=== PATIENT | male | born 1975 | race Caucasian/White ===

== ENCOUNTER 2018-03-22 12:50 | Outpatient (REF) | payer MEDICAID, SELFPAY ==
[2018-03-22 18:25] LABS: Anion Gap 10.5 mmol/L (3-11); BUN 16 mg/dL (7-18); CO2 24.5 mmol/L (21.0-32.0); CREATININE 1.43 mg/dL (0.70-1.30); Calcium 8.5 mg/dL (8.5-10.1); Chloride 104 mmol/L (98-107); Estimated GFR 54.23 (mL/min/1.73m2); Glucose 75 mg/dL (70-100); Potassium 4.2 mmol/L (3.5-5.1); Sodium 139 mmol/L (136-145)
== END 2018-03-22 12:51 ==
LOC: NCHCN 12:50
PROVIDERS: PCP Family Medicine; Visit Provider Nurse Practitioner Family
DX: I10 Essential (primary) hypertension (principal)
CPT/HCPCS: 80048

== ENCOUNTER 2018-05-11 19:18 | Outpatient (REF) | payer MEDICAID, SELFPAY ==
[2018-05-11 20:04] LABS: Cholesterol 235 mg/dL (50-200); HDL Cholesterol 60 mg/dL (40-60); LDL CHOLESTEROL 157 mg/dL (<100); Triglyceride 106 mg/dL (30-150)
== END 2018-05-11 19:38 ==
LOC: NCHCN 19:18
PROVIDERS: PCP Family Medicine; Referring Provider Nurse Practitioner Family; Visit Provider Nurse Practitioner Family
DX: E78.5 Hyperlipidemia, unspecified (principal)
CPT/HCPCS: 80061; 83721

== ENCOUNTER 2018-05-12 15:08 | Outpatient (CLI) | payer MEDICAID, SELFPAY ==
--- NOTE | 2018-05-12 12:00 | SATEXT_ITS ---
Assessment: Trevor presents for nutritional counseling for weight management. He reports that he is on Risperidone which increases his appetite and he eats throughout the night. He states that he is working to decrease his dose of Risperidone. His dietary recall shows that he does not eat breakfast because he has been snacking through the night on whatever is available. He has coffee. He has a large sandwich and a soda or [employer] for lunch. For dinner he has large portions of starch, meat, and vegetable. He states that he drinks water but not enough. We did not discuss his physical activity at this visit. He also reports that he would like to quit smoking concurrent with losing weight. He is 71.5 [address] Nutritional Diagnosis: Class 3 obesity related to excess energy intake and physical inactivity as evidenced by BMI of 49 kg/m2 Intervention: Acknowledged that losing weight and quitting smoking at the same time is a lot to take on however we can certainly develop some action plans for the weight loss. We did not make an action plan for increasing physical activity at this session. We discussed the usefulness of action planning in meeting goals. Trevor plans to increase his water intake and eliminate sugar sweetened beverages over the next few weeks. He is also going to focus on eating protein and vegetables at meal times. Monitoring and Evaluation: 1. Trevor will follow up with me in one month. Will monitor his weight and PO intake. 2. Will evaluate his progress on his action plans and adjust his nutrition care plan accordingly. Thank you for the referral.
== END 2018-05-12 15:28 ==
PROVIDERS: PCP Family Medicine; Visit Provider Dietitian, Registered
DX: E66.8 Other obesity (principal); Z68.42 Body mass index [BMI] 45.0-49.9, adult; Z71.3 Dietary counseling and surveillance
CPT/HCPCS: 97802

== ENCOUNTER 2018-07-18 16:07 | Outpatient (REF) | payer MEDICAID, SELFPAY ==
[2018-07-19 14:16] LABS: ALT 24 U/L (12-78); AST 22 U/L (15-37); Albumin 3.2 g/dL (3.4-5.0); Alkaline Phosphatase 107 U/L (46-116); Anion Gap 12.3 mmol/L (3-11); BUN 35 mg/dL (7-18); Bilirubin, Total 0.2 mg/dL (0.2-1.0); CO2 23.7 mmol/L (21.0-32.0); CREATININE 1.99 mg/dL (0.70-1.30); Calcium 8.6 mg/dL (8.5-10.1); Chloride 102 mmol/L (98-107); Estimated GFR 37.04 (mL/min/1.73m2); Glucose 113 mg/dL (70-100); Potassium 3.3 mmol/L (3.5-5.1); Sodium 138 mmol/L (136-145); Total Protein 7.2 g/dL (6.4-8.2)
== END 2018-07-18 16:27 ==
LOC: NCHCN 16:07
PROVIDERS: PCP Nurse Practitioner Family; Visit Provider Nurse Practitioner Family
DX: E03.9 Hypothyroidism, unspecified (principal)
CPT/HCPCS: 80053; 84443

== ENCOUNTER 2018-10-17 15:53 | Outpatient (REF) | payer MEDICAID, SELFPAY ==
[2018-10-17 18:58] LABS: Anion Gap 12.8 mmol/L (3-11); BUN 22 mg/dL (7-18); CO2 24.2 mmol/L (21.0-32.0); Calcium 8.9 mg/dL (8.5-10.1); Chloride 104 mmol/L (98-107); Estimated GFR 38.88 (mL/min/1.73m2); Glucose 97 mg/dL (70-100); Potassium 3.3 mmol/L (3.5-5.1); Sodium 141 mmol/L (136-145)
== END 2018-10-17 16:13 ==
LOC: NCHCN 15:53
PROVIDERS: PCP Nurse Practitioner Family; Visit Provider Nurse Practitioner Family
DX: E87.6 Hypokalemia (principal)
CPT/HCPCS: 80048

== ENCOUNTER 2019-01-04 17:44 | Outpatient (REF) | payer MEDICAID, SELFPAY ==
[2019-01-04 21:32] LABS: Anion Gap 11.7 mmol/L (3-11); BUN 31 mg/dL (7-18); CO2 25.3 mmol/L (21.0-32.0); CREATININE 1.88 mg/dL (0.70-1.30); Calcium 8.4 mg/dL (8.5-10.1); Chloride 103 mmol/L (98-107); Estimated GFR 39.36 (mL/min/1.73m2); Glucose 96 mg/dL (70-100); NT-proBNP 123 pg/mL; Potassium 3.1 mmol/L (3.5-5.1); Sodium 140 mmol/L (136-145)
[2019-01-04 22:10] LABS: COMMENT (LAB VIEW ONLY) 46.87 mg/dL; PROTEIN 265.9 mg/dL; Prot/Crea Ur Ratio 5.67
== END 2019-01-04 18:04 ==
LOC: NCHCN 17:44
PROVIDERS: PCP Nurse Practitioner Family; Visit Provider Family Medicine
DX: N18.3 Chronic kidney disease, stage 3 (moderate) (principal); L03.90 Cellulitis, unspecified; R06.02 Shortness of breath; I10 Essential (primary) hypertension
CPT/HCPCS: 80048; 82565; 83880; 84156

== ENCOUNTER 2019-01-10 16:31 | Outpatient (REF) | payer MEDICAID, SELFPAY ==
[2019-01-10 19:34] LABS: Anion Gap 10.9 mmol/L (3-11); BUN 27 mg/dL (7-18); CO2 26.1 mmol/L (21.0-32.0); CREATININE 1.66 mg/dL (0.70-1.30); Calcium 8.6 mg/dL (8.5-10.1); Chloride 103 mmol/L (98-107); Estimated GFR 45.44 (mL/min/1.73m2); Glucose 85 mg/dL (70-100); Potassium 3.5 mmol/L (3.5-5.1); Sodium 140 mmol/L (136-145)
== END 2019-01-10 16:51 ==
LOC: NCHCN 16:31
PROVIDERS: PCP Nurse Practitioner Family; Visit Provider Nurse Practitioner Family
DX: N18.3 Chronic kidney disease, stage 3 (moderate) (principal); E87.6 Hypokalemia
CPT/HCPCS: 80048

== ENCOUNTER 2019-01-11 09:15 | Emergency (ER) | payer MEDICAID, SELFPAY ==
[2019-01-11] VITALS (7 sets, daily range): BP systolic 149; BP diastolic 85; PULSE 78–81; RESP 13–20; TEMP 36.4; O2SAT 97–99
--- NOTE | 2019-01-11 09:31 | ED.GENADUL_ITS ---
Discharge Plan Disposition Patient Disposition: HOME Condition: Stable Discharge Details Chief Complaint: SOB Clinical Impression: Shortness of breath, Diuretic-induced hypokalemia Primary Care Provider: Michelle Park ED Provider: Scooby Azul Home Meds and New Rx's Prescriptions: Continued losartan 50 mg Tablet 50 mg PO DAILY RF: 0 furosemide 40 mg Tablet 40 mg PO BID RF: 0 atorvastatin 20 mg Tablet 20 mg PO QHS RF: 0 levothyroxine 50 mcg Tablet 50 mcg PO DAILY RF: 0 quetiapine [Seroquel] 400 mg Tablet 400 mg PO HS RF: 0 Discharge Instructions Instructions: Hypokalemia (ED), Dyspnea (ED) Additional Instructions: Ensure that you eat potassium rich foods while on your water pill. Return to the emergency department for any new or significant worsening of symptoms otherwise keep your appointment as previously scheduled to see her primary care provider next week. Referrals: Michelle Park [Primary Care Provider] - 01/17/19 Discharge Data Discharge Date/Time-TO BE ENTERED AT DEPARTURE: 01/11/19 14:34 Medical Decision Making Patient presenting the emergency department for chief complaint of shortness of breath. Patient states over the last 3 to 4 weeks he has noticed more shortness of breath and typically when he lays flat. Patient was seen by his primary care and concern for CHF and labs were drawn yesterday. Patient states this morning he noted worsening shortness of breath and so came to the emergency department. Patient does state bilateral leg swelling but has noted more swelling on the left leg for the past couple weeks. Patient denies any significant immobility but is significantly overweight/obese and states his activity level is low. Patient denies any family history of blood clots. Patient does state that he smokes and due to this ongoing shortness of breath stopped smoking approximately 1 week ago. He also does state that he wakes up in the middle the night having some difficulty breathing and concern for possible sleep apnea. Physical exam shows clear lung sounds, stable vital signs without hypoxia or tachycardia, normal cardiac exam, patient does have swelling to bilateral lower extremities with some noted increased swelling of the left lower leg but given by patient's body habitus it is difficult to fully distinguish, pulses are palpable bilateral lower extreme is. Concern for DVT/PE, possible COPD, sleep apnea. Patient denies any pain or discomfort. Plan to do labs, EKG, chest x-ray, and ultrasound. Of notation is patient does have history of decreased renal function so plan to do d-dimer. EKG reviewed with Dr. Clark and shows sinus rhythm with rate of 81, no acute ST abnormalities are noted to suggest ischemia. Labs are reviewed and show GFR of 49 which is slightly improved from other labs but ongoing decreased renal function, slightly decreased potassium with plan to orally replete, negative troponin, nondiagnostic CBC, elevated d-dimer 580. Chest x-ray shows Normal chest. No evidence of acute cardiopulmonary disease. And radiologist notes normal heart size. Patient still pending DVT study. DVT study was interpreted as negative for any thrombus. Given patient's complaint of shortness of breath and elevated d-dimer I did discuss with patient CTA. We discussed diet burden on his decreased renal function which today his GFR is 49 and creatinine of 1.54. After discussion of risk versus benefit patient agreed with performing study. I did speak with radiologist performing the scan with patient's ongoing renal issues but given possible emergency of PE plan to do study. Patient given 500 NS bolus to help renal function. Also given the patient has been here greater than 3 hours plan to do repeat troponin for full rule out of ACS which I feel is unlikely given denies of chest pain. The study is negative and shows some slight atelectasis otherwise no acute findings noted. Reassessed patient patient continues to do well. Spoke with patient about ensuring intake of potassium rich foods while on the diuretic, following up with primary care. Given some concern for sleep apnea did discuss with respiratory therapist about sleep study or additional testing. Plan on doing nightly oximetry and follow-up with respiratory therapy as directed. Return precautions discussed. After discussion of diagnosis and plan of care patient is no further needs, questions, or concerns and states clear understanding to return to the emergency department for any worsening symptoms. HPI General Mode of arrival: ambulatory . Date/Time Provider Initiated Documentation: 01/11/19 09:18 . Limitations to Documentation: no limitations . Information obtained by: patient and RN notes reviewed . History of Present Illness 43 year old M presents to the emergency department with the chief complaint of shortness of breath, Quality is described as other (denies), Patient started experiencing this week(s) (3) and it has been constant. No relieving factors improve symptom(s), Patient did receive the following treatments prior to arrival, none Related Data Home Medications Medication Instructions Recorded Confirmed atorvastatin 20 mg PO QHS 01/11/19 01/11/19 furosemide 40 mg PO BID 01/11/19 01/11/19 levothyroxine 50 mcg PO DAILY 01/11/19 01/11/19 losartan 50 mg PO DAILY 01/11/19 01/11/19 quetiapine [Seroquel] 400 mg PO HS 01/11/19 01/11/19 Allergies Allergy/AdvReac Type Severity Reaction Status Date / Time yellowjackets Allergy Uncoded 01/11/19 09:27 General Stated Complaint: SOB YASMINE: 2 Review of Systems Constitutional Denies chills, Denies fever(s) and Denies malaise Cardiovascular Reports as per HPI, Reports chest pain, Denies chest pain with activity, Denies syncope, Denies irregular heart rhythm, Denies palpitations and Denies dyspnea Respiratory Denies cough, Denies hemoptysis and Denies dyspnea Gastrointestinal Denies abdominal pain, Denies nausea and Denies vomiting Neurologic Denies syncope Psychiatric Denies anxiety Endocrine Denies cold intolerance, Denies heat intolerance and Denies palpitations PFSH Social History Smoking/Tobacco Use Status: Former Tobacco Use Quit Date: 01/04/19 Alcohol Intake: former Drug use: Never Substance use type: does not use Do you feel safe at home: Yes Do you feel safe in your relationship?: Yes Exam Const General: cooperative, healthy appearing, comfortable, no acute distress, not diaphoretic and not ill appearing Nutritional Appearance: average body habitus Orientation: alert, awake and oriented x3 Limitations: mental status not altered Neck Neck: normal visual inspection, full ROM, trachea midline, supple and no anterior neck swelling Thyroid: thyroid normal Carotids: normal carotid upstroke and no bruits Chest Chest: normal inspection of the chest Resp Effort & Inspection: normal respiratory effort and able to speak in complete sentences Auscultation: clear to auscultation bilaterally Cardio Jugular venous pressure: no JVD Palpation: normal PMI Rate: regular rate Rhythm: regular rhythm Heart Sounds: S1 normal, S2 normal, no click, no gallops, no murmurs and no rubs Bruits: no abdominal aortic bruits and no carotid bruits Pulses: radial pulses present bilaterally 2+ GI Inspection: normal to inspection Palpation: soft, no aortic enlargement, no pulsatile masses and nontender Auscultation: normal bowel sounds Skin General skin exam: no rashes or lesions noted Neuro General: alert, awake, oriented x3, tone normal and moves all extremities Extrem Right lower extremity: edema Details: non-pitting Left lower extremity: edema Details: non-pitting Course Vital Signs Temperature 36.4 C L 01/11/19 09:22 Pulse 81 01/11/19 09:22 Respiratory Rate 16 01/11/19 09:22 Blood Pressure 149/85 H 01/11/19 09:22 Pulse Oximetry 98 01/11/19 09:22 Temperature 36.4 C L 01/11/19 09:22 Temperature Source Temporal Artery Scan 01/11/19 09:22 Pulse 81 01/11/19 09:22 Respiratory Rate 16 01/11/19 09:22 Blood Pressure 149/85 H 01/11/19 09:22 Blood Pressure Position Sitting 01/11/19 09:22 Pulse Oximetry 98 01/11/19 09:22 Oxygen Delivery Method Room Air 01/11/19 09:22 Oxygen Flow Rate 0 01/11/19 09:22 Pain Level 0 01/11/19 09:22
--- NOTE | 2019-01-11 09:42 | DI.US_ITS ---
SYMPTOMS/DIAGNOSIS: LEG SWELLING RIGHT LEG ULTRASOUND: There is no evidence of DVT. There is no evidence of romeo's cyst or clot in the superficial venous system. LEFT LEG ULTRASOUND: There is no evidence of DVT. There is no evidence of a romeo's cyst or thrombus in the superficial venous system.
[2019-01-11 09:54] LABS: Abs Immature Grans 0.16 k/cumm (0.0-0.09); Absolute Basophil Count 0.07 k/cumm (0.0-0.2); Absolute Eosinophil Count 0.41 k/cumm (0.0-0.7); Absolute Lymphocyte Count 1.48 k/cumm (1.2-3.4); Absolute Monocyte Count 0.86 k/cumm (0.11-0.7); Absolute Neutrophil Count 6.75 k/cumm (1.2-6.7); Basophils % 0.7; Eosinophils % 4.2; HCT 41.6 % (40.0-50.0); HGB 13.6 g/dL (13.5-17.5); Immature Grans % 1.6; Lymphocytes % 15.2; Mean Corp. HGB Concentration 32.7 g/dL (32.0-36.0); Mean Corpuscular Hemoglobin 26.8 pg (27.0-33.0); Mean Corpuscular Volume 82.1 fL (80-95); Mean Platelet Volume 9.7 fL (8.0-11.0); Monocytes % 8.8; Neutrophils % 69.5; Platelet Count 259 x1000/uL (130-400); RBC 5.07 m/cumm (4.50-6.00); RBC Distribution Width 14.9 % (11.8-14.1); White Blood Cell Count 9.73 k/cumm (4.4-10.8)
[2019-01-11 10:08] LABS: INR 0.9 (0.9-1.1); PTT Activated 25.9 sec (21.0-31.4)
[2019-01-11 10:10] LABS: ALT 25 U/L (12-78); AST 19 U/L (15-37); Albumin 2.6 g/dL (3.4-5.0); Alkaline Phosphatase 102 U/L (46-116); Anion Gap 9.4 mmol/L (3-11); BUN 27 mg/dL (7-18); Bilirubin, Total 0.2 mg/dL (0.2-1.0); CO2 26.6 mmol/L (21.0-32.0); CREATININE 1.54 mg/dL (0.70-1.30); Calcium 8.7 mg/dL (8.5-10.1); Chloride 104 mmol/L (98-107); Estimated GFR 49.55 (mL/min/1.73m2); Glucose 90 mg/dL (70-100); Magnesium 2.2 mg/dL (1.8-2.4); Potassium 3.3 mmol/L (3.5-5.1); Sodium 140 mmol/L (136-145)
--- NOTE | 2019-01-11 10:13 | DI.RAD_ITS ---
SYMPTOM/DIAGNOSIS: SOB PA AND LATERAL CHEST: The heart is normal in size. The lungs are clear. The mediastinal structures and pleura appear intact. CONCLUSION: Normal chest. No evidence of acute cardiopulmonary disease.
[2019-01-11 10:24] LABS: D-Dimer 580 ng/mlFEU (<500)
[2019-01-11 10:36] LABS: Troponin I < 0.02 ng/mL (0.00-0.06)
--- NOTE | 2019-01-11 11:57 | DI.CT_ITS ---
SYMPTOMS/DIAGNOSIS: SHORTNESS OF BREATH PE CHEST CTA: CT angiography was performed with multi slice acquisition and multi planar and 3D reconstruction. The study was conducted according to the usual protocol with intravenous administration of 100 cc's of Omnipaque 350. There is no evidence of pulmonary embolic disease. Small regions of atelectasis are noted in the lung bases. There is no pleural effusion. The heart is not enlarged. There is no evidence of a pericardial effusion. There is no evidence of an acute aneurysm.
[2019-01-11] MEDS: Normal Saline 500 ML IV (12:45)
[2019-01-11] MEDS: Normal Saline Flush 10 ML SYR IVP (12:45)
[2019-01-11] MEDS: Omnipaque 350 MG/ML 100 ML BTL IJ (12:46)
[2019-01-11] MEDS: POTASSIUM CHLORIDE 20 MEQ, POTASSIUM CHLORIDE 10 MEQ 30 MEQ PO (13:02)
--- NOTE | 2019-01-11 13:34 | RESPIRATORY ---
01/11/19-Discussed with Pt about nicotine replacement . States he uses the patch and gum and is still having a hard time. Pt would like to try nicotrol haler. I have contacted [facility]'s nurse to request a RX . PFT and sleep study referral requested as well. Overnight Oximetry given to pt to wear tonnight, as well.
[2019-01-11 14:01] LABS: Troponin I < 0.02 ng/mL (0.00-0.06)
[2019-01-11] MEDS: Nicotine 4 MG GUM (14:36)
--- NOTE | 2019-01-12 09:40 | SAO2N_ITS ---
SAO2 with Exercise Patient:BETHANIE CAMARA Date/Time: 01/12/19 0940 [id number] Tech:
== END 2019-01-11 14:34 | disposition home or self-care (01) ==
PROVIDERS: Emergency Provider Nurse Practitioner Family; PCP Nurse Practitioner Family
DX: R06.02 Shortness of breath (principal); T50.2X5A Adverse effect of carbonic-anhydrase inhibitors, benzothiadiazides and other diuretics, initial encounter; E87.6 Hypokalemia; R60.0 Localized edema; F17.210 Nicotine dependence, cigarettes, uncomplicated
CPT/HCPCS: 36415; 71275; 80053; 93005; 96360; 99284; 71046; 83735; 84484; 85025; 85379; 85610; 85730; 93010; 93970; 94762; J3490

== ENCOUNTER 2019-01-13 01:33 | Outpatient (CLI) | payer MEDICAID, SELFPAY ==
--- NOTE | 2019-01-13 16:00 | DI.US_ITS ---
SYMPTOM/DIAGNOSIS: CHRONIC KIDNEY DISEASE, N18.3 RENAL ULTRASOUND: The kidneys are normal in size and shape and there is no evidence of a renal mass, hydronephrosis or nephrolithiasis. Urinary bladder is unremarkable in appearance and empties completely with voiding with pre and post void urinary bladder volume measurements of 40 cc's and 0 cc's respectively. CONCLUSION: Negative renal ultrasound.
== END 2019-01-13 01:53 ==
PROVIDERS: PCP Nurse Practitioner Family; Visit Provider Family Medicine
DX: N18.3 Chronic kidney disease, stage 3 (moderate) (principal)
CPT/HCPCS: 76770

== ENCOUNTER 2019-01-18 16:06 | Outpatient (REF) | payer MEDICAID, SELFPAY ==
[2019-01-18 19:31] LABS: Anion Gap 5.5 mmol/L (3-11); BUN 15 mg/dL (7-18); CO2 26.5 mmol/L (21.0-32.0); Calcium 8.3 mg/dL (8.5-10.1); Chloride 106 mmol/L (98-107); Estimated GFR 47.41 (mL/min/1.73m2); Glucose 90 mg/dL (70-100); Sodium 138 mmol/L (136-145)
== END 2019-01-18 16:26 ==
LOC: NCHCN 16:06
PROVIDERS: PCP Nurse Practitioner Family; Visit Provider Nurse Practitioner Family
DX: N18.3 Chronic kidney disease, stage 3 (moderate) (principal); E87.6 Hypokalemia; R60.0 Localized edema
CPT/HCPCS: 80048

== ENCOUNTER 2019-07-20 16:31 | Inpatient (IN) | payer MEDICAID, SELFPAY ==
[2019-07-20] VITALS (10 sets, daily range): BP systolic 159–189; BP diastolic 88–112; PULSE 66–76; RESP 4–21; TEMP 36.6–36.9; O2SAT 93–96
[2019-07-20] MEDS: Albuterol/Ipratropium 3 ML UPD VIAL ×2 (16:42→18:30)
[2019-07-20] MEDS: Lidocaine 5% Patch 1 PATCH (16:42)
--- NOTE | 2019-07-20 16:51 | W.ED.GENAD ---
Discharge Plan Disposition Patient Disposition: [facility] INPATIENT Condition: Good Discharge Details Chief Complaint: Abd Prob Clinical Impression: FRANCY (acute kidney injury), Multiple pulmonary nodules, Bronchitis Primary Care Provider: Michelle Park ED Provider: Wes Carpenter Home Meds and New Rx's Prescriptions: No Action acetaminophen [Tylenol Extra Strength] 500 mg Tablet 1,000 mg PO PRN PRNRF: 0 losartan 50 mg Tablet 50 mg PO DAILY RF: 0 furosemide 40 mg Tablet 40 mg PO BID RF: 0 atorvastatin 20 mg Tablet 20 mg PO QHS RF: 0 levothyroxine 50 mcg Tablet 50 mcg PO DAILY RF: 0 quetiapine [Seroquel] 400 mg Tablet 350 mg PO HS RF: 0 Medical Decision Making This is a pleasant 43-year-old male with a past medical history of hypertension, congestive heart failure on regular Lasix, high cholesterol morbid obesity who presents today for evaluation of right lower chest and right upper abdominal pain. Patient has not had any of his 40 mg twice daily Lasix for the last month, he has noticed a weight gain, significant consistent cough. Over the last 48 hours after significant coughing episodes he had notable pain in the right lower chest and right upper abdomen. Exam demonstrates diffuse crackles and wheezes throughout, mild pitting edema, questionable bulge versus hernia in the right upper quadrant of the abdomen. Differential includes rib fracture muscle sprain in a notable CHF exacerbation. We will diurese, given sublingual nitroglycerin, given DuoNeb, and reassess. 7 PM Reassessment with Dilaudid and DuoNeb the patient is feeling better, pain is still present with movement though. CT imaging shows some pulmonary nodules but no other acute abnormality in the chest, no rib fracture. No other acute abdominal pathologies. No evidence of hernia. I suspect the bulge that I was feeling was more so of a rectus diastases potentially in the obese abdomen. Labs interestingly show a notably elevated creatinine at 2.2, which is a jump from his baseline of 1.5. BUN 27, electrolytes normal, he is making urine and did urinate 400 mL's. Troponin is normal, pro proBNP is 540, urinalysis does show notable protein and moderate blood. Although clinically the patient appeared to look more like CHF exacerbation now in this setting with laboratory work-up I feel that there may be more so of a component of hypertensive acute kidney injury with potential mild fluid overload. I do feel that the patient is suffering from bronchitis as the cause of his cough, however with his acute kidney injury, and fragile fluid status I do feel that he would benefit from admission, formal echo, and close monitoring. I did contact the hospitalist and discussed the case with , he agrees with the assessment and plan. I will place admission orders. I have extensively reviewed the treatment plan with the patient. I have addressed all patient concerns at this time. I have also discussed the plan with the admitting physician and they agree with the current assessment and plan and have agreed to assume responsibility for the patient. All parties demonstrate verbal understanding and agreement with our assessment and plan at this time. EKG 17: 00 Rate 71, intervals normal, sinus rhythm, no significant ST elevation or depression, no T wave inversions except for in V1. No evidence of STEMI. No Q waves. FINDINGS: Lungs: 9 mm nodule along the right minor fissure (2/29). 4 mm nodule in the lateral segment of the right lower lobe (slice 53). 3 mm nodule in the lateral segment of the left lower lobe (2/49). 2 mm nodule in the lateral segment of the left lower lobe (2/42). Pleural space: Unremarkable. No pneumothorax. No pleural effusion. Heart: Unremarkable. No cardiomegaly. No pericardial effusion. Aorta: Unremarkable. No aortic aneurysm. Lymph nodes: Unremarkable. No enlarged lymph nodes. Bones/joints: Unremarkable. No acute fracture. Soft tissues: Unremarkable. IMPRESSION: Pulmonary nodules.For patients at low risk (minimal or absent history of smoking and of other known risk factors), recommend CT at 3-6 months, then consider CT at 18-24 months. For patients at high risk (history of smoking or of other known risk factors), recommend CT at 3-6 months, then CT at 18-24 months. (Lou et al., Fleischner Society, 2017) FINDINGS: Liver: Normal. No mass. Gallbladder and bile ducts: Normal. No calcified stones. No ductal dilation. Pancreas: Normal. No ductal dilation. Spleen: Normal. No splenomegaly. Adrenals: Normal. No mass. Kidneys and ureters: Normal. No hydronephrosis. Stomach and bowel: Unremarkable. No obstruction. No mucosal thickening. Appendix: No evidence of appendicitis. Intraperitoneal space: Unremarkable. No free air. No significant fluid collection. Vasculature: Unremarkable. No abdominal aortic aneurysm. Lymph nodes: Unremarkable. No enlarged lymph nodes. Bladder: Unremarkable as visualized. Reproductive: Unremarkable as visualized. Bones/joints: Unremarkable. No acute fracture. Soft tissues: Unremarkable. IMPRESSION: No acute findings. Dictated and Authenticated by: Mick Cleaning MD. HPI General Date/Time Provider Initiated Documentation: 07/20/19 16:33. HPI Narrative: This is a pleasant 43-year-old male with a past medical history of thyroid disease, congestive heart failure with 40 mg of Lasix twice daily, high cholesterol, obesity, hypertension, who presents today for evaluation of right-sided rib and upper abdomen pain, in conjunction with cough and shortness of breath. Patient states that for the last month he has not had any of his normal Lasix, he has noticed a weight gain recently. He has been having a continuous cough, he has notable positional nocturnal dyspnea. His cough has been absent of hemoptysis, or atypical colors. Over the last 48 hours the patient after significant coughing episodes had significant right-sided lower chest pain and right upper quadrant abdominal pain. Worse with coughing, not present with breathing in general. He denies any fever or chills, he denies any history of blood clots recent long trips surgeries or procedures. He denies any central chest pain chest pressure chest heaviness. He has no other complaints at this time. Related Data Home Medications Medication Instructions Recorded Confirmed atorvastatin 20 mg PO QHS 01/11/19 07/20/19 furosemide 40 mg PO BID 01/11/19 07/20/19 levothyroxine 50 mcg PO DAILY 01/11/19 07/20/19 losartan 50 mg PO DAILY 01/11/19 07/20/19 quetiapine [Seroquel] 350 mg PO HS 01/11/19 07/20/19 acetaminophen [Tylenol Extra 1,000 mg PO PRN PRN 07/20/19 07/20/19 Strength] Allergies Allergy/AdvReac Type Severity Reaction Status Date / Time yellowjackets Allergy Uncoded 07/20/19 16:40 General Stated Complaint: Abd Prob YASMINE: 3 Review of Systems All systems reviewed & are unremarkable except as noted in HPI and below PFSH Social History Smoking/Tobacco Use Status: Former Tobacco Use Quit Date: 01/04/19 Alcohol Intake: former Drug use: Never Substance use type: does not use Do you feel safe at home: Yes Do you feel safe in your relationship?: Yes Exam Narrative Exam Narrative: 1.Const: Well-nourished, Well-developed, appearing stated age 2.Eyes: PERRL, no conjunctival injection, and symmetrical lids. 3.ENT: Atraumatic external nose and ears. Moist MM. Neck: Symmetric, trachea midline, No thyromegaly. 4.CVS: +S1/S2, No murmurs or gallops. Peripheral pulses 2+ and equal in all extremities. Brisk capillary refill in all extremities. 5.RESP: Mildly labored respiratory effort, crackles in the bases bilaterally, diffuse wheezes throughout. 6.GI: Soft, Nondistended, No hepatosplenomegaly. No guarding or rebound. Questionable bulge in the right upper quadrant of the abdomen, difficult to ascertain secondary to the patient's obesity. 7.MSK: Normocephalic/Atraumatic, Extremities w/o deformity or ttp No cyanosis or clubbing, Normal movement of all extremities, mild tibial pitting edema bilaterally. 8.Skin: Warm, Dry. No rashes or lesions. 9.Neuro: senior etl developer II-XII grossly intact. Sensation grossly intact, no focal neurologic deficits. 10.Psych: (AAO) x3. Appropriate mood and affect Course Vital Signs Vital signs: Vital Signs Temperature 36.6 C 07/20/19 16:31 Pulse 76 07/20/19 16:31 Respiratory Rate 18 07/20/19 16:31 Blood Pressure 189/107 H 07/20/19 16:31 Pulse Oximetry 95 07/20/19 16:31 Temperature 36.6 C 07/20/19 16:31 Temperature Source Skin 07/20/19 16:31 Pulse 76 07/20/19 16:31 Respiratory Rate 18 07/20/19 16:31 Respiratory Effort 07/20/19 16:38 Blood Pressure 189/107 H 07/20/19 16:31 Blood Pressure Position Supine 07/20/19 16:31 Pulse Oximetry 95 07/20/19 16:31 Oxygen Delivery Method Room Air 07/20/19 16:31 Oxygen Flow Rate 0 07/20/19 16:31 Pain Level 10 07/20/19 16:31
[2019-07-20] MEDS: Ketorolac 30 MG/ML VIAL IVPB (16:56)
[2019-07-20] MEDS: Furosemide 40 MG/4 ML VIAL IVP (16:57)
[2019-07-20 17:09] LABS: Abs Immature Grans 0.07 k/cumm (0.0-0.09); Absolute Basophil Count 0.06 k/cumm (0.0-0.2); Absolute Eosinophil Count 0.31 k/cumm (0.0-0.7); Absolute Lymphocyte Count 1.58 k/cumm (1.2-3.4); Absolute Monocyte Count 0.68 k/cumm (0.11-0.7); Absolute Neutrophil Count 5.62 k/cumm (1.2-6.7); Basophils % 0.7; Eosinophils % 3.7; HGB 13.7 g/dL (13.5-17.5); Immature Grans % 0.8; Mean Corp. HGB Concentration 32.6 g/dL (32.0-36.0); Mean Corpuscular Hemoglobin 26.4 pg (27.0-33.0); Mean Corpuscular Volume 81.1 fL (80-95); Mean Platelet Volume 9.6 fL (8.0-11.0); Monocytes % 8.2; Neutrophils % 67.6; Platelet Count 227 x1000/uL (130-400); RBC 5.18 m/cumm (4.50-6.00); White Blood Cell Count 8.32 k/cumm (4.4-10.8)
[2019-07-20] MEDS: Ondansetron 4 MG/2 ML VIAL IVP (17:23)
[2019-07-20] MEDS: HYDROmorphone 2 MG/ML VIAL 1 MG IVP ×2 (17:24→18:31)
[2019-07-20 17:26] LABS: ALT 21 U/L (16-63); AST 24 U/L (15-37); Albumin 2.1 g/dL (3.4-5.0); Alkaline Phosphatase 104 U/L (46-116); Anion Gap 10.5 mmol/L (3-11); BUN 27 mg/dL (7-18); Bilirubin, Total 0.2 mg/dL (0.2-1.0); CO2 22.5 mmol/L (21.0-32.0); Calcium 8.4 mg/dL (8.5-10.1); Chloride 108 mmol/L (98-107); Estimated GFR 32.83 (mL/min/1.73m2); Glucose 102 mg/dL (74-106); Sodium 141 mmol/L (136-145); Total Protein 6.5 g/dL (6.4-8.2); Troponin I < 0.05 ng/Ml (<0.06)
[2019-07-20 17:44] LABS: Lipase 97 U/L (73-393); NT-proBNP 540 pg/mL (<300)
--- NOTE | 2019-07-20 17:52 | DI.CT_ITS ---
EXAM: CT CHEST/ABD/PEL WO CLINICAL HISTORY: right lower CP and RUQ pain/mass TECHNIQUE: Imaging Protocol: Axial computed tomography images with coronal and sagittal reformatted images were created and reviewed CONTRAST MATERIAL: Intravenous: Omnipaque 350 Contrast volume:0 mL contrast route:IV - Oral: No COMPARISON: CT CHEST PE CTA from 01/11/2019 FINDINGS: CHEST: Tracheobronchial tree: Patent where visualized. Mediastinum and Kathrin: No dominant adenopathy or fluid collection. Pulmonary parenchyma: No consolidation. There are pulmonary nodules present. The largest is along the right minor fissure and measures 9 millimeters. (Series 2, image 29). There is a 4 millimeter nodule in the right lower lobe (series 2, image 53). There is a 3 millimeter nodule in the lateral segment of the left lower lobe (series 2, image 49). There is a 2 millimeter nodule in the lateral segment of the left lower lobe (series 2, image 42). No architectural distortion. Pleura: No effusion or pneumothorax. Aorta: Thoracic portion non-dilated. Heart: No cardiomegaly. No pericardial effusion. No coronary artery calcification. ABDOMEN: Liver: Normal density. No measurable mass. Gallbladder and biliary tract: No radiodense calculus or dilation. Pancreas: Normal density, no abnormal calcifications or inflammatory process. Spleen: Normal. Kidneys: Normal size, contour and axis. No radiodense stones or obstructive uropathy. No masses seen. Adrenal glands: There is a stable 1.7 centimeter left adrenal nodule. The right adrenal gland is unr emarkable. Lymph nodes: Within normal limits. Aorta: Abdominal portion non-dilated. PELVIS: Bladder: Symmetric distention, no gross wall thickening. Bowel: The mid sigmoid colon there is a very narrowed section of bowel measuring approximately 4 cent imeters in length. The diameter is less than 1 centimeter. The proximal colon is not dilated. Ther e is a moderate amount of stool throughout the colon. A normal appendix is visualized. The remainder of the bowel is unremarkable. Peritoneal cavity: No ascites, collection or mesenteric inflammatory response. Bones: Within normal limits. Reproductive organs: Within normal limits. IMPRESSION: 1. 4 centimeter length of narrowed bowel in the mid sigmoid colon. Barium enema or colonoscopy are r ecommended for further evaluation. Colonoscopy may also be considered 2. No acute pulmonary process. 3. Multiple pulmonary nodules. Follow-up CT is recommended in 3 months given the size of the largest pulmonary nodule. These findings were discussed with the emergency department on 07/21/19. 3 to 6 months for re evaluation. DATA REPOSITORY: All CT scans at this facility are submitted to the National Radiology Data Registry (NRDR) Dose Index Registry (DIR) with the [employer] (A[employer]). RADIATION OPTIMIZATION: All CT scans at this facility use at least one of these dose optimization te chniques: automated exposure control; mA and/or kV adjustment per patient size (includes targeted exa ms where dose is matched to clinical indication); or iterative reconstruction.
--- NOTE | 2019-07-20 18:19 | DI.VRAD_ITS ---
PROCEDURE INFORMATION: Exam: CT Chest Without Contrast Exam date and time: 07/20/2019 5:50 PM Age: 43 years old Clinical history: Other: Ruq pain/mass; Other: Right lower cp TECHNIQUE: Imaging protocol: Computed tomography of the chest without contrast. Radiation optimization: All CT scans at this facility use at least one of these dose optimization techniques: automated exposure control; mA and/or kV adjustment per patient size (includes targeted exams where dose is matched to clinical indication); or iterative reconstruction. COMPARISON: US renal 01/13/2019 3:41 PM FINDINGS: Lungs: 9 mm nodule along the right minor fissure (2/29). 4 mm nodule in the lateral segment of the right lower lobe (slice 53). 3 mm nodule in the lateral segment of the left lower lobe (2/49). 2 mm nodule in the lateral segment of the left lower lobe (2/42). Pleural space: Unremarkable. No pneumothorax. No pleural effusion. Heart: Unremarkable. No cardiomegaly. No pericardial effusion. Aorta: Unremarkable. No aortic aneurysm. Lymph nodes: Unremarkable. No enlarged lymph nodes. Bones/joints: Unremarkable. No acute fracture. Soft tissues: Unremarkable. IMPRESSION: Pulmonary nodules.For patients at low risk (minimal or absent history of smoking and of other known risk factors), recommend CT at 3-6 months, then consider CT at 18-24 months. For patients at high risk (history of smoking or of other known risk factors), recommend CT at 3-6 months, then CT at 18-24 months. (Lou et al., Fleischner Society, 2017) PROCEDURE INFORMATION: Exam: CT Abdomen And Pelvis Without Contrast Exam date and time: 07/20/2019 5:50 PM Age: 43 years old Clinical history: Other: Ruq pain/mass; Other: Right lower cp TECHNIQUE: Imaging protocol: Computed tomography of the abdomen and pelvis without contrast. Radiation optimization: All CT scans at this facility use at least one of these dose optimization techniques: automated exposure control; mA and/or kV adjustment per patient size (includes targeted exams where dose is matched to clinical indication); or iterative reconstruction. COMPARISON: US renal 01/13/2019 3:41 PM FINDINGS: Liver: Normal. No mass. Gallbladder and bile ducts: Normal. No calcified stones. No ductal dilation. Pancreas: Normal. No ductal dilation. Spleen: Normal. No splenomegaly. Adrenals: Normal. No mass. Kidneys and ureters: Normal. No hydronephrosis. Stomach and bowel: Unremarkable. No obstruction. No mucosal thickening. Appendix: No evidence of appendicitis. Intraperitoneal space: Unremarkable. No free air. No significant fluid collection. Vasculature: Unremarkable. No abdominal aortic aneurysm. Lymph nodes: Unremarkable. No enlarged lymph nodes. Bladder: Unremarkable as visualized. Reproductive: Unremarkable as visualized. Bones/joints: Unremarkable. No acute fracture. Soft tissues: Unremarkable. IMPRESSION: No acute findings. Dictated and Authenticated by: Mick Cleaning MD. Ordering:NIMCO Harvey MD
[2019-07-20] MEDS: Labetalol 100 MG/20 ML VIAL 10 MG IVP (18:30)
[2019-07-20 19:22] LABS: Bilirubin Negative (Negative); Blood Moderate (Negative); Clarity Clear (Clear); Glucose Negative (Negative); Ketones Negative (Negative); Leukocyte Esterase Negative (Negative); Nitrite Negative (Negative); Specific Gravity 1.025 (1.005-1.025); Urobilinogen 0.2 EU/dL (Up TO 0.2); pH 5.5 (5-8)
[2019-07-20 19:29] LABS: Bacteria Negative HPF (Negative); C & S Indicated? No; Casts Negative LPF (Negative); Crystals Few Amorphous HPF (Negative); Epithelial Cells Negative HPF (Negative); Mucus Trace (Negative); Other Cells Negative (Negative); RBC Negative HPF (0-2); WBC 0-2 HPF (0-5)
[2019-07-20 20:01] LABS: Troponin I < 0.05 ng/Ml (<0.06)
--- NOTE | 2019-07-20 21:46 | W.PM.HP.N ---
Date of service: 07/20/19 Time of Service: 21:46 Assessment and Plan Assessment and plan (1) Bronchitis, acute, with bronchospasm: Status: Acute Assessment and plan: We will treat his acute reactive airway disease with aerosolized bronchodilators along with IV corticosteroids and transition over to prednisone tomorrow. There is some questionable purulence to his sputum. He reportedly had recent change in his sputum production to a brownish from a previous color of whitish mucus. He has no fever or leukocytosis therefore it is less likely that it is a bacterial infection. Nevertheless I will cover him with some doxycycline in addition to the above remedies. For his coughing paroxysms him to start him on Tessalon Perles and Mucinex. His chest wall and abdominal pain will be treated with Lidoderm patch along with Tylenol. He should avoid NSAIDs because of his chronic kidney disease. (2) Essential hypertension, benign: Status: Acute Assessment and plan: His essential hypertension is poorly controlled due to multiple reasons. First and foremost he ran out of his furosemide although he states he is continued to take his losartan. Secondly he is recently been diagnosed with obstructive sleep apnea for which she has not yet been treated. He says he is scheduled for follow-up study July 27. I presume they will do a titration study at that point. This should help with his essential hypertension and help prevent right-sided heart failure. Although Dr. Carpenter is documented that he has a history of CHF the patient is not aware of any formal diagnosis of CHF and has not had an echocardiogram. I will obtain an echocardiogram to evaluate LV function as well as LV size and to look for LVH as well as to evaluate right ventricular size and function. He will also get a renal ultrasound to evaluate his kidney since he has evidence of chronic kidney disease. (3) Chronic kidney disease: Status: Acute Assessment and plan: Avoidance of NSAIDs for control of his abdominal chest wall pain. Because he has significant proteinuria on his urinalysis and a high urinary protein to creatinine ratio he should remain on an angiotensin receptor ratna or an ALISON inhibitor. He states that he has not missed any doses of his losartan 50 mg daily. I am going to increase his losartan dose to 100 mg daily to help control his blood pressure as well as his proteinuria. Qualifiers: Chronic kidney disease stage: stage 3 (moderate) Qualified Code(s): N18.3 - Chronic kidney disease, stage 3 (moderate) (4) Hypothyroidism (acquired): Status: Acute Assessment and plan: We will check a TSH and resume his previous dose of levothyroxine. (5) Hyperlipidemia: Status: Acute Assessment and plan: Continue his atorvastatin which he has been off of for the past month Qualifiers: Hyperlipidemia type: unspecified Qualified Code(s): E78.5 - Hyperlipidemia, unspecified (6) Obstructive sleep apnea: Status: Chronic Assessment and plan: Patient will follow-up with the sleep lab for a titration study later this month. (7) PTSD (post-traumatic stress disorder): Status: Acute Assessment and plan: Continue his current dose of Seroquel and sertraline. Follow-up with [facility] as previously scheduled. (8) Pulmonary nodules/lesions, multiple: Status: Acute Assessment and plan: Patient has been advised he needs a follow-up CT scan of his chest in 3 to 6 months and he needs to quit smoking. He will follow-up with Michelle Wynn his primary care provider. History of Present Illness History of Present Illness Chief Complaint: cough, short of breath, CP/abdominal pain Narrative: 43-year-old male with a history of essential hypertension, hyperlipidemia, depression and anxiety disorder who presents emergency department with a four 5-day history of minimally productive cough no associated with any fever or chills. Today he was coughing so hard he developed some right-sided upper abdominal pain and chest wall pain. He coughed so hard that now when he coughs or sneezes his right side hurts. Patient admits that he ran out of his furosemide which he normally takes 40 mg twice a day along with losartan 50 mg daily for his essential hypertension. He states that his pharmacy was brought out by [facility] and they would not honor his previous prescription and he just had not bothered to call his primary care provider to get a new prescription for the furosemide. He is noticed increased pedal edema and with a cough he has been wheezing and short of breath. He was evaluated emergency department by Dr. Wes Carpenter, emergency room attending, see his note for details. Upon arrival to the emergency department patient was noted to be significantly hypertensive with a systolic blood pressure 189 over diastolic pressure 107. This remained elevated at 184/112. He was treated in the emergency department with Lexii pierre for his chest and abdominal wall pain and was given Lasix 40 mg IV and labetalol 10 mg IV for his blood pressure. Subsequently his diagnostic tests include a CBC chemistry profile and a urinalysis. CBC showed no anemia and no leukocytosis. Chemistry panel showed worsening of his chronic kidney disease. His creatinine is 2.20 whereas his baseline is between 1.6 and 1.8. His BUN of 27 is approximately his baseline. His troponin I level was normal at less than 0.05?2 sets. His proBNP was 540 which is slightly elevated and his lipase was normal at 97 and his LFTs were normal. His ECG demonstrated normal sinus rhythm with no ischemic ST or T wave changes and no evidence for LVH. He had a normal appearance to his ECG. And is unchanged from his prior ECG of January 11, 2019. CT scan of the chest abdomen pelvis was performed without contrast he was found to have 4 sub-1 cm nodules. 2 of them in the right lung and 2 in the left lung. The largest was a 9 mm nodule in the right minor fissure. He also has a 4 mm nodule in the right lateral segment of the right lower lobe. And a 3 mm nodule in the lateral segment of the left lower lobe and a 2 mm nodule in the lateral segment of the left lower lobe. He has no pleural effusions and no cardiomegaly and no pericardial effusion and no evidence for aortic aneurysm. Patient was advised of these lung nodules and the need to quit smoking and also advised to get a repeat CT scan in 3 to 6 months. Patient is admitted under observation for treatment of of his poorly controlled hypertension. He is also going to be treated for his acute reactive airway disease caused by an acute bronchitic condition. He also be treated with Tylenol and Lidoderm patch for his chest wall and abdominal wall pain. Again the patient was advised of his need to quit smoking and he says he has cut down to half a pack of cigarettes per day but because of anxiety and depression he has had difficulty quitting entirely. He understands he needs to follow-up with a repeat CT scan in 3 to 6 months time. He also understands he needs to remain on his medications in order to control his blood pressure and he understands that his hypertension is contributing to his chronic kidney disease. Review of Systems Constitutional Constitutional: Reports body ache(s), Denies chills, Reports daytime sleepiness, Reports difficulty sleeping, Reports excessive sweating, Reports fatigue, Denies fever(s) and Reports snoring Eyes Eyes: Reports system reviewed and no additional complaints, except as docu ENT Ears, Nose, Mouth, and Throat: Reports system reviewed and no additional complaints, except as docu Cardiovascular Cardiovascular: Reports chest pain (chest wall pain w/ coughing), Denies chest pain with activity, Reports leg edema, Reports dyspnea and Reports dyspnea on exertion Respiratory Respiratory: Reports change in phlegm color, Reports cough, Reports pain with cough, Reports dyspnea, Reports dyspnea on exertion, Reports snoring and Reports wheezing Gastrointestinal Gastrointestinal: Reports abdominal pain (RUQ w/ coughing or sneezing), Denies change in bowel habits, Denies nausea and Denies vomiting Genitourinary Genitourinary: Reports system reviewed and no additional complaints, except as docu Musculoskeletal Musculoskeletal: Reports system reviewed and no additional complaints, except as docu Integumentary/Breasts Skin/Breast: Reports system reviewed and no additional complaints, except as docu Neurologic Neurologic: Reports system reviewed and no additional complaints, except as docu Psychiatric Psychiatric: Reports anxiety Endocrine Endocrine: Reports excessive sweating and Reports fatigue Hematologic/Lymphatic Hematologic/Lymphatic: Reports system reviewed and no additional complaints, except as docu Allergic/Immunologic Allergic/Immunologic: Reports wheezing [facility] Medical History Anxiety disorder (Acute) Chronic kidney disease (Acute) Depression (Chronic) Essential hypertension, benign (Acute) Hyperlipidemia (Acute) Hypothyroidism (acquired) (Acute) Obstructive sleep apnea (Chronic) PTSD (post-traumatic stress disorder) (Acute) Social History (Updated 07/20/19 @ 23:42 by Tomasz Man) Smoking/Tobacco Use Status: Current-Occasional Tobacco Type: cigarettes Smoking packs per day: 0.5 Smoking cigarettes per day: 10.0 Years smoked: 2 Smoking pack-years: 1.00 Alcohol Intake: former Drug use: Never Substance use type: does not use Do you feel safe at home: Yes Do you feel safe in your relationship?: Yes Meds Home Medications and Allergies Home Medications Medication Instructions Recorded Confirmed Type atorvastatin 20 mg PO QHS 01/11/19 07/20/19 History furosemide 40 mg PO BID 01/11/19 07/20/19 History levothyroxine 50 mcg PO DAILY 01/11/19 07/20/19 History losartan 50 mg PO DAILY 01/11/19 07/20/19 History acetaminophen [Tylenol Extra 1,000 mg PO PRN PRN 07/20/19 07/20/19 History Strength] quetiapine [Seroquel] 50 mg PO QHS 07/20/19 07/20/19 History quetiapine [Seroquel] 300 mg PO QHS 07/20/19 07/20/19 History sertraline 50 mg PO HS 07/20/19 07/20/19 History Allergies Allergy/AdvReac Type Severity Reaction Status Date / Time yellowjackets Allergy Uncoded 07/20/19 16:40 Exam Narrative Exam Narrative: Obese middle-aged male who was having incessant nonproductive coughing and a paroxysm. He is alert and oriented person place time circumstance. HEENT is unremarkable. Neck obese supple nontender without lymphadenopathy or thyromegaly. Normal carotid pulses. Lungs diffuse scattered expiratory wheezing without rhonchi or rales. No dullness to percussion. Heart is regular in rate and rhythm without murmur rub or gallop. No palpable thrill or heave. Abdomen obese soft with mild tenderness with deep palpation of the right upper quadrant. No guarding or rebound tenderness. Normoactive bowel sounds. Lower extremities with a trace of pedal edema. Normal pedal pulses. No calf tenderness. Negative Homans sign. Neurologic exam nonfocal with no gross cranial nerve or motor or sensory abnormalities. Genitalia rectal exam deferred. Results Imaging Abdomen CT scan report/results: report reviewed CT scan - chest: report reviewed CT scan - pelvis: report reviewed EKG: image reviewed Labs Result diagrams: 07/20/19 16:45 07/20/19 16:45 Labs: Laboratory Results - last 24 hr 07/20/19 07/20/19 07/20/19 16:45 16:45 19:14 WBC 8.32 RBC 5.18 Hgb 13.7 Hct 42.0 MCV 81.1 MCH 26.4 L MCHC 32.6 RDW 15.0 H Plt Count 227 MPV 9.6 Immature Gran % 0.8 Neutrophils % 67.6 Lymphocytes % 19.0 Monocytes % 8.2 Eosinophils % 3.7 Basophils % 0.7 Absolute Neutrophils 5.62 Absolute Lymphocytes 1.58 Absolute Monocytes 0.68 Absolute Eosinophils 0.31 Absolute Basophils 0.06 Sodium 141 Potassium 4.0 Chloride 108 H Carbon Dioxide 22.5 Anion Gap 10.5 BUN 27 H Creatinine 2.20 H Estimated GFR/1.73 m2 32.83 Glucose 102 Calcium 8.4 L Total Bilirubin 0.2 AST 24 ALT 21 Alkaline Phosphatase 104 Troponin I < 0.05 NT-Pro-B Natriuret Pep 540 Total Protein 6.5 Albumin 2.1 L Lipase 97 Urine Color Yellow Urine Clarity Clear Urine pH 5.5 Ur Specific Ragland 1.025 Urine Protein >=300 H Urine Ketones Negative Urine Blood Moderate H Urine Nitrite Negative Urine Bilirubin Negative Urine Urobilinogen 0.2 Ur Leukocyte Esterase Negative Urine RBC Negative Urine WBC 0-2 Ur Epithelial Cells Negative Urine Crystals Few amorphous Urine Bacteria Negative Urine Casts Negative Urine Mucus Trace Urine Other Negative Ur Culture Indicated? No Urine Glucose Negative 07/20/19 19:38 WBC RBC Hgb Hct MCV MCH MCHC RDW Plt Count MPV Immature Gran % Neutrophils % Lymphocytes % Monocytes % Eosinophils % Basophils % Absolute Neutrophils Absolute Lymphocytes Absolute Monocytes Absolute Eosinophils Absolute Basophils Sodium Potassium Chloride Carbon Dioxide Anion Gap BUN Creatinine Estimated GFR/1.73 m2 Glucose Calcium Total Bilirubin AST ALT Alkaline Phosphatase Troponin I < 0.05 NT-Pro-B Natriuret Pep Total Protein Albumin Lipase Urine Color Urine Clarity Urine pH Ur Specific Ragland Urine Protein Urine Ketones Urine Blood Urine Nitrite Urine Bilirubin Urine Urobilinogen Ur Leukocyte Esterase Urine RBC Urine WBC Ur Epithelial Cells Urine Crystals Urine Bacteria Urine Casts Urine Mucus Urine Other Ur Culture Indicated? Urine Glucose Last Vital Signs Temp 36.6 C 07/20/19 19:47 Pulse 66 07/20/19 19:47 Resp 20 07/20/19 19:47 BP 173/91 H 07/20/19 19:47 Pulse Ox 94 L 07/20/19 19:47
[2019-07-20] MEDS: Atorvastatin 20 MG TAB PO (21:49)
[2019-07-20] MEDS: QUEtiapine 25 MG TAB 50 MG PO (21:49)
[2019-07-20] MEDS: QUEtiapine 300 MG TAB PO (21:49)
[2019-07-20] MEDS: Carvedilol 6.25 MG TAB PO (21:50)
[2019-07-20] MEDS: Enoxaparin 40 MG/0.4 ML SYR SC (21:50)
[2019-07-20] MEDS: Albuterol/Ipratropium 3 ML UPD VIAL UPD (22:50)
[2019-07-20] MEDS: methylPREDNISolone SUCC 125 MG VIAL IVP (22:50)
[2019-07-20] MEDS: Benzonatate 100 MG CAP 200 MG PO (22:51)
[2019-07-20] MEDS: guaiFENesin 600 MG TABCR PO (22:51)
[2019-07-20] MEDS: Nicotine 21 MG/24 HR PATCH TD (22:51)
[2019-07-20] MEDS: Normal Saline Flush 10 ML SYR IVP (22:52)
[2019-07-20] MEDS: Doxycycline Hyclate 100 MG CAP PO (23:55)
[2019-07-20] MEDS: Sertraline 25 MG TAB 50 MG PO (23:55)
[2019-07-21] VITALS (17 sets, daily range): BP systolic 136–194; BP diastolic 72–135; PULSE 63–93; RESP 1–22; TEMP 36.1–37.4; O2SAT 93–98
[2019-07-21] MEDS: Acetaminophen 325 MG TAB PO ×2 (00:48→09:43)
[2019-07-21] MEDS: Albuterol 2.5 MG/3 ML INH SOLN VIAL UPD (00:53)
[2019-07-21 01:06] LABS: Troponin I < 0.05 ng/Ml (<0.06)
[2019-07-21] MEDS: Benzonatate 200 MG CAP (04:41)
[2019-07-21] MEDS: Levothyroxine 50 MCG TAB PO (07:03)
[2019-07-21] MEDS: Albuterol/Ipratropium 3 ML UPD VIAL UPD ×2 (07:43→20:10)
[2019-07-21] MEDS: Nicotine 21 MG/24 HR PATCH TD (07:50)
[2019-07-21] MEDS: Carvedilol 6.25 MG TAB PO ×2 (07:51→19:35)
[2019-07-21] MEDS: guaiFENesin 600 MG TABCR PO ×2 (07:51→19:35)
[2019-07-21] MEDS: Furosemide 40 MG TAB PO ×2 (07:51→15:43)
[2019-07-21] MEDS: predniSONE 20 MG TAB 60 MG PO (07:51)
[2019-07-21] MEDS: Benzonatate 200 MG CAP PO ×3 (07:51→19:35)
[2019-07-21] MEDS: Doxycycline Hyclate 100 MG CAP PO ×2 (07:51→19:35)
[2019-07-21] MEDS: Losartan 50 MG TAB 100 MG PO (07:52)
--- NOTE | 2019-07-21 08:16 | PHARADMIT ---
Admission Pharmacy Clinical Review ACUTE KIDNEY INJURY Code Status Full Code Current Weight Wgt- 182.8 kg Renally Cleared and Narrow Therapeutic Index Meds CrCl~47 mL/min Meds-OK QTc Value / Action Taken QTc-432 BP Control, Fever BP- 191/90 Tmax- 36.6C Electrolytes reviewed Na- 141 K+4.0 DVT Prophylaxis Lovenox 40mg Opiate Usage / Scheduled Bowel Regimen Ordered Tyl#3 for cough, yes Plt/SCr for Heparin / Enoxaparin Plts-227 SCr-2.2 INR for Warfarin NA H/H stable, WBC/Bands H&H-13.7/42.0 WBC--8.32 Antibiotic appropriateness Doxycycline, Cultures and Sensitivities none Surgical ABX d/c within 24 hr NA DM control / Insulin Dosing BG-102 Heart Failure (Check EF%) (ALISON's, B-Block, Diuretics) Coreg, Lasix, Losartan IV to PO Switch No Home Meds Reviewed Yes Home Meds Not Ordered Ordered Comments
[2019-07-21 08:24] LABS: Anion Gap 7.6 mmol/L (3-11); BUN 26 mg/dL (7-18); CO2 23.4 mmol/L (21.0-32.0); CREATININE 2.11 mg/dL (0.70-1.30); Calcium 8.7 mg/dL (8.5-10.1); Chloride 109 mmol/L (98-107); Estimated GFR 34.45 (mL/min/1.73m2); Glucose 141 mg/dL (74-106); Magnesium 1.9 mg/dL (1.8-2.4); Potassium 4.5 mmol/L (3.5-5.1); Sodium 140 mmol/L (136-145); TSH 1.78 uIU/mL (0.36-3.74)
[2019-07-21 08:41] LABS: Calculated LDL 232 mg/dL; Cholesterol 293 mg/dL (<200); HDL Cholesterol 43 mg/dL (40-60); Triglyceride 90 mg/dL (<150)
--- NOTE | 2019-07-21 09:08 | DI.US_ITS ---
EXAM: US RENAL CLINICAL HISTORY: CKD, HTN TECHNIQUE: Mackay scale, color and spectral Doppler were used. COMPARISON: US renal from 01/13/2019 FINDINGS: Renal size in cm: Right: 11.4 left: 11.0 Echogenicity: Normal Hydronephrosis: No Cyst or mass: No Nephrolithiasis: No Other findings: None Bladder:Normal. No bladder wall thickening. Both ureteral jets were visualized. Prevoid vol:71 cc Postvoid vol:0 cc IMPRESSION: Unremarkable renal ultrasound.
[2019-07-21 09:21] LABS: Hemoglobin A1C 5.1 % (4.5-6.2)
[2019-07-21] MEDS: amLODIPine 5 MG TAB PO ×2 (11:52→16:59)
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
--- NOTE | 2019-07-21 15:41 | INITIAL_ITS ---
- If Service Date Differs Date of service: 07/21/19 Time of Service: 15:41 Care Management Initial Assess REASON FOR HOSPITALIZATION:: FRANCY PAST MEDICAL HISTORY/PAST SURGICAL HISTORY:: Medical History. Anxiety disorder (Acute). Chronic kidney disease (Acute). Depression (Chronic). Essential hypertension, benign (Acute). Hyperlipidemia (Acute). Hypothyroidism (acquired) (Acute). Obstructive sleep apnea (Chronic). PTSD (post-traumatic stress disorder) (Acute) PREVIOUS FUNCTIONAL STATUS/SOCIAL/FAMILY SUPPORTS:: Trevor lives in [facility]. He moved to this area two years ago from [place], so most of his family live in [place] and [place]. He does identify that he has many friends in the area, including people from his gnosticist, [facility] [email or web address]. Trevor is independent with his ADL's. He recently obtained his license, but he doesn't have a car currently, so he uses [employer] and taxi's to get around. CURRENT FUNCTIONAL STATUS:: Trevor was sitting up in his chair when CM met with him. He reported that per provider, his blood pressure will be monitored overnight, and may be able to go home tomorrow. He stated that he is interested in learning about services he may qualify for in the community. He reported that he does see a counselor at [facility]. CM will continue to follow. ADVANCE DIRECTIVES:: None on file Has patient been provided with information about the portal?: No Did the patient sign up for the portal?: No CODE STATUS:: Full Code INSURANCE COVERAGE / FINANCIAL ISSUES:: SASHA CURRENT HOME/COMMUNITY SERVICES/EQUIPMENT:: Trevor currently sees a counselor at [facility]. PRIMARY CARE PHYSICIAN:: Michelle Park POTENTIAL DISCHARGE NEEDS:: Evaluation for further needs, follow up appointments PATIENT/FAMILY EDUCATION NEEDS:: Review discharge instructions, discussion of self care need including Ask Me Three ANTICIPATED BARRIERS TO DISCHARGE:: None identified at this time. TRANSPORTATION:: Anticipate that a friend will drive him home via private vehicle. PLAN:: Anticipate Trevor will return home with no additional services when medically cleared. He will follow up with his PCP, as recommended. His friend will drive him home via private vehicle. CM will follow and support discharge planning.
--- NOTE | 2019-07-21 15:54 | W.PM.PROGNOT ---
Date of Service Date of service: 07/21/19 Time of Service: 15:55 Assessment and Plan Assessment and plan (1) Bronchitis, acute, with bronchospasm: Status: Acute Assessment and plan: Improved - will continue steroids, but decrease the dose of prednisone to 40 mg daily, nebs, doxycycline. (2) Essential hypertension, benign: Status: Acute Assessment and plan: Uncontrolled, causing proteinuria. Losartan increased overnight, and coreg initiated at 6.25 mg PO BID. Amlodipine started - increase to 10 mg Po daily. Appears fluid overloaded - transition lasix to IV. Monitor I/O's, daily weights. Keep on tele for prn IV lopressor. Decreasing steroids should help. Agree that once the patient starts to treat his sleep apnea, that should help also. (3) Chronic kidney disease: Status: Acute Assessment and plan: With proteinuria. Avoidance of NSAIDs. BP control crucial. On losartan 100 mg as of today. Monitor cr with diuresis and titration of BP meds. Qualifiers: Chronic kidney disease stage: stage 3 (moderate) Qualified Code(s): N18.3 - Chronic kidney disease, stage 3 (moderate) (4) Hypothyroidism (acquired): Status: Acute Assessment and plan: TSH at goal. Continue synthroid. (5) Hyperlipidemia: Status: Acute Assessment and plan: Continue atorvastatin Qualifiers: Hyperlipidemia type: unspecified Qualified Code(s): E78.5 - Hyperlipidemia, unspecified (6) Obstructive sleep apnea: Status: Chronic Assessment and plan: Patient will follow-up with the sleep lab for a titration study (7) PTSD (post-traumatic stress disorder): Status: Acute Assessment and plan: Continue Seroquel and sertraline. Follow-up with [facility] (8) Pulmonary nodules/lesions, multiple: Status: Acute Assessment and plan: Patient told re need to repeat CT scan of his chest in 3 to 6 months. Pulmonology referral sent. (9) DVT prophylaxis: Status: Acute Assessment and plan: lovenox (10) Discharge planning issues: Status: Acute Assessment and plan: full code Subjective Subjective Interval history since last seen: Mr Quiroz states he is feeling a little bit better. Breathing is better, and no wheezing since nebulizer treatment this morning. The chest and abdominal pain happen only when he coughs, and cough has been better. Denies n/v/dizziness. SBP's have been consistently above 180 - about to receive 5 mg of IV lopressor. Exam Narrative Exam Narrative: Genera: very pleasant middle-aged obese male, A&Ox3, sitting up in bed HEENT: EOMI, MMM, poor dentition Heart: RRR, no m/r/g Lungs: coarse breath sounds B, but no wheezing GI: abdomen is soft, tender in epigastrium Extremities: 1+ BLE edema, no c/c. Objective Objective Clinical Data: Abnormal lab results 07/20/19 07/20/19 07/20/19 Range/Units 16:45 16:45 19:14 MCH 26.4 L (27.0-33.0) pg RDW 15.0 H (11.8-14.1) % Chloride 108 H (98-107) mmol/L BUN 27 H (7-18) mg/dL Creatinine 2.20 H (0.70-1.30) mg/dL Glucose (74-106) mg/dL Calcium 8.4 L (8.5-10.1) mg/dL Albumin 2.1 L (3.4-5.0) g/dL Urine Protein >=300 H (Negative) mg/dL Urine Blood Moderate H (Negative) 07/21/19 Range/Units 06:59 MCH (27.0-33.0) pg RDW (11.8-14.1) % Chloride 109 H (98-107) mmol/L BUN 26 H (7-18) mg/dL Creatinine 2.11 H (0.70-1.30) mg/dL Glucose 141 H (74-106) mg/dL Calcium (8.5-10.1) mg/dL Albumin (3.4-5.0) g/dL Urine Protein (Negative) mg/dL Urine Blood (Negative) Vital Signs Temperature 36.6 C 07/21/19 11:30 Temperature Source Tympanic 07/21/19 11:30 Pulse 75 07/21/19 11:30 Pulse Rhythm Regular 07/21/19 13:14 Respiratory Rate 22 07/21/19 11:30 Respiratory Effort Non-Labored 07/21/19 13:14 Respiratory Depth Normal 07/21/19 13:14 Respiratory Pattern Normal 07/21/19 13:14 Blood Pressure 164/94 H 07/21/19 14:18 Blood Pressure Position Supine 07/20/19 16:31 Pulse Oximetry 95 07/21/19 11:30 Oxygen Delivery Method Room Air 07/21/19 11:30 Oxygen Flow Rate 0 07/21/19 11:30 Pain Level 3 07/21/19 11:30 Comment 07/21/19 13:00 Intake & Output 07/20/19 07/21/19 07/21/19 23:59 11:59 23:59 Intake Total 640 / 880 240 / 880 Output Total 400 / 400 300 / 1460 1160 / 1460 Balance -400 / -400 340 / -580 -920 / -580 Weight 182.798 kg Intake: Oral 640 / 880 240 / 880 Output: Urine 400 / 400 300 / 1460 1160 / 1460 Other: Urine Color Yellow Pale Urine Appearance Clear Clear Urine Odor None Comment VOID X 1 Voiding Methods Urinal Laboratory Results WBC 8.32 k/cumm (4.4-10.8) 07/20/19 16:45 RBC 5.18 m/cumm (4.50-6.00) 07/20/19 16:45 Hgb 13.7 g/dL (13.5-17.5) 07/20/19 16:45 Hct 42.0 % (40.0-50.0) 07/20/19 16:45 MCV 81.1 fL (80-95) 07/20/19 16:45 MCH 26.4 pg (27.0-33.0) L 07/20/19 16:45 MCHC 32.6 g/dL (32.0-36.0) 07/20/19 16:45 RDW 15.0 % (11.8-14.1) H 07/20/19 16:45 Plt Count 227 x1000/uL (130-400) 07/20/19 16:45 MPV 9.6 fL (8.0-11.0) 07/20/19 16:45 Immature Gran % 0.8 07/20/19 16:45 Neutrophils % 67.6 07/20/19 16:45 Lymphocytes % 19.0 07/20/19 16:45 Monocytes % 8.2 07/20/19 16:45 Eosinophils % 3.7 07/20/19 16:45 Basophils % 0.7 07/20/19 16:45 Absolute Neutrophils 5.62 k/cumm (1.2-6.7) 07/20/19 16:45 Absolute Lymphocytes 1.58 k/cumm (1.2-3.4) 07/20/19 16:45 Absolute Monocytes 0.68 k/cumm (0.11-0.7) 07/20/19 16:45 Absolute Eosinophils 0.31 k/cumm (0.0-0.7) 07/20/19 16:45 Absolute Basophils 0.06 k/cumm (0.0-0.2) 07/20/19 16:45 Sodium 140 mmol/L (136-145) 07/21/19 06:59 Potassium 4.5 mmol/L (3.5-5.1) 07/21/19 06:59 Chloride 109 mmol/L (98-107) H 07/21/19 06:59 Carbon Dioxide 23.4 mmol/L (21.0-32.0) 07/21/19 06:59 Anion Gap 7.6 mmol/L (3-11) 07/21/19 06:59 BUN 26 mg/dL (7-18) H 07/21/19 06:59 Creatinine 2.11 mg/dL (0.70-1.30) H 07/21/19 06:59 Estimated GFR/1.73 m2 34.45 (mL/min/1.73m2) 07/21/19 06:59 Glucose 141 mg/dL (74-106) H 07/21/19 06:59 Hemoglobin A1c 5.1 % (4.5-6.2) 07/21/19 06:59 Calcium 8.7 mg/dL (8.5-10.1) 07/21/19 06:59 Magnesium 1.9 mg/dL (1.8-2.4) 07/21/19 06:59 Total Bilirubin 0.2 mg/dL (0.2-1.0) 07/20/19 16:45 AST 24 U/L (15-37) 07/20/19 16:45 ALT 21 U/L (16-63) 07/20/19 16:45 Alkaline Phosphatase 104 U/L (46-116) 07/20/19 16:45 Troponin I < 0.05 ng/Ml (<0.06) 07/21/19 00:20 NT-Pro-B Natriuret Pep 540 pg/mL (<300) 07/20/19 16:45 Total Protein 6.5 g/dL (6.4-8.2) 07/20/19 16:45 Albumin 2.1 g/dL (3.4-5.0) L 07/20/19 16:45 Triglycerides 90 mg/dL (<150) 07/21/19 06:59 Total Cholesterol 293 mg/dL (<200) 07/21/19 06:59 LDL Cholesterol, Calc 232 mg/dL 07/21/19 06:59 HDL Cholesterol 43 mg/dL (40-60) 07/21/19 06:59 Lipase 97 U/L (73-393) 07/20/19 16:45 TSH 1.78 uIU/mL (0.36-3.74) 07/21/19 06:59 Urine Color Yellow (Yellow) 07/20/19 19:14 Urine Clarity Clear (Clear) 07/20/19 19:14 Urine pH 5.5 (5-8) 07/20/19 19:14 Ur Specific [place] 1.025 (1.005-1.025) 07/20/19 19:14 Urine Protein >=300 mg/dL (Negative) H 07/20/19 19:14 Urine Ketones Negative mg/dL (Negative) 07/20/19 19:14 Urine Blood Moderate (Negative) H 07/20/19 19:14 Urine Nitrite Negative (Negative) 07/20/19 19:14 Urine Bilirubin Negative (Negative) 07/20/19 19:14 Urine Urobilinogen 0.2 EU/dL (Up TO 0.2) 07/20/19 19:14 Ur Leukocyte Esterase Negative (Negative) 07/20/19 19:14 Urine RBC Negative HPF (0-2) 07/20/19 19:14 Urine WBC 0-2 HPF (0-5) 07/20/19 19:14 Ur Epithelial Cells Negative HPF (Negative) 07/20/19 19:14 Urine Crystals Few amorphous HPF (Negative) 07/20/19 19:14 Urine Bacteria Negative HPF (Negative) 07/20/19 19:14 Urine Casts Negative LPF (Negative) 07/20/19 19:14 Urine Mucus Trace (Negative) 07/20/19 19:14 Urine Other Negative (Negative) 12/05/19 19:14 Ur Culture Indicated? No 07/20/19 19:14 Urine Glucose Negative mg/dL (Negative) 07/20/19 19:14 US renal: Unremarkable renal ultrasound. CT chest/abdomen/pelvis: 1. 4 centimeter length of narrowed bowel in the mid sigmoid colon. Barium enema or colonoscopy are recommended for further evaluation. Colonoscopy may also be considered 2. No acute pulmonary process. 3. Multiple pulmonary nodules. Follow-up CT is recommended in 3 months given the size of the largest pulmonary nodule.
[2019-07-21] MEDS: Metoprolol 5 MG/5 ML VIAL IVP (15:57)
[2019-07-21] MEDS: Normal Saline Flush 10 ML SYR IVP (16:11)
[2019-07-21] MEDS: Enoxaparin 40 MG/0.4 ML SYR SC (19:35)
--- NOTE | 2019-07-21 21:21 | W.SURGCON ---
Date of service: 07/21/19 Time of Service: 14:00 Assessment and Plan Assessment and plan (1) Abnormal CT of the abdomen: Status: Acute Assessment and plan: The findings of sigmoid narrowing on CT may represent peristalsis or less likely a stricture related to inflammation or mass. When he recovers from his acute illness, I asked him to follow up with me in the office to plan for a colonoscopy. He will need to have his evaluation for sleep apena and his scheduled nephrology appt (at [facility] on 08/21/19) before having the procedure. History of Present Illness Narrative: This patient was admitted yesterday with bronchitis and is being treated with steroids. He was coughing so violently that he developed RUQ pain. The pain is present if he coughs but not at rest. He had a CT abd/pelvis that showed no acute issues although there was noted to be narrowing of the sigmoid colon of uncertain etiology. I have reviewed the images and do not see an obvious mass or inflammation. This may be related to peristalsis. The patient had no abdominal pain before having a cough. No change in bowel habits. No blood in stool. No FH colon cancer or IBD No prior colonoscopy Review of Systems All systems reviewed & are unremarkable except as noted in HPI and below PFSH Medical History Anxiety disorder (Acute) Chronic kidney disease (Acute) Depression (Chronic) Essential hypertension, benign (Acute) Hyperlipidemia (Acute) Hypothyroidism (acquired) (Acute) Obstructive sleep apnea (Chronic) PTSD (post-traumatic stress disorder) (Acute) Social History Smoking/Tobacco Use Status: Current-Occasional Tobacco Type: cigarettes Smoking packs per day: 0.5 Smoking cigarettes per day: 10.0 Years smoked: 2 Smoking pack-years: 1.00 Alcohol Intake: former Drug use: Never Substance use type: does not use Do you feel safe at home: Yes Do you feel safe in your relationship?: Yes Exam GI Other: Patient in no acute distress, has oxygen on Abdomen obese. Tender to right of midline above umbilicus. No generalized abdominal tenderness No obvious mass or hernia Results Last Vital Signs Temp 99.3 F 07/21/19 16:13 Pulse 84 07/21/19 16:58 Resp 19 07/21/19 16:13 BP 160/90 H 07/21/19 18:00 Pulse Ox 98 07/21/19 16:13 Labs Result diagrams: 07/20/19 16:45 07/21/19 06:59 Labs: Laboratory Results - last 24 hr 07/21/19 07/21/19 07/21/19 00:20 06:59 06:59 Sodium 140 Potassium 4.5 Chloride 109 H Carbon Dioxide 23.4 Anion Gap 7.6 BUN 26 H Creatinine 2.11 H Estimated GFR/1.73 m2 34.45 Glucose 141 H Hemoglobin A1c 5.1 Calcium 8.7 Magnesium 1.9 Troponin I < 0.05 Triglycerides 90 Total Cholesterol 293 LDL Cholesterol, Calc 232 HDL Cholesterol 43 TSH 1.78
[2019-07-21] MEDS: Atorvastatin 20 MG TAB PO (22:16)
[2019-07-21] MEDS: Sertraline 25 MG TAB 50 MG PO (22:16)
[2019-07-21] MEDS: QUEtiapine 25 MG TAB 50 MG PO (22:16)
[2019-07-21] MEDS: QUEtiapine 300 MG TAB PO (22:16)
[2019-07-22 04:02] VITALS: BP 148/78; PULSE 79; RESP 19; TEMP 36.6; O2SAT 95
[2019-07-22] MEDS: Levothyroxine 50 MCG TAB PO (05:54)
[2019-07-22 06:57] LABS: Abs Immature Grans 0.06 k/cumm (0.0-0.09); Absolute Basophil Count 0.03 k/cumm (0.0-0.2); Absolute Eosinophil Count 0.09 k/cumm (0.0-0.7); Absolute Monocyte Count 0.94 k/cumm (0.11-0.7); Absolute Neutrophil Count 8.31 k/cumm (1.2-6.7); Basophils % 0.3; Eosinophils % 0.8; HCT 41.4 % (40.0-50.0); HGB 13.4 g/dL (13.5-17.5); Immature Grans % 0.5; Mean Corp. HGB Concentration 32.4 g/dL (32.0-36.0); Mean Corpuscular Hemoglobin 26.2 pg (27.0-33.0); Mean Platelet Volume 9.6 fL (8.0-11.0); Monocytes % 8.4; Platelet Count 260 x1000/uL (130-400); RBC 5.11 m/cumm (4.50-6.00); RBC Distribution Width 15.5 % (11.8-14.1); White Blood Cell Count 11.23 k/cumm (4.4-10.8)
[2019-07-22] MEDS: Acetaminophen 325 MG TAB PO (07:01)
[2019-07-22 07:06] VITALS: PULSE 66
[2019-07-22 07:16] LABS: Anion Gap 8.3 mmol/L (3-11); BUN 33 mg/dL (7-18); CO2 24.7 mmol/L (21.0-32.0); Calcium 8.3 mg/dL (8.5-10.1); Chloride 109 mmol/L (98-107); Estimated GFR 32.83 (mL/min/1.73m2); Glucose 100 mg/dL (74-106); Magnesium 1.8 mg/dL (1.8-2.4); Potassium 3.9 mmol/L (3.5-5.1); Sodium 142 mmol/L (136-145)
[2019-07-22] MEDS: Nicotine 21 MG/24 HR PATCH TD (09:00)
[2019-07-22] MEDS: Furosemide 40 MG/4 ML VIAL IVP (09:00)
[2019-07-22] MEDS: guaiFENesin 600 MG TABCR PO (09:01)
[2019-07-22] MEDS: Losartan 50 MG TAB 100 MG PO (09:01)
[2019-07-22] MEDS: amLODIPine 5 MG TAB 10 MG PO (09:01)
[2019-07-22] MEDS: predniSONE 20 MG TAB 40 MG PO (09:01)
[2019-07-22] MEDS: Doxycycline Hyclate 100 MG CAP PO (09:01)
[2019-07-22] MEDS: Benzonatate 200 MG CAP PO ×2 (09:01→15:24)
[2019-07-22] MEDS: Carvedilol 6.25 MG TAB PO (09:02)
[2019-07-22 09:09] VITALS: BP 145/83; PULSE 66; RESP 18; TEMP 36.3; O2SAT 95
[2019-07-22 10:50] VITALS: O2SAT 99
--- NOTE | 2019-07-22 14:29 | W.PM.PROGNOT ---
Date of Service Date of service: 07/22/19 Time of Service: 14:29 Assessment and Plan Assessment and plan (1) Essential hypertension, benign: Status: Acute Assessment and plan: Discharged home on increased dose of losartan 100 mg daily along with Norvasc 10 mg daily and carvedilol 6.25 mg p.o. twice daily along with Lasix 40 mg p.o. twice daily. (2) Bronchitis, acute, with bronchospasm: Status: Acute Assessment and plan: Discharged home on a tapered dose of Medrol along with doxycycline 100 mg p.o. twice daily for 5 more days. (3) Abnormal CT of the abdomen: Status: Acute Assessment and plan: 4 cm narrowing of the mid sigmoid colon needs a follow-up colonoscopy. Patient will follow-up with the surgeon to have this evaluated. (4) Pulmonary nodules/lesions, multiple: Status: Acute Assessment and plan: Follow-up CT scan of the chest in 3 months is recommended. Patient is aware of this finding and knows he needs to follow-up with his PCP regarding this. (5) Discharge planning issues: Status: Acute (6) Chronic kidney disease: Status: Acute Qualifiers: Chronic kidney disease stage: stage 3 (moderate) Qualified Code(s): N18.3 - Chronic kidney disease, stage 3 (moderate) Subjective Subjective Interval history since last seen: Patient is improving. BP is under much better control running 140's to 160's systolic. His cough is improving but nonproductive. He is still wheezing a bit. Oxygen saturation at rest on room air is 99% while awake. he has severe ASHKAN but has a follow up for titration CPAP/BIPAP study on and after that he will follow up with his supervising architect in [facility] in [place]. He will also follow up w/ Dr. Allen or Dr. Aviles for c-scope to evaluate the alleged 4 cm narrowing of his mid sigmoid colon. I think that he is ready for discharge. I will keep on a medrol dose pack steroid taper and treat his bronchitis w/ a few more days of doxycycline. He will go home on increased dose of losartan and I have added carvedilol and Dr. Whiting added norvasc. Exam Narrative Exam Narrative: Pleasant obese male in no acute distress. When I went into the room he was lying in the prone position sleeping. Upon awakening he is alert and oriented person place time circumstance. Lungs reveal diffuse scattered wheezes Heart is regular rate and rhythm. Abdomen is obese soft and nontender. Objective Objective Clinical Data: Abnormal lab results 07/22/19 07/22/19 Range/Units 06:42 06:42 WBC 11.23 H (4.4-10.8) k/cumm Hgb 13.4 L (13.5-17.5) g/dL MCH 26.2 L (27.0-33.0) pg RDW 15.5 H (11.8-14.1) % Absolute Neutrophils 8.31 H (1.2-6.7) k/cumm Absolute Monocytes 0.94 H (0.11-0.7) k/cumm Chloride 109 H (98-107) mmol/L BUN 33 H (7-18) mg/dL Creatinine 2.20 H (0.70-1.30) mg/dL Calcium 8.3 L (8.5-10.1) mg/dL Vital Signs Temperature 36.3 C L 07/22/19 09:09 Temperature Source Tympanic 07/22/19 09:09 Pulse 66 07/22/19 09:09 Pulse Rhythm Regular 07/22/19 09:26 Respiratory Rate 18 07/22/19 09:09 Respiratory Effort Non-Labored 07/22/19 09:26 Respiratory Depth Normal 07/22/19 09:26 Respiratory Pattern Normal 07/22/19 09:26 Blood Pressure 145/83 H 07/22/19 09:09 Blood Pressure Position Supine 07/20/19 16:31 Pulse Oximetry 99 07/22/19 10:50 Oxygen Delivery Method Room Air 07/22/19 10:50 Oxygen Flow Rate 0 07/22/19 10:50 Pain Level 0 07/22/19 04:02 Comment 07/21/19 16:13 Intake & Output 07/21/19 07/22/19 07/22/19 23:59 11:59 23:59 Intake Total 480 / 1120 Output Total 1920 / 2220 3353 / 3353 Balance -1440 / -1100 -3353 / -3353 Intake: Oral 480 / 1120 Output: Urine 1920 / 2220 3300 / 3300 Post Void Residual 53 / 53 Other: Urine Color Light [place] Yellow Urine Appearance Clear Clear Urine Odor None Normal Voiding Methods Urinal Urinal Laboratory Results WBC 11.23 k/cumm (4.4-10.8) H 07/22/19 06:42 RBC 5.11 m/cumm (4.50-6.00) 07/22/19 06:42 Hgb 13.4 g/dL (13.5-17.5) L 07/22/19 06:42 Hct 41.4 % (40.0-50.0) 07/22/19 06:42 MCV 81.0 fL (80-95) 07/22/19 06:42 MCH 26.2 pg (27.0-33.0) L 07/22/19 06:42 MCHC 32.4 g/dL (32.0-36.0) 07/22/19 06:42 RDW 15.5 % (11.8-14.1) H 07/22/19 06:42 Plt Count 260 x1000/uL (130-400) 07/22/19 06:42 MPV 9.6 fL (8.0-11.0) 07/22/19 06:42 Immature Gran % 0.5 07/22/19 06:42 Neutrophils % 74.0 07/22/19 06:42 Lymphocytes % 16.0 07/22/19 06:42 Monocytes % 8.4 07/22/19 06:42 Eosinophils % 0.8 07/22/19 06:42 Basophils % 0.3 07/22/19 06:42 Absolute Neutrophils 8.31 k/cumm (1.2-6.7) H 07/22/19 06:42 Absolute Lymphocytes 1.80 k/cumm (1.2-3.4) 07/22/19 06:42 Absolute Monocytes 0.94 k/cumm (0.11-0.7) H 07/22/19 06:42 Absolute Eosinophils 0.09 k/cumm (0.0-0.7) 07/22/19 06:42 Absolute Basophils 0.03 k/cumm (0.0-0.2) 07/22/19 06:42 Sodium 142 mmol/L (136-145) 07/22/19 06:42 Potassium 3.9 mmol/L (3.5-5.1) 07/22/19 06:42 Chloride 109 mmol/L (98-107) H 07/22/19 06:42 Carbon Dioxide 24.7 mmol/L (21.0-32.0) 07/22/19 06:42 Anion Gap 8.3 mmol/L (3-11) 07/22/19 06:42 BUN 33 mg/dL (7-18) H 07/22/19 06:42 Creatinine 2.20 mg/dL (0.70-1.30) H 07/22/19 06:42 Estimated GFR/1.73 m2 32.83 (mL/min/1.73m2) 07/22/19 06:42 Glucose 100 mg/dL (74-106) 07/22/19 06:42 Hemoglobin A1c 5.1 % (4.5-6.2) 07/21/19 06:59 Calcium 8.3 mg/dL (8.5-10.1) L 07/22/19 06:42 Magnesium 1.8 mg/dL (1.8-2.4) 07/22/19 06:42 Total Bilirubin 0.2 mg/dL (0.2-1.0) 07/20/19 16:45 AST 24 U/L (15-37) 07/20/19 16:45 ALT 21 U/L (16-63) 07/20/19 16:45 Alkaline Phosphatase 104 U/L (46-116) 07/20/19 16:45 Troponin I < 0.05 ng/Ml (<0.06) 07/21/19 00:20 NT-Pro-B Natriuret Pep 540 pg/mL (<300) 07/20/19 16:45 Total Protein 6.5 g/dL (6.4-8.2) 07/20/19 16:45 Albumin 2.1 g/dL (3.4-5.0) L 07/20/19 16:45 Triglycerides 90 mg/dL (<150) 07/21/19 06:59 Total Cholesterol 293 mg/dL (<200) 07/21/19 06:59 LDL Cholesterol, Calc 232 mg/dL 07/21/19 06:59 HDL Cholesterol 43 mg/dL (40-60) 07/21/19 06:59 Lipase 97 U/L (73-393) 07/20/19 16:45 TSH 1.78 uIU/mL (0.36-3.74) 07/21/19 06:59 Urine Color Yellow (Yellow) 07/20/19 19:14 Urine Clarity Clear (Clear) 07/20/19 19:14 Urine pH 5.5 (5-8) 07/20/19 19:14 Ur Specific [place] 1.025 (1.005-1.025) 07/20/19 19:14 Urine Protein >=300 mg/dL (Negative) H 07/20/19 19:14 Urine Ketones Negative mg/dL (Negative) 07/20/19 19:14 Urine Blood Moderate (Negative) H 07/20/19 19:14 Urine Nitrite Negative (Negative) 07/20/19 19:14 Urine Bilirubin Negative (Negative) 07/20/19 19:14 Urine Urobilinogen 0.2 EU/dL (Up TO 0.2) 07/20/19 19:14 Ur Leukocyte Esterase Negative (Negative) 07/20/19 19:14 Urine RBC Negative HPF (0-2) 07/20/19 19:14 Urine WBC 0-2 HPF (0-5) 07/20/19 19:14 Ur Epithelial Cells Negative HPF (Negative) 07/20/19 19:14 Urine Crystals Few amorphous HPF (Negative) 07/20/19 19:14 Urine Bacteria Negative HPF (Negative) 07/20/19 19:14 Urine Casts Negative LPF (Negative) 07/20/19 19:14 Urine Mucus Trace (Negative) 07/20/19 19:14 Urine Other Negative (Negative) 07/20/19 19:14 Ur Culture Indicated? No 07/20/19 19:14 Urine Glucose Negative mg/dL (Negative) 07/20/19 19:14 Reviewed Pertinent PMH: Yes Objective Narrative Objective Narrative: Renal ultrasound was read as unremarkable. CT scan of his chest and abdomen shows a few bilateral pulmonary nodules for which a follow-up CT scan 3 months is recommended. 4 cm area of narrowing in the mid sigmoid colon needs a follow-up colonoscopy as an outpatient.
[2019-07-22 15:15] VITALS: BP 148/106; PULSE 75; RESP 18; TEMP 36.4; O2SAT 93
--- NOTE | 2019-07-22 15:17 | DSE_ITS ---
DS: Diagnosis Discharge Diagnosis (1) Essential hypertension, benign: Status: Acute (2) Bronchitis, acute, with bronchospasm: Status: Acute (3) Abnormal CT of the abdomen: Status: Acute (4) Pulmonary nodules/lesions, multiple: Status: Acute (5) Discharge planning issues: Status: Acute (6) Chronic kidney disease: Status: Acute Discharge Plan Disposition Patient Disposition: HOME Condition: Good Discharge Details Chief Complaint: Abd Prob Clinical Impression: FRANCY (acute kidney injury), Multiple pulmonary nodules, Bronchitis Reason For Visit: acute bronchitis w/ bronchospasm; uncontrolled HTN Admit Date/Time: 07/21/19 16:10 Admit Provider: Tomasz Man Attending Provider: Tomasz Man Primary Care Provider: Michelle Park ED Provider: Wes Carpenter Home Meds and New Rx's Prescriptions: New quetiapine [Seroquel] 300 mg Tablet 300 mg PO HS 30 Days Qty: 30 RF: 0 amlodipine 10 mg tablet 10 mg PO DAILY Qty: 30 RF: 0 carvedilol [Coreg] 6.25 mg Tablet 6.25 mg PO BID Qty: 60 RF: 0 doxycycline hyclate 100 mg Capsule 100 mg PO BID 5 Days Qty: 10 RF: 0 benzonatate 200 mg Capsule 200 mg PO TID Qty: 30 RF: 0 guaifenesin [Mucinex] 600 mg Tablet Extended Release 12hr 600 mg PO BID Qty: 20 RF: 0 losartan 100 mg tablet 100 mg PO DAILY Qty: 30 RF: 0 Continued acetaminophen [Tylenol Extra Strength] 500 mg Tablet 1,000 mg PO PRN PRNRF: 0 quetiapine [Seroquel] 300 mg Tablet 300 mg PO QHS RF: 0 quetiapine [Seroquel] 50 mg Tablet 50 mg PO QHS RF: 0 sertraline 25 mg Tablet 50 mg PO HS RF: 0 furosemide 40 mg Tablet 40 mg PO BID RF: 0 atorvastatin 20 mg Tablet 20 mg PO QHS RF: 0 levothyroxine 50 mcg Tablet 50 mcg PO DAILY RF: 0 Discontinued losartan 50 mg Tablet 50 mg PO DAILY RF: 0 Discharge Instructions Instructions: Acute Bronchitis (GEN), Chronic Hypertension (DC), Pulmonary Nodules (DC) Referrals: Bing Allen MD [ [facility] STAFF PHYSICIAN] - (call the office for follow up colonoscopy to evaluate abnormal narrowing of your sigmoid colon) Luana Talyor MD [ NON-[facility] STAFF PHYSICIAN] - (pulmonary nodules) Activity:: Activity as Tolerated Equipment/Supplies:: No Equipment Needed Diet:: Normal Diet Discharge Orders Discharge Orders: Discharge Order (Routine); Ordered 07/22/19 Ordered By: Tomasz Man DS: Data Vitals/I&O Vitals and I&O: Vital Signs Temperature 36.4 C L 07/22/19 15:15 Temperature Source Tympanic 07/22/19 15:15 Pulse 75 07/22/19 15:15 Pulse Rhythm Regular 07/22/19 09:26 Respiratory Rate 18 07/22/19 15:15 Respiratory Effort Non-Labored 07/22/19 09:26 Respiratory Depth Normal 07/22/19 09:26 Respiratory Pattern Normal 07/22/19 09:26 Blood Pressure 148/106 H 07/22/19 15:15 Blood Pressure Position Supine 07/20/19 16:31 Pulse Oximetry 93 L 07/22/19 15:15 Oxygen Delivery Method Room Air 07/22/19 15:15 Oxygen Flow Rate 0 07/22/19 15:15 Pain Level 0 07/22/19 04:02 Comment 07/21/19 16:13 Intake & Output 07/21/19 07/22/19 07/22/19 23:59 11:59 23:59 Intake Total 480 / 1120 Output Total 1920 / 2220 3353 / 3353 Balance -1440 / -1100 -3353 / -3353 Weight 176.504 kg Intake: Oral 480 / 1120 Output: Urine 1920 / 2220 3300 / 3300 Post Void Residual 53 / 53 Other: Urine Color Light [place] Yellow Urine Appearance Clear Clear Urine Odor None Normal Voiding Methods Urinal Urinal Data Completed and Pending Labs on day of discharge: Labs from last 24 hours 07/22/19 07/22/19 06:42 06:42 WBC 11.23 H RBC 5.11 Hgb 13.4 L Hct 41.4 MCV 81.0 MCH 26.2 L MCHC 32.4 RDW 15.5 H Plt Count 260 MPV 9.6 Immature Gran % 0.5 Neutrophils % 74.0 Lymphocytes % 16.0 Monocytes % 8.4 Eosinophils % 0.8 Basophils % 0.3 Absolute Neutrophils 8.31 H Absolute Lymphocytes 1.80 Absolute Monocytes 0.94 H Absolute Eosinophils 0.09 Absolute Basophils 0.03 Sodium 142 Potassium 3.9 Chloride 109 H Carbon Dioxide 24.7 Anion Gap 8.3 BUN 33 H Creatinine 2.20 H Estimated GFR/1.73 m2 32.83 Glucose 100 Calcium 8.3 L Magnesium 1.8 PFSH Medical History Anxiety disorder (Acute) Chronic kidney disease (Acute) Depression (Chronic) Essential hypertension, benign (Acute) Hyperlipidemia (Acute) Hypothyroidism (acquired) (Acute) Obstructive sleep apnea (Chronic) PTSD (post-traumatic stress disorder) (Acute) Social History Smoking/Tobacco Use Status: Current-Occasional Tobacco Type: cigarettes Smoking packs per day: 0.5 Smoking cigarettes per day: 10.0 Years smoked: 2 Smoking pack-years: 1.00 Alcohol Intake: former Drug use: Never Substance use type: does not use Do you feel safe at home: Yes Do you feel safe in your relationship?: Yes
[2019-07-22 15:34] VITALS: PULSE 68
--- NOTE | 2019-07-22 15:56 | CMDISCH_ITS ---
- If Service Date Differs Date of service: 07/22/19 Time of Service: 15:56 LACE Index Scoring Tool - Questions: Length of Stay (in days): 1 Acuity (Admit via E.D.?): Yes Comorbidities: Chronic Pulmonary Disease, Liver or Renal Disease E.D. Visits: 2 - Answers: Total Score: 11 Risk of Readmission: High Risk Care Management Discharge Reason for Hospitalization: FRANCY Discharge Plan: Trevor is discharged to the [facility] where he [facility]. Transportation is provided by a friend via private vehicle. Trevor will follow-up with Dr. Allen for a colonoscopy to evaluate abnormal narrowing of his sigmoid colon, with Dr. Gauthier for evaluation of pulmonary nodules, and with his plan of care as directed, including medication recommendations. Patient/Family Education Needs: Nursing will review discharge instructions with Trevor re medications and follow-up appointments. Trevor is able to verbalize reason for hospitalization and how to manage care at home.
== END 2019-07-22 15:49 | disposition home or self-care (01) | DRG 202 ==
LOC: ER 19:30 → MS 19:31
PROVIDERS: Internal Medicine; Admitting Provider Internal Medicine; Emergency Provider Student in an Organized Health Care Education/Training Program; PCP Nurse Practitioner Family; Visit Provider Internal Medicine
DX: J20.9 Acute bronchitis, unspecified (principal); N17.9 Acute kidney failure, unspecified; J45.901 Unspecified asthma with (acute) exacerbation; I10 Essential (primary) hypertension; R93.3 Abnormal findings on diagnostic imaging of other parts of digestive tract; T50.1X6A Underdosing of loop [high-ceiling] diuretics, initial encounter; N18.3 Chronic kidney disease, stage 3 (moderate); R91.8 Other nonspecific abnormal finding of lung field; K62.4 Stenosis of anus and rectum; G47.33 Obstructive sleep apnea (adult) (pediatric); E03.9 Hypothyroidism, unspecified; E78.5 Hyperlipidemia, unspecified; F43.10 Post-traumatic stress disorder, unspecified; F17.210 Nicotine dependence, cigarettes, uncomplicated
CPT/HCPCS: 36415; 71250; 76770; 80048; 80053; 80061; 83690; 93005; 94640; 96374; 96375; 96376; 99220; 99225; 99231; 99252; 99285; J1650; 74176; 81003; 81015; 83036; 83735; 83880; 84443; 84484; 85025; 93010; 99232; G0378; J1885; J1940; J2405; J2930; J3490; J7512; J7613; J7620

== ENCOUNTER 2019-08-22 16:07 | Outpatient (REF) | payer MEDICAID, SELFPAY ==
[2019-08-22 18:58] LABS: BUN 26 mg/dL (7-18); Calcium 8.5 mg/dL (8.5-10.1); Chloride 108 mmol/L (98-107); Estimated GFR 31.04 (mL/min/1.73m2); Glucose 74 mg/dL (74-106); Potassium 4.5 mmol/L (3.5-5.1); Sodium 142 mmol/L (136-145)
== END 2019-08-22 16:27 ==
LOC: NCHCN 16:07
PROVIDERS: PCP Nurse Practitioner Family; Visit Provider Nurse Practitioner Family
DX: N18.3 Chronic kidney disease, stage 3 (moderate) (principal); E87.6 Hypokalemia
CPT/HCPCS: 80048

== ENCOUNTER 2020-01-19 08:44 | Outpatient (CLI) | payer MEDICAID, SELFPAY ==
--- NOTE | 2020-01-19 09:06 | DI.RAD_ITS ---
EXAM: XR KNEE RT 3V AP,LAT,LYNDSEY CLINICAL HISTORY: KNEE PAIN RT, M25.561 TECHNIQUE: COMPARISON: No exams were available for comparison FINDINGS: Three views were obtained. There is severe narrowing of medial tibiofemoral cartilaginous joint spac e. There is mild varus angulation of knee. Moderate marginal osteophyte formation noted at all 3 nan ints of the knee. Mild subchondral sclerosis medial femoral condyle and medial tibial plateau noted. IMPRESSION: Severe DJD medial tibiofemoral joint
== END 2020-01-19 09:04 ==
PROVIDERS: PCP Nurse Practitioner Family; Visit Provider Nurse Practitioner Family
DX: M25.561 Pain in right knee (principal); M17.11 Unilateral primary osteoarthritis, right knee; M25.761 Osteophyte, right knee
CPT/HCPCS: 73562

== ENCOUNTER 2020-02-29 02:32 | Outpatient (CLI) | payer MEDICAID, SELFPAY ==
[2020-02-29 14:03] LABS: Bilirubin Negative (Negative); Blood Moderate (Negative); Clarity Clear (Clear); Glucose 100 mg/dL (Negative); Ketones Negative (Negative); Leukocyte Esterase Negative (Negative); Nitrite Negative (Negative); Urobilinogen 0.2 EU/dL (Up TO 0.2); pH 6.5 (5-8)
[2020-02-29 14:07] LABS: COMMENT (LAB VIEW ONLY) 101.64 mg/dL
[2020-02-29 14:07] LABS: HGB 12.6 g/dL (13.5-17.5); Mean Corp. HGB Concentration 33.2 g/dL (32.0-36.0); Mean Corpuscular Volume 81.5 fL (80-95); Mean Platelet Volume 9.3 fL (8.0-11.0); Platelet Count 290 x1000/uL (130-400); RBC 4.66 m/cumm (4.50-6.00); RBC Distribution Width 15.3 % (11.8-14.1); White Blood Cell Count 8.59 k/cumm (4.4-10.8)
[2020-02-29 14:08] LABS: Microalb ug/mg Crea 210.6 ug/mg Cr
[2020-02-29 14:17] LABS: Epithelial Cells Rare HPF (Negative)
[2020-02-29 14:18] LABS: Bacteria Rare HPF (Negative); Crystals Negative HPF (Negative); Mucus Trace (Negative)
[2020-02-29 14:19] LABS: C & S Indicated? Yes; Casts 0-2 Coarse Granular LPF (Negative)
[2020-02-29 15:14] LABS: Albumin 2.1 g/dL (3.4-5.0); Anion Gap 12.5 mmol/L (3-11); BUN 33 mg/dL (7-18); CO2 20.5 mmol/L (21.0-32.0); Chloride 109 mmol/L (98-107); Estimated GFR 15.45 (mL/min/1.73m2); PHOSPHORUS 4.7 mg/dL (2.6-4.7); Potassium 3.5 mmol/L (3.5-5.1); Sodium 142 mmol/L (136-145); Uric Acid 6.2 mg/dL (3.5-7.2)
[2020-02-29 16:42] LABS: CREATININE 4.21 mg/dL (0.70-1.30)
== END 2020-02-29 02:52 ==
PROVIDERS: PCP Nurse Practitioner Family; Visit Provider Internal Medicine
DX: N18.3 Chronic kidney disease, stage 3 (moderate) (principal)
CPT/HCPCS: 36415; 80051; 84520; 85027; 81003; 81015; 82040; 82043; 82310; 82565; 82570; 84100; 84550; 87086

== ENCOUNTER 2020-06-18 03:49 | Outpatient (CLI) | payer MEDICAID, SELFPAY ==
[2020-06-18 13:50] LABS: HCT 38.6 % (40.0-50.0); HGB 12.4 g/dL (13.5-17.5); MCH 27.2 pg (27.0-33.0); MCHC 32.1 % (32.0-36.0); MCV 84.6 fL (80-95); MPV 9.6 fL (8.0-11.0); Platelet Count 251 10^3/uL (130-400); RBC 4.56 10^6/uL (4.36-5.78); RDW 14.5 % (11.8-14.1); RDW-SD 44.8 fL; WBC 8.95 10^3/uL (4.4-10.8)
[2020-06-18 14:55] LABS: Iron 49 ug/dL (65-175); Total Iron Binding Capacity 253 ug/dL (250-450); Transferrin Sat 19 % (20-55)
[2020-06-18 15:24] LABS: Albumin 2.3 g/dL (3.4-5.0); Anion Gap 11.9 mmol/L (3-11); BUN 63 mg/dL (7-18); CO2 21.1 mmol/L (21.0-32.0); Calcium 8.3 mg/dL (8.5-10.1); Chloride 107 mmol/L (98-107); Estimated GFR 11.16 (mL/min/1.73m2); PHOSPHORUS 5.6 mg/dL (2.6-4.7); Potassium 4.1 mmol/L (3.5-5.1); Sodium 140 mmol/L (136-145)
[2020-06-18 15:54] LABS: CREATININE 5.58 mg/dL (0.70-1.30)
[2020-06-18 19:32] LABS: Ferritin 133 ng/mL (26-388)
[2020-06-21 12:56] LABS: Parathyroid Hormone,Intact 222 pg/mL (15-65)
== END 2020-06-18 04:09 ==
PROVIDERS: PCP Nurse Practitioner Family
DX: N18.5 Chronic kidney disease, stage 5 (principal)
CPT/HCPCS: 36415; 80051; 84520; 85027; 82040; 82310; 82565; 82728; 83540; 83550; 83970; 84100

== ENCOUNTER 2021-01-13 01:41 | Inpatient (IN) | payer MEDICAID, SELFPAY ==
[2021-01-13] VITALS (10 sets, daily range): BP systolic 132–171; BP diastolic 62–100; PULSE 58–65; RESP 18–30; TEMP 36.4–36.9; O2SAT 95–99
--- NOTE | 2021-01-13 01:30 | RT.EKG_ITS ---
APPROVED REPORT Exam: Resting ECG Reason for Exam: chest pain Patient Location: E HR:66 bpm ECG Measurements Heart Rate 66 AXIS IN 184 P 33 QRSd 107 QRS 33 QT 452 T 62 QTc 472 Conclusion Sinus rhythm...normal P axis, V-rate 60- 99 ST elev, probable normal early repol pattern...ST elevation, age<55 ED Disagree - no significant ST changes, more IN depression diffusely. Otherwise no significant lo ges.
--- NOTE | 2021-01-13 01:42 | ED.GENADUL_ITS ---
Discharge Plan Disposition Patient Disposition: [facility] INPATIENT Condition: Poor Discharge Details Clinical Impression: Acute thoracic back pain, Chest pain, Acute kidney injury superimposed on chronic kidney disease, Anemia Primary Care Provider: Michelle Park ED Provider: Favian Churchill [place] Meds and New Rx's Prescriptions: No Action albuterol sulfate [ProAir HFA] 90 mcg/actuation HFA aerosol inhaler 2 puff IH Q6H PRNRF: 0 polyethylene glycol 3350 [Miralax] 17 gram/dose powder 17 gm PO DAILY RF: 0 polyethylene glycol 3350 [Miralax] 17 gram/dose powder 17 gm PO DAILY RF: 0 acetaminophen [Tylenol Extra Strength] 500 mg Tablet 1,000 mg PO PRN PRNRF: 0 quetiapine [Seroquel] 300 mg Tablet 300 mg PO QHS RF: 0 quetiapine [Seroquel] 50 mg Tablet 50 mg PO QHS RF: 0 sertraline 25 mg Tablet 50 mg PO HS RF: 0 amlodipine 10 mg tablet 10 mg PO DAILY Qty: 30 RF: 0 carvedilol [Coreg] 6.25 mg Tablet 6.25 mg PO BID Qty: 60 RF: 0 benzonatate 200 mg Capsule 200 mg PO TID Qty: 30 RF: 0 guaifenesin [Mucinex] 600 mg Tablet Extended Release 12hr 600 mg PO BID Qty: 20 RF: 0 losartan 100 mg tablet 100 mg PO DAILY Qty: 30 RF: 0 furosemide 40 mg Tablet 40 mg PO BID RF: 0 atorvastatin 20 mg Tablet 20 mg PO QHS RF: 0 levothyroxine 50 mcg Tablet 50 mcg PO DAILY RF: 0 Medical Decision Making Patient presenting with sudden onset of sharp back pain that radiates through the chest that is pleuritic in nature associated with shortness of breath. He was well prior to this. He has no fever. Normal O2 saturations. He is not tachycardic but he is beta blocked. IV established. EKG obtained. Laboratory studies sent. CTA of chest ordered. Toradol given for pain. EKG shows sinus rhythm with no ST elevation per my interpretation. If anything more diffuse MN depression. Patient significantly better after dose of Toradol. Laboratory studies significant for hemoglobin in the 9 with most recent hemoglobin in the 12. White count is normal. Kidney function has significantly worsened with a creatinine of 9.9, previous baseline in the 4-5 range. Electrolytes are normal. Liver function good. Troponin negative. Because of the significantly worsening renal function CTA of the chest discontinued. Noncontrast CT of chest abdomen pelvis was obtained and there is no gross abnormality seen. Patient does not feel short of breath now the pain is better. Saturations are normal on room air. Repeat EKG unchanged from previous at this point not clear what is going on and what caused his pain. Doubt ACS but will continue to trend troponins. Have added D-dimer to labs and hopefully will be negative. Doubt pain from aortic dissection would have responded so well to Toradol. His sed rate and C-reactive protein is slightly elevated but would not jump to pericarditis at this point. No pericardial effusion noted on CT. Case discussed at length with hospitalist. Will admit the patient for further evaluation and management. Patient's pain has essentially resolved and he is remained hemodynamically stable here Differential Diagnosis Differential Diagnosis: PE, dissection, ACS, pericarditis Medical Records Medical records reviewed: Yes I reviewed the patient's medical records. Lab Data Lab results reviewed: Yes I reviewed the patient's lab results. ECG Data Attestation: I personally reviewed and interpreted this ECG (s) as follows: Prior ECG tracings: available for review Interpretation: See EKG HPI General Mode of arrival: EMS . Date/Time Provider Initiated Documentation: 01/13/21 01:42 . Limitations to Documentation: no limitations . Information obtained by: patient, EMS, RN notes reviewed and old records reviewed . HPI Narrative: Patient presents to ED by ambulance with sudden onset of back pain that radiates to the chest. It is sharp and pleuritic in nature. He feels extremely short of breath because of the pain. He has never had this previously. He was fine earlier this evening. He did receive aspirin and nitro by EMS with no change in his symptoms. He denies history of blood clots. He denies leg pain or leg swelling. He denies fever or cough. He denies any abdominal or low back pain. Related Data Home Medications Medication Instructions Recorded Confirmed atorvastatin 20 mg PO QHS 01/11/19 01/13/21 furosemide 40 mg PO BID 01/11/19 01/13/21 levothyroxine 50 mcg PO DAILY 01/11/19 01/13/21 acetaminophen [Tylenol Extra 1,000 mg PO PRN PRN 07/20/19 01/13/21 Strength] quetiapine [Seroquel] 50 mg PO QHS 07/20/19 01/13/21 quetiapine [Seroquel] 300 mg PO QHS 07/20/19 01/13/21 sertraline 50 mg PO HS 07/20/19 01/13/21 amlodipine 10 mg PO DAILY #30 tab 07/22/19 01/13/21 benzonatate 200 mg PO TID #30 cap 07/22/19 01/13/21 carvedilol [Coreg] 6.25 mg PO BID #60 tab 07/22/19 01/13/21 guaifenesin [Mucinex] 600 mg PO BID #20 tab 07/22/19 01/13/21 losartan 100 mg PO DAILY #30 tab 07/22/19 01/13/21 albuterol sulfate 90 mcg/actuation 2 puff IH Q6H PRN 08/24/19 01/13/21 aerosol inhaler polyethylene glycol 3350 17 17 gm PO DAILY 08/24/19 01/13/21 gram/dose oral powder polyethylene glycol 3350 17 17 gm PO DAILY 08/29/19 01/13/21 gram/dose oral powder Previous Rx's Medication Instructions Recorded amlodipine 10 mg PO DAILY #30 tab 07/22/19 benzonatate 200 mg PO TID #30 cap 07/22/19 carvedilol [Coreg] 6.25 mg PO BID #60 tab 07/22/19 guaifenesin [Mucinex] 600 mg PO BID #20 tab 07/22/19 losartan 100 mg PO DAILY #30 tab 07/22/19 Allergies Allergy/AdvReac Type Severity Reaction Status Date / Time yellowjackets Allergy Uncoded 07/20/19 16:40 General YASMINE: 3 Review of Systems Narrative: 05/29 Review of Systems completed and is negative except as stated above in HPI (Systems reviewed: Const, Eyes, ENT, Resp, CV, GI, , MSK, Skin, Neuro) FOR[facility]LY [facility] Medical History Abnormal CT of the abdomen Anxiety disorder Bronchitis, acute, with bronchospasm Chronic kidney disease Depression Discharge planning issues DVT prophylaxis Enlarged prostate Essential hypertension, benign Hyperlipidemia Hypothyroidism (acquired) Obstructive sleep apnea PTSD (post-traumatic stress disorder) Pulmonary nodules/lesions, multiple Shortness of breath Sleep disturbance Social History Smoking/Tobacco Use Status: Current-Occasional Tobacco Type: cigarettes Smoking packs per day: 0.5 Smoking cigarettes per day: 10.0 Years smoked: 2 Smoking pack-years: 1.00 Smoking risk assessment performed?: Yes Alcohol Intake: former Drug use: Never Substance use type: does not use Do you feel safe at home: Yes Do you feel safe in your relationship?: Yes Exam Narrative Exam Narrative: Const: Morbidly obese male appears uncomfortable. HEENT: NC/AT. Normal facial exam. Eyes: Normal conjunctiva and sclera. Neck: Supple. Trachea midline. Lungs: Tachypneic but not in distress. Lungs are clear. Cor: RRR without murmur/gallop. Good radial pulses. GI: Soft. NT/ND. No guarding or rebound. Neuro: A+O x 3. Normal speech, mentation, gait. Cranial nerves II - XII grossly intact. No gross motor or sensory deficit. Ext: No C/C/E. No calf tenderness Skin: Warm and dry without rash.
[2021-01-13 02:14] LABS: Abs Immature Grans 0.09 10^3/uL (0.0-0.06); Absolute Basophil Count 0.07 10^3/uL (0.0-0.2); Absolute Eosinophil Count 0.28 10^3/uL (0.0-0.7); Absolute Lymphocyte Count 0.74 10^3/uL (1.2-3.4); Absolute Monocyte Count 0.85 10^3/uL (0.1-0.8); Absolute Neutrophil Count 9.58 10^3/uL (1.2-6.7); Basophils % 0.6; Eosinophils % 2.4; HCT 29.3 % (40.0-50.0); HGB 9.3 g/dL (13.5-17.5); Immature Grans % 0.8; Lymphocytes % 6.4; MCH 27.9 pg (27.0-33.0); MCHC 31.7 % (32.0-36.0); MPV 10.7 fL (8.0-11.0); Monocytes % 7.3; Neutrophils % 82.5; Nucleated RBC 0 %; Platelet Count 194 10^3/uL (130-400); RBC 3.33 10^6/uL (4.36-5.78); RDW 14.4 % (11.8-14.1); RDW-SD 46.8 fL; WBC 11.61 10^3/uL (4.4-10.8)
[2021-01-13] MEDS: Ketorolac 30 MG/ML VIAL IVP (02:21)
[2021-01-13 02:47] LABS: ESR 36 mm/hr (0-15)
--- NOTE | 2021-01-13 03:00 | DI.CT_ITS ---
Exam(s) CT CHEST/ABD/PEL WO EXAM: CT CHEST/ABD/PEL WO CLINICAL HISTORY: back/chest pain; FRANCY. TECHNIQUE: Imaging Protocol: Axial computed tomography images with coronal and sagittal reformatted images were created and reviewed COMPARISON: CT CT CHEST/ABD/PEL WO from 07/20/2019 FINDINGS: The examination is limited due to patient motion artifact. CHEST: Thyroid: Unremarkable as visualized. Tracheobronchial tree: Patent where visualized. Mediastinum and Kathrin: No dominant adenopathy or fluid collection. Pulmonary parenchyma: Minimal basilar scarring or atelectasis. No consolidation or dominant measurab le mass. No architectural distortion. Stable pulmonary nodules are present. No new pulmonary nodule s are seen. Pleura: No effusion or pneumothorax. Lymph nodes: Within normal limits. Aorta: Thoracic portion non-dilated. Heart: Not enlarged. No coronary artery calcifications. No pericardial effusion. Bones: No acute abnormalities. ABDOMEN: Liver: Normal density. No measurable mass. Gallbladder and biliary tract: No radiodense calculus or dilation. Pancreas: Normal density, no abnormal calcifications or inflammatory process. Spleen: Normal. Kidneys: Normal size, contour and axis. No radiodense stones or obstructive uropathy. No masses seen. Adrenal glands: No masses seen. Aorta: Abdominal portion non-dilated. Mild atherosclerosis. Lymph nodes: Within normal limits. PELVIS: Bladder: Symmetric distention, no gross wall thickening. Bowel: Evaluation of the bowel is limited due to patient motion. No obstruction or bowel wall thicke iman. No evidence of appendicitis. Peritoneal cavity: No ascites, collection or mesenteric inflammatory response. Bones: No acute abnormality. Reproductive organs: Within normal limits. IMPRESSION: 1. No acute abdominal or pelvic process. 2. No acute pulmonary process. RADIATION DOSE DELIVERED: 2,428.56mGy.cm Total DLP 2,428.56mGy.cm Total DLP DATA REPOSITORY: All CT scans at this facility are submitted to the National Radiology Data Registry (NRDR) Dose Index Registry (DIR) with the [employer] ([employer]). RADIATION OPTIMIZATION: All CT scans at this facility use at least one of these dose optimization te chniques: automated exposure control; mA and/or kV adjustment per patient size (includes targeted exa ms where dose is matched to clinical indication); or iterative reconstruction.
[2021-01-13 03:01] LABS: C-Reactive Protein 1.73 mg/dL (0.0-0.3)
[2021-01-13 03:04] LABS: ALT 16 U/L (16-63); AST 10 U/L (15-37); Albumin 2.5 g/dL (3.4-5.0); Alkaline Phosphatase 97 U/L (46-116); Anion Gap 11.9 mmol/L (3-11); BUN 76 mg/dL (7-18); Bilirubin, Total 0.3 mg/dL (0.2-1.0); CO2 21.1 mmol/L (21.0-32.0); Calcium 7.5 mg/dL (8.5-10.1); Chloride 108 mmol/L (98-107); Estimated GFR 5.73 (mL/min/1.73m2); Glucose 155 mg/dL (74-106); Magnesium 1.8 mg/dL (1.8-2.4); Potassium 4.4 mmol/L (3.5-5.1); Sodium 141 mmol/L (136-145); Total Protein 6.6 g/dL (6.4-8.2)
[2021-01-13 03:06] LABS: Troponin I < 0.05 ng/mL (<0.06)
[2021-01-13 03:07] LABS: CREATININE 9.9 mg/dL (0.70-1.30)
--- NOTE | 2021-01-13 03:30 | RT.EKG_ITS ---
APPROVED REPORT Exam: Resting ECG Reason for Exam: Patient Location: E HR:60 bpm ECG Measurements Heart Rate 60 AXIS OR 191 P 45 QRSd 105 QRS 22 QT 469 T 65 QTc 467 Conclusion Sinus rhythm...normal P axis, V-rate 60- 99 ST elev, probable normal early repol pattern...ST elevation, age<55 No Change from EKG done earlier today
[2021-01-13] MEDS: Lactated Ringers 1,000 ML 200 ML IV (03:48)
--- NOTE | 2021-01-13 03:55 | W.PM.HP.N ---
Date of service: 01/13/21 Time of Service: 03:55 Assessment and Plan Assessment and plan (1) Chest pain: Status: Acute Assessment and plan: Chest pain (or back pain), diagnosis unclear. No evidence ACS or pneumonia, doubt pericarditis, concern remains for possible PE. No signs of dissection, though scan w/o contrast, but I think this still needs to be considered as well, though unlikely. All occurring in setting of worsening renal failure, though w/o s/s uremia, and anemia of unknown etiology, though perhaps related to the renal failure. CP: trend troponins, check d-Dimer, U/S LEs. Consider MRA to r/o dissection if dx remains in doubt. Will hold on any empiric anticoagulation (re possible PE) pending questions of dissection and anemia (see below), or until dx of PE established. FRANCY: check U/A, hold ARB and Lasix, trend BUN/Creatinine, monitor electrolytes Normocytic Anemia: retics, iron studies, stool gauiacs History of Present Illness History of Present Illness Chief Complaint: back pain and chest pain Narrative: 45 male with morbid obesity and chronic renal insufficiency comes in tonight with mid thoracic back pain radiating to chest (substernal), pleuritic quality, with gradual onset (reported to ER as sudden onset). No SOB, nausea or diaphoresis. En route received NTG and ASA, w/o effect.In ER initial findings of note for Creatinine 10 (baseline 5), Hct 29 (baseline 11/ of 38), EKG with early repol (per computer), ? NC depression (per ER) and neg troponin. Received Toradol with substantial improvement in pain. CT chest/abdomen w/o contrast unremarkable. Repeat EKG normal. Review of Systems All systems reviewed & are unremarkable except as noted in HPI and below PFSH Medical History Abnormal CT of the abdomen Anxiety disorder Bronchitis, acute, with bronchospasm Chronic kidney disease Depression Discharge planning issues DVT prophylaxis Enlarged prostate Essential hypertension, benign Hyperlipidemia Hypothyroidism (acquired) Obstructive sleep apnea PTSD (post-traumatic stress disorder) Pulmonary nodules/lesions, multiple Shortness of breath Sleep disturbance Social History Smoking/Tobacco Use Status: Current-Occasional Tobacco Type: cigarettes Smoking packs per day: 0.5 Smoking cigarettes per day: 10.0 Years smoked: 2 Smoking pack-years: 1.00 Smoking risk assessment performed?: Yes Alcohol Intake: former Drug use: Never Substance use type: does not use Do you feel safe at home: Yes Do you feel safe in your relationship?: Yes Meds Allergies and Home Medications Allergies Allergy/AdvReac Type Severity Reaction Status Date / Time yellowjackets Allergy Uncoded 07/20/19 16:40 Home Medications Medication Instructions Recorded Confirmed Type atorvastatin 20 mg PO QHS 01/11/19 01/13/21 History furosemide 40 mg PO BID 01/11/19 01/13/21 History levothyroxine 50 mcg PO DAILY 01/11/19 01/13/21 History acetaminophen [Tylenol Extra 1,000 mg PO PRN PRN 07/20/19 01/13/21 History Strength] quetiapine [Seroquel] 50 mg PO QHS 07/20/19 01/13/21 History quetiapine [Seroquel] 300 mg PO QHS 07/20/19 01/13/21 History sertraline 50 mg PO HS 07/20/19 01/13/21 History amlodipine 10 mg PO DAILY #30 tab 07/22/19 01/13/21 Rx benzonatate 200 mg PO TID #30 cap 07/22/19 01/13/21 Rx carvedilol [Coreg] 6.25 mg PO BID #60 tab 07/22/19 01/13/21 Rx guaifenesin [Mucinex] 600 mg PO BID #20 tab 07/22/19 01/13/21 Rx losartan 100 mg PO DAILY #30 tab 07/22/19 01/13/21 Rx albuterol sulfate 90 mcg/actuation 2 puff IH Q6H PRN 08/24/19 01/13/21 History aerosol inhaler polyethylene glycol 3350 17 17 gm PO DAILY 08/24/19 01/13/21 History gram/dose oral powder polyethylene glycol 3350 17 17 gm PO DAILY 08/29/19 01/13/21 History gram/dose oral powder Exam Narrative Exam Narrative: 132/79, 60, 36.9, 22, 99% RA. HEENT atraumatic; neck supple, cannot read JVP; lungs clear; heart distant but RRR; abdomen soft and NT; extremities 1+ pedal edema, calves NT, neg Sarahi's, DP pulses intact; neuro Ox3, lucid, moves all 4s, Results Labs Result diagrams: 01/13/21 01:50 01/13/21 01:50 Labs: Laboratory Results - last 24 hr 01/13/21 01/13/21 01/13/21 01:50 01:50 02:34 WBC 11.61 H RBC 3.33 L Hgb 9.3 L Hct 29.3 L MCV 88.0 MCH 27.9 MCHC 31.7 L RDW 14.4 H Plt Count 194 MPV 10.7 Immature Gran % 0.8 Neutrophils % 82.5 Lymphocytes % 6.4 Monocytes % 7.3 Eosinophils % 2.4 Basophils % 0.6 Nucleated RBC % 0 Absolute Neutrophils 9.58 H Absolute Lymphocytes 0.74 L Absolute Monocytes 0.85 H Absolute Eosinophils 0.28 Absolute Basophils 0.07 ESR Sodium 141 Potassium 4.4 Chloride 108 H Carbon Dioxide 21.1 Anion Gap 11.9 H BUN 76 H Creatinine 9.9 H* Estimated GFR/1.73 m2 5.73 Glucose 155 H Calcium 7.5 L Magnesium 1.8 Total Bilirubin 0.3 AST 10 L ALT 16 Alkaline Phosphatase 97 Troponin I < 0.05 C-Reactive Protein 1.73 H Total Protein 6.6 Albumin 2.5 L 01/13/21 02:34 WBC RBC Hgb Hct MCV MCH MCHC RDW Plt Count MPV Immature Gran % Neutrophils % Lymphocytes % Monocytes % Eosinophils % Basophils % Nucleated RBC % Absolute Neutrophils Absolute Lymphocytes Absolute Monocytes Absolute Eosinophils Absolute Basophils ESR 36 H Sodium Potassium Chloride Carbon Dioxide Anion Gap BUN Creatinine Estimated GFR/1.73 m2 Glucose Calcium Magnesium Total Bilirubin AST ALT Alkaline Phosphatase Troponin I C-Reactive Protein Total Protein Albumin Last Vital Signs Temp 36.9 C 01/13/21 01:47 Pulse 60 01/13/21 03:46 Resp 28 H 01/13/21 03:30 BP 132/79 01/13/21 03:46 Pulse Ox 99 01/13/21 03:46 COVID-19 Screening Have you, or household traveled for leisure in last 14 days?: No Had IN PERSON contact w/suspected or confirmed C-19 person: No
--- NOTE | 2021-01-13 04:05 | DI.VRAD_ITS ---
PROCEDURE INFORMATION: Exam: CT Chest Without Contrast; Diagnostic Exam date and time: 01/13/2021 3:13 AM Age: 45 years old Clinical indication: Other: Back pain; On breathing; Patient HX: Back/chest pain augustus TECHNIQUE: Imaging protocol: Diagnostic computed tomography of the chest without contrast. Radiation optimization: All CT scans at this facility use at least one of these dose optimization techniques: automated exposure control; mA and/or kV adjustment per patient size (includes targeted exams where dose is matched to clinical indication); or iterative reconstruction. COMPARISON: CT CHEST/ABD/PEL WO 07/20/2019 5:52 PM FINDINGS: Mildly limited due to motion artifact Lungs: Minimal subsegmental atelectasis versus scarring No consolidation. No masses. Pleural spaces: No pneumothorax. No pleural effusion. Heart: Unremarkable. No cardiomegaly. No pericardial effusion. Aorta: Unremarkable. No aortic aneurysm. Lymph nodes: Unremarkable. No enlarged lymph nodes. Bones/joints: Unremarkable. No acute fracture. Soft tissues: Unremarkable. IMPRESSION: No acute findings. Of/ileo the leg into PROCEDURE INFORMATION: Exam: CT Abdomen And Pelvis Without Contrast Exam date and time: 01/13/2021 3:13 AM Age: 45 years old Clinical indication: Other: Back pain; On breathing; Patient HX: Back/chest pain augustus TECHNIQUE: Imaging protocol: Computed tomography of the abdomen and pelvis without contrast. Radiation optimization: All CT scans at this facility use at least one of these dose optimization techniques: automated exposure control; mA and/or kV adjustment per patient size (includes targeted exams where dose is matched to clinical indication); or iterative reconstruction. COMPARISON: CT CHEST/ABD/PEL WO 07/20/2019 5:52 PM FINDINGS: Mildly limited due to motion artifact Liver: Hepatomegaly and diffuse fatty infiltration Gallbladder and bile ducts: Normal. No calcified stones. No ductal dilation. Pancreas: Normal. No ductal dilation. Spleen: Normal. No splenomegaly. Adrenal glands: Normal. No mass. Kidneys and ureters: Normal. No hydronephrosis. Stomach and bowel: Unremarkable. No obstruction. No mucosal thickening. Appendix: No evidence of appendicitis. Intraperitoneal space: Unremarkable. No free air. No significant fluid collection. Vasculature: Unremarkable. No abdominal aortic aneurysm. Lymph nodes: Unremarkable. No enlarged lymph nodes. Urinary bladder: Unremarkable as visualized. Reproductive: Unremarkable as visualized. Bones/joints: Degenerative changes in the spine No acute fracture. Soft tissues: Unremarkable. IMPRESSION: No acute findings. Nonspecific nonobstructed bowel gas pattern No CT evidence for obstructive uropathy Dictated and Authenticated by: Juan Manuel Banuelos MD. Ordering:ZBIGNIEW Ballesteros MD
[2021-01-13 04:22] LABS: Source Nasal/Nares
[2021-01-13 04:44] LABS: D-Dimer 1197 ng/mlFEU (<500)
[2021-01-13 05:11] LABS: Prothrombin Time 10.3 sec (9.3-11.0)
[2021-01-13 05:13] LABS: PTT Activated 26.2 sec (21.0-27.5)
[2021-01-13 05:18] LABS: Bilirubin Negative (Negative); Blood Moderate (Negative); Clarity Clear (Clear); Glucose 100 mg/dL (Negative); Ketones Negative (Negative); Leukocyte Esterase Negative (Negative); Nitrite Negative (Negative); Specific Gravity 1.025 (1.005-1.025); Urobilinogen 0.2 EU/dL (Up TO 0.2); pH 5.5 (5-8)
[2021-01-13 05:32] LABS: Troponin I < 0.05 ng/mL (<0.06)
--- NOTE | 2021-01-13 05:34 | NUR.NOTE ---
[employer] will not allow me to enter data under the telemetry tab, so here are the initial tele readings: Sinus robyn, HR 58, NV 0.18, QRS 0.10, QT 0.48.Nursing Note:
[2021-01-13 05:36] LABS: Bacteria Rare HPF (Negative); Crystals Negative HPF (Negative); Epithelial Cells Negative HPF (Negative); Mucus Negative (Negative)
[2021-01-13 05:37] LABS: C & S Indicated? Yes; Casts 3-5 Coarse Granular LPF (Negative)
[2021-01-13] MEDS: Normal Saline 1,000 ML 80 ML IV (06:16)
[2021-01-13] MEDS: Normal Saline Flush 10 ML SYR IVP ×2 (06:17→08:16)
[2021-01-13] MEDS: Carvedilol 6.25 MG TAB PO (08:15)
[2021-01-13 08:34] LABS: *AMPHETAMINES SCREEN URINE Negative (Negative); *BARBITURATES SCREEN URINE Negative (Negative); *BENZODIAZEPINES SCREEN URINE Negative (Negative); Cannabinoids THC Negative (Negative); Cocaine Screen,Urine Negative (Negative); METHADONE URINE SCREEN Negative (Negative); OPIATES URINE SCREEN Negative (Negative); Tricyclic Antidepressants Negative (Negative)
[2021-01-13 08:38] LABS: Creatine Kinase 96 U/L (39-308)
[2021-01-13 08:52] LABS: Reticulocyte 1.8 % (0.5-2.4)
[2021-01-13 09:10] LABS: Anion Gap 14.1 mmol/L (3-11); CO2 19.9 mmol/L (21.0-32.0); Calcium 8.2 mg/dL (8.5-10.1); Chloride 108 mmol/L (98-107); Estimated GFR 5.54 (mL/min/1.73m2); Glucose 116 mg/dL (74-106); Potassium 4.9 mmol/L (3.5-5.1); Sodium 142 mmol/L (136-145)
[2021-01-13 09:13] LABS: BUN 80 mg/dL (7-18)
[2021-01-13 09:14] LABS: CREATININE 10.2 mg/dL (0.70-1.30)
[2021-01-13 09:16] LABS: Iron 13 ug/dL (65-175); Total Iron Binding Capacity 228 ug/dL (250-450); Transferrin Sat 6 % (20-55)
[2021-01-13 09:22] LABS: TSH 1.73 uIU/mL (0.36-3.74)
[2021-01-13 09:29] LABS: Ferritin 276 ng/mL (26-388)
--- NOTE | 2021-01-13 09:45 | RT.EKG_ITS ---
APPROVED REPORT Exam: Resting ECG Reason for Exam: f/u chest pain Patient Location: I HR:64 bpm ECG Measurements Heart Rate 64 AXIS NM 179 P 32 QRSd 105 QRS 34 QT 461 T 52 QTc 475 Conclusion Sinus rhythm...normal P axis, V-rate 60- 99 ST elev, probable normal early repol pattern...ST elevation, age<55
[2021-01-13 10:08] LABS: NT-proBNP 3337 pg/mL (<300)
[2021-01-13] MEDS: nitroGLYcerin 0.4 MG TAB SL (10:12)
[2021-01-13] MEDS: Polyethylene Glycol 3350 17 GM PACKET PO (10:12)
[2021-01-13] MEDS: Lidocaine 2% Jelly 11 ML SYR UR (10:12)
[2021-01-13] MEDS: Acetaminophen 325 MG TAB 650 MG PO (10:12)
[2021-01-13 10:37] LABS: Troponin I < 0.05 ng/mL (<0.06)
[2021-01-13 11:01] LABS: BE -12 mmol/L (-2-3); HCO3 15 mmol/L (22-26); pCO2 35 mmHg (35-45); pH 7.26 (7.35-7.45); pO2 84 mmHg (80-105); sO2 97 % (95-98); tCO2 15 mmol/L (23-27)
[2021-01-13 11:04] LABS: FIO2 21 %; Site Left Radial
[2021-01-13] MEDS: Furosemide 40 MG/4 ML VIAL IVP (11:09)
[2021-01-13 11:12] LABS: PTT Activated 30.7 sec (21.0-27.5)
[2021-01-13 11:25] LABS: COVID-19 PCR Negative (Negative)
[2021-01-13] MEDS: nitroGLYcerin 2% 1 INCH/1 GM PKT TP (11:53)
--- NOTE | 2021-01-13 12:08 | W.PM.DS.N ---
Date of service: 01/13/21 Time of Service: 12:08 DS: Diagnosis Discharge Diagnosis (1) Acute kidney injury superimposed on chronic kidney disease: Status: Acute (2) Acute CHF: Status: Acute (3) Metabolic acidosis: Status: Acute Asessment and Plan: pH 7.25 on ABG, pCO2 34.6 (4) Chest pain: Status: Acute Asessment and Plan: Responsive to nitroglycerin, radiates to the back (5) Acute on chronic anemia: Status: Acute (6) Essential hypertension, benign: Status: Chronic (7) Obstructive sleep apnea: Status: Chronic Asessment and Plan: normally on CPAP (8) Morbid obesity with BMI of 60.0-69.9, adult: Status: Chronic (9) COVID-19 ruled out by laboratory testing: Status: Ruled-out Discharge Plan Disposition Patient Disposition: [facility] Condition: Critical Discharge Details Reason For Visit: CP, FRANCY Admit Date/Time: 01/13/21 04:30 Admit Provider: Scar Dodson Attending Provider: Scar Dodson Primary Care Provider: [facility] Hospital Course Hospital Course: Mr Quiroz is a 45 year old male with PMHx of CKD 5, not yet on dialysis, as well as h/o HTN, hyperlipidemia, ASHKAN on CPAP, obesity with BMI of 62.8 kg/m2 and mental health issues (anxiety, depression, PTSD, psychosis NOS) who was admitted to [facility] hospitalist service on 01/13/21 having presented with chest pain, which was midsternal and radiating to the back and shoulders. Additionally, he was found to be in FRANCY on CKD with Cr of 9.9 (it was 5.58 in 06/2020). His chest pain was initially somewhat relieved with a dose of toradol in the ED. His D-dimer was also elevated. Because of his kidney function, he could not get a CTA of the chest at our facility since we do not have hemodialysis services available. He underwent a noncontrast CT of the chest which did not show any acute pulmonary process. it appeared that his thoracic aorta and abdominal aorta was not dilated, but neither aortic dissection nor PE could be definitively ruled out on this non-contrast study. Meanwhile, the patient was initiated on empiric heparin drip until further diagnostic studies would be available. His troponins are negative x 3. EKGs are not showing acute ischemia and are unchanged. On the medical floor, the patient's chest pain did respond to nitroglycerin, so he was initiated on nitroglycerin ointment. The patient was dyspneic/tachypenic with RR in mid-20s but adequate O2 sats. He does have leg edema and is acting fluid overloaded. His pro-BNP is 3337 (up from 540 in 2019). His ABG reveals metabolic acidosis with pH of 7.257, pCO2 of 34.6, and bicarb of 15.4. Based on this, the patient was initiated on lasix drip and CPAP to help diurese him. He still does make urine, but refuses a dan catheter for UOP monitoring. It is my clinical impression that the patient, despite still making urine, needs hemodialysis, even if diuresis is somewhat successful, because he also needs the CTA to definitively rule out aortic dissection and PE. The patient cannot have either hemodialysis or CTA done at our facility. He was accepted in transfer to [facility] by Dr Stinson with nephrology consulting. Their assistance in taking care of this patient is greatly appreciated. Total Critical Care Time 120 minutes. Please, look at MAR for list of current inpatient medications. The list below reflects an incomplete list of his outpatient medications. Home Meds and New Rx's Prescriptions: No Action albuterol sulfate [ProAir HFA] 90 mcg/actuation HFA aerosol inhaler 2 puff IH Q6H PRNRF: 0 polyethylene glycol 3350 [Miralax] 17 gram/dose powder 17 gm PO DAILY RF: 0 polyethylene glycol 3350 [Miralax] 17 gram/dose powder 17 gm PO DAILY RF: 0 acetaminophen [Tylenol Extra Strength] 500 mg Tablet 1,000 mg PO PRN PRNRF: 0 quetiapine [Seroquel] 300 mg Tablet 300 mg PO QHS RF: 0 quetiapine [Seroquel] 50 mg Tablet 50 mg PO QHS RF: 0 sertraline 25 mg Tablet 50 mg PO HS RF: 0 amlodipine 10 mg tablet 10 mg PO DAILY Qty: 30 RF: 0 carvedilol [Coreg] 6.25 mg Tablet 6.25 mg PO BID Qty: 60 RF: 0 benzonatate 200 mg Capsule 200 mg PO TID Qty: 30 RF: 0 guaifenesin [Mucinex] 600 mg Tablet Extended Release 12hr 600 mg PO BID Qty: 20 RF: 0 losartan 100 mg tablet 100 mg PO DAILY Qty: 30 RF: 0 furosemide 40 mg Tablet 40 mg PO BID RF: 0 atorvastatin 20 mg Tablet 20 mg PO QHS RF: 0 levothyroxine 50 mcg Tablet 50 mcg PO DAILY RF: 0 Discharge Instructions Stand Alone Forms: Nursing Discharge Form Activity:: bedrest w/ bathroom privi Equipment/Supplies:: No Equipment Needed Diet:: renal Discharge Orders Discharge Orders: Discharge Order (Routine); Ordered 01/13/21 Ordered By: Tatyana Whiting DS: Summary Time Spent with Patient providing and/or coordinating discharge services: Greater than 30 minutes Status at Discharge Functional status at discharge: bed bound Overall status at discharge: patient is not back to baseline Mental Status: mental status grossly normal Speech and Movement: speech and movement normal Mood: congruent mood Affect: normal affect Exam Narrative Exam Narrative: General: Obese male who is dypsniec/moderately tachypenic when laying in bed at a 30 degree angle, A&Ox3, not cyanotic HEENT: EOMI, MMM Heart: RRR, no m/r/g Lungs: CTAB - no crackles Abdomen: soft, nontender, nondistended Extremities: 2+ edema BLE's, 1+ pedal pulses B Psych Mental Status: mental status grossly normal Speech and Movement: speech and movement normal Affect: normal affect DS: Data Vitals/I&O Vitals and I&O: Vital Signs Temperature 36.9 C 01/13/21 11:02 Temperature Source Tympanic 01/13/21 11:02 Pulse 61 01/13/21 11:02 Pulse Rhythm Regular 01/13/21 08:10 Pulse 61 01/13/21 03:47 Respiratory Rate 24 01/13/21 11:02 Respiratory Effort 01/13/21 08:10 Respiratory Depth Shallow 01/13/21 08:10 Respiratory Pattern Normal 01/13/21 08:10 Blood Pressure 154/64 H 01/13/21 11:02 Blood Pressure Mean 88 01/13/21 03:46 Blood Pressure Position Supine 01/13/21 01:47 Pulse Oximetry 99 01/13/21 11:02 Oxygen Delivery Method Room Air 01/13/21 11:02 Oxygen Flow Rate 0 01/13/21 11:02 Pain Level 2 01/13/21 11:24 Comment 01/13/21 07:28 Intake & Output 01/12/21 01/13/21 01/13/21 23:59 11:59 23:59 Intake Total 1652 / 1652 Output Total 485 / 485 Balance 1167 / 1167 Weight 204.117 kg Intake: IV 1412 / 1412 Oral 240 / 240 Output: Urine 485 / 485 Other: Urine Color Pale Yellow Urine Appearance Clear Urine Odor None Comment RN explained need for urinary cathether to monitor urine output, patient verbalized understanding. This RN administered lidocaine jelly and patient winced, tensed up, and pulled knees up to abdomen. Patient verbalized he understands importance of monitoring urine output, refused catheter insertion. Charge nurse notified. Voiding Methods Urinal Data Completed and Pending Completed studies during hospitalization [Text1]: CT chest/abdomen/pelvis: 1. No acute abdominal or pelvic process. 2. No acute pulmonary process. Labs on day of discharge: Labs from last 24 hours 01/13/21 01/13/21 01/13/21 11:00 10:55 10:04 WBC RBC Hgb Hct MCV MCH MCHC RDW Plt Count MPV Reticulocyte % (Auto) Immature Gran % Neutrophils % Lymphocytes % Monocytes % Eosinophils % Basophils % Nucleated RBC % Absolute Neutrophils Absolute Lymphocytes Absolute Monocytes Absolute Eosinophils Absolute Basophils ESR PT INR APTT 30.7 H D-Dimer ABG Sample Site Left radial ABG pH 7.26 L ABG pCO2 35 ABG pO2 84 ABG HCO3 15 L ABG Total CO2 15 L ABG O2 Saturation 97 ABG Base Excess -12 L FiO2 21 Sodium Potassium Chloride Carbon Dioxide Anion Gap BUN Creatinine Estimated GFR/1.73 m2 Glucose Calcium Magnesium Iron TIBC Transferrin % Sat Ferritin Total Bilirubin AST ALT Alkaline Phosphatase Creatine Kinase Troponin I < 0.05 C-Reactive Protein NT-Pro-B Natriuret Pep Total Protein Albumin TSH Urine Color Urine Clarity Urine pH Ur Specific [place] Urine Protein Urine Ketones Urine Blood Urine Nitrite Urine Bilirubin Urine Urobilinogen Ur Leukocyte Esterase Urine RBC Urine WBC Ur Epithelial Cells Urine Crystals Urine Bacteria Urine Casts Urine Mucus Ur Culture Indicated? Urine Glucose Urine Opiates Screen Urine Methadone Screen Ur Barbiturates Screen Ur Tricyclics Screen Ur Amphetamines Screen U Benzodiazepines Scrn Urine Cocaine Screen Ur THC Screen COVID-19 Source SARS-CoV-2 (PCR) 01/13/21 01/13/21 01/13/21 10:03 08:00 08:00 WBC RBC Hgb Hct MCV MCH MCHC RDW Plt Count MPV Reticulocyte % (Auto) 1.8 Immature Gran % Neutrophils % Lymphocytes % Monocytes % Eosinophils % Basophils % Nucleated RBC % Absolute Neutrophils Absolute Lymphocytes Absolute Monocytes Absolute Eosinophils Absolute Basophils ESR PT INR APTT Cancelled D-Dimer ABG Sample Site ABG pH ABG pCO2 ABG pO2 ABG HCO3 ABG Total CO2 ABG O2 Saturation ABG Base Excess FiO2 Sodium Potassium Chloride Carbon Dioxide Anion Gap BUN Creatinine Estimated GFR/1.73 m2 Glucose Calcium Magnesium Iron TIBC Transferrin % Sat Ferritin Total Bilirubin AST ALT Alkaline Phosphatase Creatine Kinase Troponin I C-Reactive Protein NT-Pro-B Natriuret Pep Total Protein Albumin TSH 1.73 Urine Color Urine Clarity Urine pH Ur Specific [place] Urine Protein Urine Ketones Urine Blood Urine Nitrite Urine Bilirubin Urine Urobilinogen Ur Leukocyte Esterase Urine RBC Urine WBC Ur Epithelial Cells Urine Crystals Urine Bacteria Urine Casts Urine Mucus Ur Culture Indicated? Urine Glucose Urine Opiates Screen Urine Methadone Screen Ur Barbiturates Screen Ur Tricyclics Screen Ur Amphetamines Screen U Benzodiazepines Scrn Urine Cocaine Screen Ur THC Screen COVID-19 Source SARS-CoV-2 (PCR) 01/13/21 01/13/21 01/13/21 08:00 08:00 08:00 WBC RBC Hgb Hct MCV MCH MCHC RDW Plt Count MPV Reticulocyte % (Auto) Immature Gran % Neutrophils % Lymphocytes % Monocytes % Eosinophils % Basophils % Nucleated RBC % Absolute Neutrophils Absolute Lymphocytes Absolute Monocytes Absolute Eosinophils Absolute Basophils ESR PT INR APTT D-Dimer ABG Sample Site ABG pH ABG pCO2 ABG pO2 ABG HCO3 ABG Total CO2 ABG O2 Saturation ABG Base Excess FiO2 Sodium 142 Potassium 4.9 Chloride 108 H Carbon Dioxide 19.9 L Anion Gap 14.1 H BUN 80 H Creatinine 10.2 H* Estimated GFR/1.73 m2 5.54 Glucose 116 H Calcium 8.2 L Magnesium Iron 13 L TIBC 228 L Transferrin % Sat 6 L Ferritin 276 Total Bilirubin AST ALT Alkaline Phosphatase Creatine Kinase Troponin I C-Reactive Protein NT-Pro-B Natriuret Pep 3337 H Total Protein Albumin TSH Urine Color Urine Clarity Urine pH Ur Specific [place] Urine Protein Urine Ketones Urine Blood Urine Nitrite Urine Bilirubin Urine Urobilinogen Ur Leukocyte Esterase Urine RBC Urine WBC Ur Epithelial Cells Urine Crystals Urine Bacteria Urine Casts Urine Mucus Ur Culture Indicated? Urine Glucose Urine Opiates Screen Urine Methadone Screen Ur Barbiturates Screen Ur Tricyclics Screen Ur Amphetamines Screen U Benzodiazepines Scrn Urine Cocaine Screen Ur THC Screen COVID-19 Source SARS-CoV-2 (PCR) 01/13/21 01/13/21 01/13/21 05:04 04:59 04:42 WBC RBC Hgb Hct MCV MCH MCHC RDW Plt Count MPV Reticulocyte % (Auto) Immature Gran % Neutrophils % Lymphocytes % Monocytes % Eosinophils % Basophils % Nucleated RBC % Absolute Neutrophils Absolute Lymphocytes Absolute Monocytes Absolute Eosinophils Absolute Basophils ESR PT INR APTT D-Dimer ABG Sample Site ABG pH ABG pCO2 ABG pO2 ABG HCO3 ABG Total CO2 ABG O2 Saturation ABG Base Excess FiO2 Sodium Potassium Chloride Carbon Dioxide Anion Gap BUN Creatinine Estimated GFR/1.73 m2 Glucose Calcium Magnesium Iron TIBC Transferrin % Sat Ferritin Total Bilirubin AST ALT Alkaline Phosphatase Creatine Kinase 96 Troponin I Cancelled < 0.05 C-Reactive Protein NT-Pro-B Natriuret Pep Total Protein Albumin TSH Urine Color Urine Clarity Urine pH Ur Specific [place] Urine Protein Urine Ketones Urine Blood Urine Nitrite Urine Bilirubin Urine Urobilinogen Ur Leukocyte Esterase Urine RBC Urine WBC Ur Epithelial Cells Urine Crystals Urine Bacteria Urine Casts Urine Mucus Ur Culture Indicated? Urine Glucose Urine Opiates Screen Negative Urine Methadone Screen Negative Ur Barbiturates Screen Negative Ur Tricyclics Screen Negative Ur Amphetamines Screen Negative U Benzodiazepines Scrn Negative Urine Cocaine Screen Negative Ur THC Screen Negative COVID-19 Source SARS-CoV-2 (PCR) 01/13/21 01/13/21 01/13/21 04:42 04:02 02:34 WBC RBC Hgb Hct MCV MCH MCHC RDW Plt Count MPV Reticulocyte % (Auto) Immature Gran % Neutrophils % Lymphocytes % Monocytes % Eosinophils % Basophils % Nucleated RBC % Absolute Neutrophils Absolute Lymphocytes Absolute Monocytes Absolute Eosinophils Absolute Basophils ESR PT 10.3 INR 1.0 APTT D-Dimer ABG Sample Site ABG pH ABG pCO2 ABG pO2 ABG HCO3 ABG Total CO2 ABG O2 Saturation ABG Base Excess FiO2 Sodium Potassium Chloride Carbon Dioxide Anion Gap BUN Creatinine Estimated GFR/1.73 m2 Glucose Calcium Magnesium Iron TIBC Transferrin % Sat Ferritin Total Bilirubin AST ALT Alkaline Phosphatase Creatine Kinase Troponin I C-Reactive Protein NT-Pro-B Natriuret Pep Total Protein Albumin TSH Urine Color Yellow Urine Clarity Clear Urine pH 5.5 Ur Specific [place] 1.025 Urine Protein >=300 H Urine Ketones Negative Urine Blood Moderate H Urine Nitrite Negative Urine Bilirubin Negative Urine Urobilinogen 0.2 Ur Leukocyte Esterase Negative Urine RBC 5-10 H Urine WBC 5-10 Ur Epithelial Cells Negative Urine Crystals Negative Urine Bacteria Rare Urine Casts 3-5 coarse granular Urine Mucus Negative Ur Culture Indicated? Yes Urine Glucose 100 Urine Opiates Screen Urine Methadone Screen Ur Barbiturates Screen Ur Tricyclics Screen Ur Amphetamines Screen U Benzodiazepines Scrn Urine Cocaine Screen Ur THC Screen COVID-19 Source Nasal/[place] SARS-CoV-2 (PCR) Negative 01/13/21 01/13/21 01/13/21 02:34 02:34 02:34 WBC RBC Hgb Hct MCV MCH MCHC RDW Plt Count MPV Reticulocyte % (Auto) Immature Gran % Neutrophils % Lymphocytes % Monocytes % Eosinophils % Basophils % Nucleated RBC % Absolute Neutrophils Absolute Lymphocytes Absolute Monocytes Absolute Eosinophils Absolute Basophils ESR 36 H PT INR APTT 26.2 D-Dimer 1197 H ABG Sample Site ABG pH ABG pCO2 ABG pO2 ABG HCO3 ABG Total CO2 ABG O2 Saturation ABG Base Excess FiO2 Sodium Potassium Chloride Carbon Dioxide Anion Gap BUN Creatinine Estimated GFR/1.73 m2 Glucose Calcium Magnesium Iron TIBC Transferrin % Sat Ferritin Total Bilirubin AST ALT Alkaline Phosphatase Creatine Kinase Troponin I C-Reactive Protein NT-Pro-B Natriuret Pep Total Protein Albumin TSH Urine Color Urine Clarity Urine pH Ur Specific [place] Urine Protein Urine Ketones Urine Blood Urine Nitrite Urine Bilirubin Urine Urobilinogen Ur Leukocyte Esterase Urine RBC Urine WBC Ur Epithelial Cells Urine Crystals Urine Bacteria Urine Casts Urine Mucus Ur Culture Indicated? Urine Glucose Urine Opiates Screen Urine Methadone Screen Ur Barbiturates Screen Ur Tricyclics Screen Ur Amphetamines Screen U Benzodiazepines Scrn Urine Cocaine Screen Ur THC Screen COVID-19 Source SARS-CoV-2 (PCR) 01/13/21 01/13/21 01/13/21 02:34 01:50 01:50 WBC 11.61 H RBC 3.33 L Hgb 9.3 L Hct 29.3 L MCV 88.0 MCH 27.9 MCHC 31.7 L RDW 14.4 H Plt Count 194 MPV 10.7 Reticulocyte % (Auto) Immature Gran % 0.8 Neutrophils % 82.5 Lymphocytes % 6.4 Monocytes % 7.3 Eosinophils % 2.4 Basophils % 0.6 Nucleated RBC % 0 Absolute Neutrophils 9.58 H Absolute Lymphocytes 0.74 L Absolute Monocytes 0.85 H Absolute Eosinophils 0.28 Absolute Basophils 0.07 ESR PT INR APTT D-Dimer ABG Sample Site ABG pH ABG pCO2 ABG pO2 ABG HCO3 ABG Total CO2 ABG O2 Saturation ABG Base Excess FiO2 Sodium 141 Potassium 4.4 Chloride 108 H Carbon Dioxide 21.1 Anion Gap 11.9 H BUN 76 H Creatinine 9.9 H* Estimated GFR/1.73 m2 5.73 Glucose 155 H Calcium 7.5 L Magnesium 1.8 Iron TIBC Transferrin % Sat Ferritin Total Bilirubin 0.3 AST 10 L ALT 16 Alkaline Phosphatase 97 Creatine Kinase Troponin I < 0.05 C-Reactive Protein 1.73 H NT-Pro-B Natriuret Pep Total Protein 6.6 Albumin 2.5 L TSH Urine Color Urine Clarity Urine pH Ur Specific [place] Urine Protein Urine Ketones Urine Blood Urine Nitrite Urine Bilirubin Urine Urobilinogen Ur Leukocyte Esterase Urine RBC Urine WBC Ur Epithelial Cells Urine Crystals Urine Bacteria Urine Casts Urine Mucus Ur Culture Indicated? Urine Glucose Urine Opiates Screen Urine Methadone Screen Ur Barbiturates Screen Ur Tricyclics Screen Ur Amphetamines Screen U Benzodiazepines Scrn Urine Cocaine Screen Ur THC Screen COVID-19 Source SARS-CoV-2 (PCR) 01/13/21 04:42 Urine - Reflex from Urine Culture - Pending Preliminary micro results at discharge 01/13/21 04:42 Urine Culture - Pending Urine - Reflex from [facility] Medical History (Updated 01/13/21 @ 12:21 by Tatyana Whiting MD) Abnormal CT of the abdomen Anxiety disorder Bronchitis, acute, with bronchospasm Chronic kidney disease Depression Enlarged prostate Essential hypertension, benign Hyperlipidemia Hypothyroidism (acquired) Obstructive sleep apnea PTSD (post-traumatic stress disorder) Pulmonary nodules/lesions, multiple Shortness of breath Sleep disturbance Surgical History (Updated 01/13/21 @ 12:22 by Tatyana Whiting MD) No pertinent past surgical history Social History Smoking/Tobacco Use Status: Current-Occasional Tobacco Type: cigarettes Smoking packs per day: 0.5 Smoking cigarettes per day: 10.0 Years smoked: 2 Smoking pack-years: 1.00 Smoking risk assessment performed?: Yes Alcohol Intake: former Drug use: Never Substance use type: does not use Do you feel safe at home: Yes Do you feel safe in your relationship?: Yes
[2021-01-13] MEDS: Nicotine 14 MG/24 HR PATCH TD (12:50)
--- NOTE | 2021-01-13 13:20 | PGE_ITS ---
Date of Service Date of service: 01/13/21 Time of Service: 13:20 Subjective Subjective Interval history since last seen: Encounter to document additional 30 minutes of critical care time (for the total of 120 minutes). Objective Last Vital Signs Temp 36.9 C 01/13/21 11:02 Pulse 61 01/13/21 11:02 Resp 24 01/13/21 11:02 BP 154/64 H 01/13/21 11:02 Pulse Ox 99 01/13/21 11:02 Laboratory Results - last 24 hr 01/13/21 01/13/21 01/13/21 01:50 01:50 02:34 WBC 11.61 H RBC 3.33 L Hgb 9.3 L Hct 29.3 L MCV 88.0 MCH 27.9 MCHC 31.7 L RDW 14.4 H Plt Count 194 MPV 10.7 Reticulocyte % (Auto) Immature Gran % 0.8 Neutrophils % 82.5 Lymphocytes % 6.4 Monocytes % 7.3 Eosinophils % 2.4 Basophils % 0.6 Nucleated RBC % 0 Absolute Neutrophils 9.58 H Absolute Lymphocytes 0.74 L Absolute Monocytes 0.85 H Absolute Eosinophils 0.28 Absolute Basophils 0.07 ESR PT INR APTT D-Dimer ABG Sample Site ABG pH ABG pCO2 ABG pO2 ABG HCO3 ABG Total CO2 ABG O2 Saturation ABG Base Excess FiO2 Sodium 141 Potassium 4.4 Chloride 108 H Carbon Dioxide 21.1 Anion Gap 11.9 H BUN 76 H Creatinine 9.9 H* Estimated GFR/1.73 m2 5.73 Glucose 155 H Calcium 7.5 L Magnesium 1.8 Iron TIBC Transferrin % Sat Ferritin Total Bilirubin 0.3 AST 10 L ALT 16 Alkaline Phosphatase 97 Creatine Kinase Troponin I < 0.05 C-Reactive Protein 1.73 H NT-Pro-B Natriuret Pep Total Protein 6.6 Albumin 2.5 L TSH Urine Color Urine Clarity Urine pH Ur Specific [place] Urine Protein Urine Ketones Urine Blood Urine Nitrite Urine Bilirubin Urine Urobilinogen Ur Leukocyte Esterase Urine RBC Urine WBC Ur Epithelial Cells Urine Crystals Urine Bacteria Urine Casts Urine Mucus Ur Culture Indicated? Urine Glucose Urine Opiates Screen Urine Methadone Screen Ur Barbiturates Screen Ur Tricyclics Screen Ur Amphetamines Screen U Benzodiazepines Scrn Urine Cocaine Screen Ur THC Screen COVID-19 Source SARS-CoV-2 (PCR) 01/13/21 01/13/21 01/13/21 02:34 02:34 02:34 WBC RBC Hgb Hct MCV MCH MCHC RDW Plt Count MPV Reticulocyte % (Auto) Immature Gran % Neutrophils % Lymphocytes % Monocytes % Eosinophils % Basophils % Nucleated RBC % Absolute Neutrophils Absolute Lymphocytes Absolute Monocytes Absolute Eosinophils Absolute Basophils ESR 36 H PT INR APTT 26.2 D-Dimer 1197 H ABG Sample Site ABG pH ABG pCO2 ABG pO2 ABG HCO3 ABG Total CO2 ABG O2 Saturation ABG Base Excess FiO2 Sodium Potassium Chloride Carbon Dioxide Anion Gap BUN Creatinine Estimated GFR/1.73 m2 Glucose Calcium Magnesium Iron TIBC Transferrin % Sat Ferritin Total Bilirubin AST ALT Alkaline Phosphatase Creatine Kinase Troponin I C-Reactive Protein NT-Pro-B Natriuret Pep Total Protein Albumin TSH Urine Color Urine Clarity Urine pH Ur Specific [place] Urine Protein Urine Ketones Urine Blood Urine Nitrite Urine Bilirubin Urine Urobilinogen Ur Leukocyte Esterase Urine RBC Urine WBC Ur Epithelial Cells Urine Crystals Urine Bacteria Urine Casts Urine Mucus Ur Culture Indicated? Urine Glucose Urine Opiates Screen Urine Methadone Screen Ur Barbiturates Screen Ur Tricyclics Screen Ur Amphetamines Screen U Benzodiazepines Scrn Urine Cocaine Screen Ur THC Screen COVID-19 Source SARS-CoV-2 (PCR) 01/13/21 01/13/21 01/13/21 02:34 04:02 04:42 WBC RBC Hgb Hct MCV MCH MCHC RDW Plt Count MPV Reticulocyte % (Auto) Immature Gran % Neutrophils % Lymphocytes % Monocytes % Eosinophils % Basophils % Nucleated RBC % Absolute Neutrophils Absolute Lymphocytes Absolute Monocytes Absolute Eosinophils Absolute Basophils ESR PT 10.3 INR 1.0 APTT D-Dimer ABG Sample Site ABG pH ABG pCO2 ABG pO2 ABG HCO3 ABG Total CO2 ABG O2 Saturation ABG Base Excess FiO2 Sodium Potassium Chloride Carbon Dioxide Anion Gap BUN Creatinine Estimated GFR/1.73 m2 Glucose Calcium Magnesium Iron TIBC Transferrin % Sat Ferritin Total Bilirubin AST ALT Alkaline Phosphatase Creatine Kinase Troponin I C-Reactive Protein NT-Pro-B Natriuret Pep Total Protein Albumin TSH Urine Color Yellow Urine Clarity Clear Urine pH 5.5 Ur Specific [place] 1.025 Urine Protein >=300 H Urine Ketones Negative Urine Blood Moderate H Urine Nitrite Negative Urine Bilirubin Negative Urine Urobilinogen 0.2 Ur Leukocyte Esterase Negative Urine RBC 5-10 H Urine WBC 5-10 Ur Epithelial Cells Negative Urine Crystals Negative Urine Bacteria Rare Urine Casts 3-5 coarse granular Urine Mucus Negative Ur Culture Indicated? Yes Urine Glucose 100 Urine Opiates Screen Urine Methadone Screen Ur Barbiturates Screen Ur Tricyclics Screen Ur Amphetamines Screen U Benzodiazepines Scrn Urine Cocaine Screen Ur THC Screen COVID-19 Source Nasal/[place] SARS-CoV-2 (PCR) Negative 01/13/21 01/13/21 01/13/21 04:42 04:59 05:04 WBC RBC Hgb Hct MCV MCH MCHC RDW Plt Count MPV Reticulocyte % (Auto) Immature Gran % Neutrophils % Lymphocytes % Monocytes % Eosinophils % Basophils % Nucleated RBC % Absolute Neutrophils Absolute Lymphocytes Absolute Monocytes Absolute Eosinophils Absolute Basophils ESR PT INR APTT D-Dimer ABG Sample Site ABG pH ABG pCO2 ABG pO2 ABG HCO3 ABG Total CO2 ABG O2 Saturation ABG Base Excess FiO2 Sodium Potassium Chloride Carbon Dioxide Anion Gap BUN Creatinine Estimated GFR/1.73 m2 Glucose Calcium Magnesium Iron TIBC Transferrin % Sat Ferritin Total Bilirubin AST ALT Alkaline Phosphatase Creatine Kinase 96 Troponin I < 0.05 Cancelled C-Reactive Protein NT-Pro-B Natriuret Pep Total Protein Albumin TSH Urine Color Urine Clarity Urine pH Ur Specific [place] Urine Protein Urine Ketones Urine Blood Urine Nitrite Urine Bilirubin Urine Urobilinogen Ur Leukocyte Esterase Urine RBC Urine WBC Ur Epithelial Cells Urine Crystals Urine Bacteria Urine Casts Urine Mucus Ur Culture Indicated? Urine Glucose Urine Opiates Screen Negative Urine Methadone Screen Negative Ur Barbiturates Screen Negative Ur Tricyclics Screen Negative Ur Amphetamines Screen Negative U Benzodiazepines Scrn Negative Urine Cocaine Screen Negative Ur THC Screen Negative COVID-19 Source SARS-CoV-2 (PCR) 01/13/21 01/13/21 01/13/21 08:00 08:00 08:00 WBC RBC Hgb Hct MCV MCH MCHC RDW Plt Count MPV Reticulocyte % (Auto) Immature Gran % Neutrophils % Lymphocytes % Monocytes % Eosinophils % Basophils % Nucleated RBC % Absolute Neutrophils Absolute Lymphocytes Absolute Monocytes Absolute Eosinophils Absolute Basophils ESR PT INR APTT D-Dimer ABG Sample Site ABG pH ABG pCO2 ABG pO2 ABG HCO3 ABG Total CO2 ABG O2 Saturation ABG Base Excess FiO2 Sodium 142 Potassium 4.9 Chloride 108 H Carbon Dioxide 19.9 L Anion Gap 14.1 H BUN 80 H Creatinine 10.2 H* Estimated GFR/1.73 m2 5.54 Glucose 116 H Calcium 8.2 L Magnesium Iron 13 L TIBC 228 L Transferrin % Sat 6 L Ferritin 276 Total Bilirubin AST ALT Alkaline Phosphatase Creatine Kinase Troponin I C-Reactive Protein NT-Pro-B Natriuret Pep 3337 H Total Protein Albumin TSH Urine Color Urine Clarity Urine pH Ur Specific [place] Urine Protein Urine Ketones Urine Blood Urine Nitrite Urine Bilirubin Urine Urobilinogen Ur Leukocyte Esterase Urine RBC Urine WBC Ur Epithelial Cells Urine Crystals Urine Bacteria Urine Casts Urine Mucus Ur Culture Indicated? Urine Glucose Urine Opiates Screen Urine Methadone Screen Ur Barbiturates Screen Ur Tricyclics Screen Ur Amphetamines Screen U Benzodiazepines Scrn Urine Cocaine Screen Ur THC Screen COVID-19 Source SARS-CoV-2 (PCR) 01/13/21 01/13/21 01/13/21 08:00 08:00 10:03 WBC RBC Hgb Hct MCV MCH MCHC RDW Plt Count MPV Reticulocyte % (Auto) 1.8 Immature Gran % Neutrophils % Lymphocytes % Monocytes % Eosinophils % Basophils % Nucleated RBC % Absolute Neutrophils Absolute Lymphocytes Absolute Monocytes Absolute Eosinophils Absolute Basophils ESR PT INR APTT Cancelled D-Dimer ABG Sample Site ABG pH ABG pCO2 ABG pO2 ABG HCO3 ABG Total CO2 ABG O2 Saturation ABG Base Excess FiO2 Sodium Potassium Chloride Carbon Dioxide Anion Gap BUN Creatinine Estimated GFR/1.73 m2 Glucose Calcium Magnesium Iron TIBC Transferrin % Sat Ferritin Total Bilirubin AST ALT Alkaline Phosphatase Creatine Kinase Troponin I C-Reactive Protein NT-Pro-B Natriuret Pep Total Protein Albumin TSH 1.73 Urine Color Urine Clarity Urine pH Ur Specific [place] Urine Protein Urine Ketones Urine Blood Urine Nitrite Urine Bilirubin Urine Urobilinogen Ur Leukocyte Esterase Urine RBC Urine WBC Ur Epithelial Cells Urine Crystals Urine Bacteria Urine Casts Urine Mucus Ur Culture Indicated? Urine Glucose Urine Opiates Screen Urine Methadone Screen Ur Barbiturates Screen Ur Tricyclics Screen Ur Amphetamines Screen U Benzodiazepines Scrn Urine Cocaine Screen Ur THC Screen COVID-19 Source SARS-CoV-2 (PCR) 01/13/21 01/13/21 01/13/21 10:04 10:55 11:00 WBC RBC Hgb Hct MCV MCH MCHC RDW Plt Count MPV Reticulocyte % (Auto) Immature Gran % Neutrophils % Lymphocytes % Monocytes % Eosinophils % Basophils % Nucleated RBC % Absolute Neutrophils Absolute Lymphocytes Absolute Monocytes Absolute Eosinophils Absolute Basophils ESR PT INR APTT 30.7 H D-Dimer ABG Sample Site Left radial ABG pH 7.26 L ABG pCO2 35 ABG pO2 84 ABG HCO3 15 L ABG Total CO2 15 L ABG O2 Saturation 97 ABG Base Excess -12 L FiO2 21 Sodium Potassium Chloride Carbon Dioxide Anion Gap BUN Creatinine Estimated GFR/1.73 m2 Glucose Calcium Magnesium Iron TIBC Transferrin % Sat Ferritin Total Bilirubin AST ALT Alkaline Phosphatase Creatine Kinase Troponin I < 0.05 C-Reactive Protein NT-Pro-B Natriuret Pep Total Protein Albumin TSH Urine Color Urine Clarity Urine pH Ur Specific [place] Urine Protein Urine Ketones Urine Blood Urine Nitrite Urine Bilirubin Urine Urobilinogen Ur Leukocyte Esterase Urine RBC Urine WBC Ur Epithelial Cells Urine Crystals Urine Bacteria Urine Casts Urine Mucus Ur Culture Indicated? Urine Glucose Urine Opiates Screen Urine Methadone Screen Ur Barbiturates Screen Ur Tricyclics Screen Ur Amphetamines Screen U Benzodiazepines Scrn Urine Cocaine Screen Ur THC Screen COVID-19 Source SARS-CoV-2 (PCR)
--- NOTE | 2021-01-13 14:55 | NUR.NOTE ---
Nursing Note: 01/13/21 14:55 Patient was picked up by [facility] Critical [facility] Transport, this RN provided handoff and completed appropriate paperwork with patient and transport personnel.
--- NOTE | 2021-01-13 16:34 | NUR.NOTE ---
Nursing Note: 01/13/21 16:34 Report given to Dawn at [facility] for [id number] handoff on this patient.
== END 2021-01-13 14:43 | DRG 313 ==
LOC: ER 04:58 → MS 05:19
PROVIDERS: Internal Medicine; Admitting Provider General Practice; Emergency Provider Emergency Medicine; PCP Nurse Practitioner Family; Visit Provider General Practice
DX: R07.89 Other chest pain (principal); I26.99 Other pulmonary embolism without acute cor pulmonale; N17.9 Acute kidney failure, unspecified; I13.2 Hypertensive heart and chronic kidney disease with heart failure and with stage 5 chronic kidney disease, or end stage renal disease; Z68.44 Body mass index [BMI] 60.0-69.9, adult; E87.2 Acidosis; N18.5 Chronic kidney disease, stage 5; D68.8 Other specified coagulation defects; E66.01 Morbid (severe) obesity due to excess calories; D64.9 Anemia, unspecified; F41.9 Anxiety disorder, unspecified; F32.9 Major depressive disorder, single episode, unspecified; I50.9 Heart failure, unspecified; N40.0 Benign prostatic hyperplasia without lower urinary tract symptoms; G47.33 Obstructive sleep apnea (adult) (pediatric); F43.10 Post-traumatic stress disorder, unspecified; R91.8 Other nonspecific abnormal finding of lung field; F17.210 Nicotine dependence, cigarettes, uncomplicated; Z20.822 Contact with and (suspected) exposure to COVID-19
CPT/HCPCS: 36415; 71250; 80048; 80053; 80307; 82550; 82805; 85652; 87635; 93005; 96361; 96374; 99285; 36600; 74176; 81003; 81015; 82728; 83540; 83550; 83735; 83880; 84443; 84484; 85025; 85045; 85379; 85610; 85730; 86140; 87086; 93010; 94660; 99222; 99291; 99292; J1885; J1940; J3490

== ENCOUNTER 2021-01-20 18:29 | Observation (INO) | payer MEDICAID, SELFPAY ==
[2021-01-20] VITALS (57 sets, daily range): BP systolic 103–142; BP diastolic 63–105; PULSE 62–140; RESP 15–41; TEMP 37.4; O2SAT 92–96
--- NOTE | 2021-01-20 18:15 | RT.EKG_ITS ---
APPROVED REPORT Exam: Resting ECG Reason for Exam: chest pain Patient Location: E HR:134 bpm ECG Measurements Heart Rate 134 AXIS NC [id number] P [id number] QRSd 94 QRS 42 QT 310 T [id number] QTc 464 Conclusion Atrial fibrillation...? atrial activity Low voltage, precordial leads...precordial leads <1.0mV. No STEMI. I have reviewed and interpreted ECG and agree with software generated interpretation.
--- NOTE | 2021-01-20 18:27 | ED.GENADUL_ITS ---
Discharge Plan Disposition Patient Disposition: [facility] INPATIENT Condition: Fair Discharge Details Clinical Impression: Atrial fibrillation with rapid ventricular response, Acute kidney injury superimposed on chronic kidney disease, Acute on chronic anemia, Pneumonia Admit Date/Time: 01/20/21 23:41 Admit Provider: Scar Dodson Attending Provider: Scar Dodson Primary Care Provider: Michelle Park ED Provider: Shaniqua Davidson Discharge Data Discharge Date/Time-TO BE ENTERED AT DEPARTURE: 01/21/21 01:45 Medical Decision Making 1840 -- 45-year-old male with a history of morbid obesity, hypertension, hyperlipidemia, hypothyroidism, chronic kidney disease and recently diagnosed atrial fibrillation presents with chest pain and shortness of breath with exertion for the past 2 days. Patient was admitted here 1 week ago for the same symptoms and was noted to have FRANCY on CKD and was transferred to [facility] after admitted to the floor here for potential need for CTA chest and dialysis. Patient states his kidney function improved and he did not have hemodialysis. He took his metoprolol this morning. EKG on arrival notes a rate of 134, A. fib, no STEMI. Heart rate on arrival 120s to 130s. Blood pressure 142/105. He appears labored when speaking but does not have significant respiratory distress. His lung sounds are clear. Suspect his symptoms are due to rapid A. fib. Also consider ACS, electrolyte abnormality, metabolic process, PE. Will obtain screening labs, portable chest x-ray and give a dose of 5 mg Lopressor. 1930 --heart rate remains 110s to 120s. Will give a dose of Cardizem. Labs and imaging reviewed. White blood cell count 15. Hemoglobin 8.3 dropped from 9.3 one week ago. INR 1.9. BUN 100. Creatinine 14, up from ten 1 week ago. BNP 4000, up from 3300 one week ago. Troponin negative. Will discuss with [facility] nephrology. Patient states he cannot cross the border to [place] due to violation of his parole. I discussed with care management who discussed with Jessica Koenig with probation and parole and she states she would give patient clearance to cross the border but he will need to sign a release once he gets to [facility]. Discussed with [facility] transfer center and no beds available. I discussed case with [facility] medicine who stated that patient likely does not need need for urgent dialysis but recommend ABG for further assessment of his bicarbonate which could be an indicator. Patient states he would prefer not to go to [facility] due to the location and he feels that they focused too much on his kidney and not his breathing. Discussed with hospitalist who does not feel comfortable with patient being admitted here. Discussed again with [facility] hospitalist Dr. Yepez and he accepts patient for transfer, unfortunately there are no beds available for 24 to 48 hours. Discussed again with hospitalist that he did not feel comfortable with holding patient here while awaiting transfer. 2100 --patient states he feels somewhat better and and acutely denies shortness of breath. Heart rate remains 120s. Will give another dose of Cardizem. Chest x-ray notes pulmonary vascular congestion and pulmonary edema suggestive of congestive heart failure. Superimposed bilateral lower lobe pneumonia cannot be excluded. As his white blood cell count is 15, will treat for potential HCAP. Will order a dose of Zosyn. Patient cannot take linezolid due to his SSRIs. Will have pharmacy dose vancomycin. Discussed with [facility], [facility], [facility], [facility], [facility], [facility], [facility], [facility] and no beds available. Discussed with hospitalist again and he is declining admission as he feels he needs urgent dialysis. Patient stated to Dr. Dodson that he feels short of breath. His oxygen saturation is 93% on room air. We will give a dose of Lasix IV and call [facility] again to see if they would accept patient in transfer tonight. I discussed the case again with Dr. Yepez who does not feel that patient needs urgent dialysis. I also spoke with [facility] nephrology who also did not feel that patient needed urgent transfer for dialysis. She recommends 160 mg of Lasix IV and 500 mg of Diuril IV. We do not have Diuril available. I spoke with [facility] pharmacy who states that we have no IV thiazides medications in house. 2330 - Discussed with hospitalist again and he accepts patient for admission here overnight while awaiting transfer to [facility]. Heart rate remains 120s. Will start Cardizem drip. Medical Records Medical records reviewed: Yes I reviewed the patient's medical records. Imaging Data Radiologic Study: Radiologist's impression: XR Chest Exam date and time: 01/20/2021 6:50 PM Age: 45 years old Clinical indication: Shortness of breath; Other: Unspecified; Patient HX: Chest pain, SOB; Additional info: R/O acute disease TECHNIQUE: Imaging protocol: XR of the chest. Views: 1 view. COMPARISON: CT CHEST/ABD/PEL WO 01/13/2021 3:19 AM FINDINGS: Lungs: Pulmonary vascular congestion and interstitial pulmonary edema. Bilateral lower lobe infiltrates. Pleural spaces: Unremarkable. No pleural effusion. No pneumothorax. Heart/Mediastinum: Marked cardiomegaly. Bones/joints: Unremarkable. IMPRESSION: 1. Marked cardiomegaly. Pulmonary vascular congestion and interstitial pulmonary edema suggestive of congestive heart failure. 2. Superimposed bilateral lower lobe pneumonias cannot be excluded. Lab Data Lab results reviewed: Yes I reviewed the patient's lab results. Labs: 01/20/21 21:03 Blood Blood Culture - Pending 01/20/21 20:53 Blood Blood Culture - Pending Laboratory Tests Range/Units 01/20/21 01/20/21 01/20/21 19:05 19:05 19:05 WBC (4.4-10.8) 10^3/uL 15.28 H RBC (4.36-5.78) 10^6/uL 2.93 L Hgb (13.5-17.5) g/dL 8.3 L Hct (40.0-50.0) % 25.3 L MCV (80-95) fL 86.3 MCH (27.0-33.0) pg 28.3 MCHC (32.0-36.0) % 32.8 RDW (11.8-14.1) % 14.0 Plt Count (130-400) 10^3/uL 255 MPV (8.0-11.0) fL 10.7 Immature Gran % 1.6 Neutrophils % 81.8 Lymphocytes % 4.2 Monocytes % 11.5 Eosinophils % 0.6 Basophils % 0.3 Nucleated RBC % % 0 Absolute Neutrophils (1.2-6.7) 10^3/uL 12.50 H Absolute Lymphocytes (1.2-3.4) 10^3/uL 0.64 L Absolute Monocytes (0.1-0.8) 10^3/uL 1.76 H Absolute Eosinophils (0.0-0.7) 10^3/uL 0.09 Absolute Basophils (0.0-0.2) 10^3/uL 0.05 RBC Morphology Normal PT (9.3-11.0) sec 19.0 H D INR (0.9-1.1) 1.9 H D APTT (21.0-27.5) sec 33.2 H ABG Sample Site ABG pH ABG pCO2 ABG pO2 ABG HCO3 ABG Total CO2 ABG O2 Saturation ABG Base Excess VBG pH (7.31-7.41) VBG pCO2 (41-51) mmHg VBG pO2 mmHg VBG HCO3 (23-28) mmol/L VBG Total CO2 (24-29) mmol/L VBG O2 Saturation % VBG Base Excess (-2-3) mmol/L VBG Lactate (0.6-1.4) mmol/L Oxygen Liter Flow FiO2 Sodium (136-145) mmol/L 136 Potassium (3.5-5.1) mmol/L 4.2 Chloride (98-107) mmol/L 101 Carbon Dioxide (21.0-32.0) mmol/L 14.4 L Anion Gap (3-11) mmol/L 20.6 H BUN (7-18) mg/dL 100 H* Creatinine (0.70-1.30) mg/dL 14.2 H* Estimated GFR/1.73 m2 (mL/min/1.73m2) 3.78 Glucose (74-106) mg/dL 115 H Calcium (8.5-10.1) mg/dL 8.2 L Magnesium (1.8-2.4) mg/dL 2.1 Total Bilirubin (0.2-1.0) mg/dL 0.3 AST (15-37) U/L 14 L ALT (16-63) U/L 39 Alkaline Phosphatase (46-116) U/L 168 H Troponin I (<0.06) ng/mL < 0.05 NT-Pro-B Natriuret Pep (<300) pg/mL Total Protein (6.4-8.2) g/dL 7.2 Albumin (3.4-5.0) g/dL 2.4 L COVID-19 Source Range/Units 01/20/21 01/20/21 01/20/21 19:05 20:05 20:17 WBC (4.4-10.8) 10^3/uL RBC (4.36-5.78) 10^6/uL Hgb (13.5-17.5) g/dL Hct (40.0-50.0) % MCV (80-95) fL MCH (27.0-33.0) pg MCHC (32.0-36.0) % RDW (11.8-14.1) % Plt Count (130-400) 10^3/uL MPV (8.0-11.0) fL Immature Gran % Neutrophils % Lymphocytes % Monocytes % Eosinophils % Basophils % Nucleated RBC % % Absolute Neutrophils (1.2-6.7) 10^3/uL Absolute Lymphocytes (1.2-3.4) 10^3/uL Absolute Monocytes (0.1-0.8) 10^3/uL Absolute Eosinophils (0.0-0.7) 10^3/uL Absolute Basophils (0.0-0.2) 10^3/uL RBC Morphology PT (9.3-11.0) sec INR (0.9-1.1) APTT (21.0-27.5) sec ABG Sample Site Cancelled ABG pH Cancelled ABG pCO2 Cancelled ABG pO2 Cancelled ABG HCO3 Cancelled ABG Total CO2 Cancelled ABG O2 Saturation Cancelled ABG Base Excess Cancelled VBG pH (7.31-7.41) 7.25 L VBG pCO2 (41-51) mmHg 29 L VBG pO2 mmHg 66 VBG HCO3 (23-28) mmol/L 13 L VBG Total CO2 (24-29) mmol/L 13 L VBG O2 Saturation % 92 VBG Base Excess (-2-3) mmol/L -14 L VBG Lactate (0.6-1.4) mmol/L Oxygen Liter Flow Cancelled FiO2 Cancelled Sodium (136-145) mmol/L Potassium (3.5-5.1) mmol/L Chloride (98-107) mmol/L Carbon Dioxide (21.0-32.0) mmol/L Anion Gap (3-11) mmol/L BUN (7-18) mg/dL Creatinine (0.70-1.30) mg/dL Estimated GFR/1.73 m2 (mL/min/1.73m2) Glucose (74-106) mg/dL Calcium (8.5-10.1) mg/dL Magnesium (1.8-2.4) mg/dL Total Bilirubin (0.2-1.0) mg/dL AST (15-37) U/L ALT (16-63) U/L Alkaline Phosphatase (46-116) U/L Troponin I (<0.06) ng/mL NT-Pro-B Natriuret Pep (<300) pg/mL 4057 H Total Protein (6.4-8.2) g/dL Albumin (3.4-5.0) g/dL COVID-19 Source Range/Units 01/20/21 01/20/21 20:53 21:25 WBC (4.4-10.8) 10^3/uL RBC (4.36-5.78) 10^6/uL Hgb (13.5-17.5) g/dL Hct (40.0-50.0) % MCV (80-95) fL MCH (27.0-33.0) pg MCHC (32.0-36.0) % RDW (11.8-14.1) % Plt Count (130-400) 10^3/uL MPV (8.0-11.0) fL Immature Gran % Neutrophils % Lymphocytes % Monocytes % Eosinophils % Basophils % Nucleated RBC % % Absolute Neutrophils (1.2-6.7) 10^3/uL Absolute Lymphocytes (1.2-3.4) 10^3/uL Absolute Monocytes (0.1-0.8) 10^3/uL Absolute Eosinophils (0.0-0.7) 10^3/uL Absolute Basophils (0.0-0.2) 10^3/uL RBC Morphology PT (9.3-11.0) sec INR (0.9-1.1) APTT (21.0-27.5) sec ABG Sample Site ABG pH ABG pCO2 ABG pO2 ABG HCO3 ABG Total CO2 ABG O2 Saturation ABG Base Excess VBG pH (7.31-7.41) VBG pCO2 (41-51) mmHg VBG pO2 mmHg VBG HCO3 (23-28) mmol/L VBG Total CO2 (24-29) mmol/L VBG O2 Saturation % VBG Base Excess (-2-3) mmol/L VBG Lactate (0.6-1.4) mmol/L 0.6 Oxygen Liter Flow FiO2 Sodium (136-145) mmol/L Potassium (3.5-5.1) mmol/L Chloride (98-107) mmol/L Carbon Dioxide (21.0-32.0) mmol/L Anion Gap (3-11) mmol/L BUN (7-18) mg/dL Creatinine (0.70-1.30) mg/dL Estimated GFR/1.73 m2 (mL/min/1.73m2) Glucose (74-106) mg/dL Calcium (8.5-10.1) mg/dL Magnesium (1.8-2.4) mg/dL Total Bilirubin (0.2-1.0) mg/dL AST (15-37) U/L ALT (16-63) U/L Alkaline Phosphatase (46-116) U/L Troponin I (<0.06) ng/mL NT-Pro-B Natriuret Pep (<300) pg/mL Total Protein (6.4-8.2) g/dL Albumin (3.4-5.0) g/dL COVID-19 Source Nasal/nares ECG Data Attestation: I personally reviewed and interpreted this ECG (s) as follows: Interpretation: Rate of 134, atrial fibrillation, no STEMI. HPI General Mode of arrival: EMS . Date/Time Provider Initiated Documentation: 01/20/21 18:33 . Limitations to Documentation: physical limitation . Information obtained by: patient . HPI Narrative: Patient is a 45-year-old male with a history of morbid obesity, hypertension, hyperlipidemia, PTSD, chronic kidney disease, and recently diagnosed atrial fibrillation presents to the ED with a complaint of chest pain and shortness of breath on exertion for the past 9 days. Patient was admitted here 1 week ago for chest pain and FRANCY on CKD and transferred to [facility] for potential need for CTA chest and dialysis. Patient states he was started on multiple new medications including torsemide, warfarin, sodium bicarbonate and his metoprolol dose was changed from once daily to twice daily. He states his symptoms did somewhat improve upon discharge 2 days ago but states shortly after this they returned. He states he did not contact [facility] cardiology or his primary care doctor regarding these worsening symptoms. He states he is having difficulty ambulating due to the increase in shortness of breath and chest pain. He also admits to decreased appetite but denies any fever, vomiting or cough. Related Data Home Medications Medication Instructions Recorded Confirmed atorvastatin 20 mg PO QHS 01/11/19 01/20/21 furosemide 40 mg PO BID 01/11/19 01/13/21 levothyroxine 50 mcg PO DAILY 01/11/19 01/13/21 acetaminophen [Tylenol Extra 1,000 mg PO PRN PRN 07/20/19 01/13/21 Strength] quetiapine [Seroquel] 50 mg PO QHS 07/20/19 01/13/21 quetiapine [Seroquel] 200 mg PO QHS 07/20/19 01/20/21 sertraline 50 mg PO HS 07/20/19 01/20/21 amlodipine 10 mg PO DAILY #30 tab 07/22/19 01/20/21 benzonatate 200 mg PO TID #30 cap 07/22/19 01/13/21 carvedilol [Coreg] 6.25 mg PO BID #60 tab 07/22/19 01/13/21 guaifenesin [Mucinex] 600 mg PO BID #20 tab 07/22/19 01/13/21 losartan 100 mg PO DAILY #30 tab 07/22/19 01/13/21 albuterol sulfate 90 mcg/actuation 2 puff IH Q6H PRN 08/24/19 01/13/21 aerosol inhaler polyethylene glycol 3350 17 17 gm PO DAILY 08/24/19 01/13/21 gram/dose oral powder polyethylene glycol 3350 17 17 gm PO DAILY 08/29/19 01/13/21 gram/dose oral powder bupropion HCl 100 mg PO DAILY 01/20/21 01/20/21 calcium carbonate 500 mg PO TID 01/20/21 01/20/21 ferrous sulfate 325 mg PO DAILY 01/20/21 01/20/21 hydralazine 10 mg PO DAILY 01/20/21 01/20/21 metoprolol succinate 100 mg PO DAILY 01/20/21 01/20/21 sodium bicarbonate 650 mg PO DAILY 01/20/21 01/20/21 torsemide 20 mg PO DAILY 01/20/21 01/20/21 warfarin 2.5 mg PO DAILY 01/20/21 01/20/21 Previous Rx's Medication Instructions Recorded amlodipine 10 mg PO DAILY #30 tab 07/22/19 benzonatate 200 mg PO TID #30 cap 07/22/19 carvedilol [Coreg] 6.25 mg PO BID #60 tab 07/22/19 guaifenesin [Mucinex] 600 mg PO BID #20 tab 07/22/19 losartan 100 mg PO DAILY #30 tab 07/22/19 Allergies Allergy/AdvReac Type Severity Reaction Status Date / Time juan josé Allergy Uncoded 01/20/21 18:38 General YASMINE: 3 Review of Systems All systems reviewed & are unremarkable except as noted in HPI and below Constitutional Constitutional: Reports as per HPI, Denies chills and Denies fever(s) Eyes Eyes: Denies blurry vision ENT Ears, Nose, Mouth, and Throat: Denies dizziness, Denies sore throat and Denies throat swelling Cardiovascular Cardiovascular: Reports chest pain and Reports dyspnea Respiratory Respiratory: Denies cough and Reports dyspnea Gastrointestinal Gastrointestinal: Denies abdominal pain, Denies diarrhea and Denies vomiting Genitourinary Genitourinary: Denies hematuria and Denies dysuria Musculoskeletal Musculoskeletal: Denies back pain and Denies numbness Integumentary/Breasts Skin/Breast: Denies lesions and Denies rash Neurologic Neurologic: Denies dizziness, Denies localized weakness and Denies numbness Allergic/Immunologic Allergic/Immunologic: Denies throat swelling [facility] Medical History Abnormal CT of the abdomen Anxiety disorder Bronchitis, acute, with bronchospasm Chronic kidney disease Depression Enlarged prostate Essential hypertension, benign Hyperlipidemia Hypothyroidism (acquired) Obstructive sleep apnea PTSD (post-traumatic stress disorder) Pulmonary nodules/lesions, multiple Shortness of breath Sleep disturbance Surgical History No pertinent past surgical history Social History Smoking/Tobacco Use Status: Current-Occasional Tobacco Type: cigarettes Smoking packs per day: 0.5 Smoking cigarettes per day: 10.0 Years smoked: 2 Smoking pack-years: 1.00 Smoking risk assessment performed?: Yes Alcohol Intake: former Drug use: Never Substance use type: does not use Do you feel safe at home: Yes Do you feel safe in your relationship?: Yes Exam Const General: cooperative Nutritional Appearance: obese morbidly obese Orientation: alert, awake and oriented x3 HENMT Head: normal to inspection Face and sinus: normal facial exam Eyes General: appearance normal, both eyes and all related structures Pupils: PERRL EOM: EOM intact bilaterally Neck Neck: normal visual inspection and No submandibular swelling Lymphatic: no lymphadenopathy noted Chest Chest: normal inspection of the chest and no tenderness Resp Effort & Inspection: normal respiratory effort, not able to speak in complete sentences and labored Auscultation: clear to auscultation bilaterally Cardio Rate: tachycardic Rhythm: abnormal rhythm irregularly irregular GI Inspection: normal to inspection Palpation: soft, not firm, not rigid and nontender Auscultation: normal bowel sounds Skin General skin exam: no rashes or lesions noted Neuro General: patient alert, patient awake and patient oriented x3 Cognition: normal cognition Speech: speech normal Motor: muscle tone normal throughout Sensory Exam: no sensory deficits noted Extrem General: normal to inspection, full ROM, capillary refill normal, no calf t enderness bilaterally and no edema Psych Appearance: grossly normal Mental Status: mental status grossly normal Speech and Movement: speech and movement normal Affect: normal affect Critical Care Time Critical Care Time Critical Care Time: Yes Total Critical Care Time: 60 Attestation: I spent 120 minutes of critical care time with this patient. This does not include time spent on separately reported billable procedures.
--- NOTE | 2021-01-20 18:45 | DI.RAD_ITS ---
Exam(s) XR PORTABLE CHEST AP EXAM: XR PORTABLE CHEST AP CLINICAL HISTORY: chest pain, sob, r/o acute disease TECHNIQUE: 2D digital imaging was performed. COMPARISON: CR XR CHEST 2V PA LATERAL from 01/11/2019 FINDINGS: MEDIASTINUM: Normal. HEART: Marked cardiomegaly. PULMONARY VASCULATURE: Normal. LUNGS: Bilateral basilar infiltrates. PLEURAL SPACE: No pleural effusion or pneumothorax. BONE:Within normal limits for the patient's age. OTHER FINDINGS:Normal. IMPRESSION: 1. Marked cardiomegaly. 2. Bilateral basilar infiltrates. This may represent edema versus pneumonia. Please correlate clini chris. DATA REPOSITORY: RADIATION DOSE DELIVERED:
[2021-01-20] MEDS: Normal Saline 250 ML IV (19:06)
[2021-01-20] MEDS: Metoprolol 5 MG/5 ML VIAL IVP (19:07)
[2021-01-20 19:19] LABS: Abs Immature Grans 0.25 10^3/uL (0.0-0.06); Absolute Basophil Count 0.05 10^3/uL (0.0-0.2); Absolute Eosinophil Count 0.09 10^3/uL (0.0-0.7); Absolute Lymphocyte Count 0.64 10^3/uL (1.2-3.4); Absolute Monocyte Count 1.76 10^3/uL (0.1-0.8); Basophils % 0.3; Eosinophils % 0.6; HCT 25.3 % (40.0-50.0); HGB 8.3 g/dL (13.5-17.5); Immature Grans % 1.6; Lymphocytes % 4.2; MCH 28.3 pg (27.0-33.0); MCHC 32.8 % (32.0-36.0); MCV 86.3 fL (80-95); MPV 10.7 fL (8.0-11.0); Monocytes % 11.5; Neutrophils % 81.8; Nucleated RBC 0 %; Platelet Count 255 10^3/uL (130-400); RBC 2.93 10^6/uL (4.36-5.78); RDW-SD 43.9 fL; WBC 15.28 10^3/uL (4.4-10.8)
[2021-01-20 19:32] LABS: INR 1.9 (0.9-1.1); PTT Activated 33.2 sec (21.0-27.5)
[2021-01-20 19:35] LABS: Diff Comment Agrees w/ Instrument; RBC Morphology Normal
[2021-01-20 19:36] LABS: ALT 39 U/L (16-63); AST 14 U/L (15-37); Albumin 2.4 g/dL (3.4-5.0); Alkaline Phosphatase 168 U/L (46-116); Anion Gap 20.6 mmol/L (3-11); Bilirubin, Total 0.3 mg/dL (0.2-1.0); CO2 14.4 mmol/L (21.0-32.0); Calcium 8.2 mg/dL (8.5-10.1); Chloride 101 mmol/L (98-107); Estimated GFR 3.78 (mL/min/1.73m2); Glucose 115 mg/dL (74-106); Magnesium 2.1 mg/dL (1.8-2.4); Potassium 4.2 mmol/L (3.5-5.1); Sodium 136 mmol/L (136-145); Total Protein 7.2 g/dL (6.4-8.2)
[2021-01-20 19:37] LABS: BUN 100 mg/dL (7-18)
[2021-01-20 19:38] LABS: CREATININE 14.2 mg/dL (0.70-1.30); Troponin I < 0.05 ng/mL (<0.06)
[2021-01-20] MEDS: dilTIAZem 25 MG/5 ML VIAL 10 MG IVP (19:40)
[2021-01-20 19:41] LABS: NT-proBNP 4057 pg/mL (<300)
--- NOTE | 2021-01-20 20:09 | CMACTNOTE_ITS ---
- If Service Date Differs Date of service: 01/20/21 Time of Service: 20:09 Care Management Activity Note Trevor presents in the ED with chest pain. Dr. Davidson, ED provider, is contemplating transferring Trevor to [facility] for further evaluation and treatment, but Trevor states that he cannot cross state lines as he is on probation. CM is paged and asked to assist. CM contacts the [facility] Probation and [place] office but there is no answer. CM then contacts [facility] Police dispatch and asks if they can contact Probation and [place] on my behalf and have them call me. ZEESHAN then receives a call from Annemarie Koenig, Rag Room Supervisor for the [facility] Probation and [place] office. Annemarie gives verbal permission for Trevor to cross state lines for medical care and asks that he notify her when he gets to [facility] and that he sign a release at [facility] to allow Annemarie to obtain information on his progress. ZEESHAN then calls Dr. Davidson and relays the information.
--- NOTE | 2021-01-20 20:17 | DI.VRAD_ITS ---
PROCEDURE INFORMATION: Exam: XR Chest Exam date and time: 01/20/2021 6:50 PM Age: 45 years old Clinical indication: Shortness of breath; Other: Unspecified; Patient HX: Chest pain, SOB; Additional info: R/O acute disease TECHNIQUE: Imaging protocol: XR of the chest. Views: 1 view. COMPARISON: CT CHEST/ABD/PEL WO 01/13/2021 3:19 AM FINDINGS: Lungs: Pulmonary vascular congestion and interstitial pulmonary edema. Bilateral lower lobe infiltrates. Pleural spaces: Unremarkable. No pleural effusion. No pneumothorax. Heart/Mediastinum: Marked cardiomegaly. Bones/joints: Unremarkable. IMPRESSION: 1. Marked cardiomegaly. Pulmonary vascular congestion and interstitial pulmonary edema suggestive of congestive heart failure. 2. Superimposed bilateral lower lobe pneumonias cannot be excluded. Dictated and Authenticated by: Estela Martínez MD. Ordering:ARJUN Mcgovern MD
[2021-01-20 20:21] LABS: BE (Venous) -14 mmol/L (-2-3); HCO3 (Venous) 13 mmol/L (23-28); O2 Sat (Venous) 92 %; TCO2 (Venous) 13 mmol/L (24-29); pCO2 (Venous) 29 mmHg (41-51); pH (Venous) 7.25 (7.31-7.41); pO2 (Venous) 66 mmHg
[2021-01-20 21:17] LABS: Lactate 0.6 mmol/L (0.6-1.4)
[2021-01-20] MEDS: PIPERACILLIN/TAZO 3.375 GM in Normal Saline 50 ML IVPB (21:26)
[2021-01-20] MEDS: dilTIAZem 25 MG/5 ML VIAL 15 MG IVP (21:27)
[2021-01-20 21:35] LABS: Source Nasal/Nares
--- NOTE | 2021-01-20 22:40 | W.MEDCONSULT ---
Date of service: 01/20/21 Time of Service: 22:41 Assessment and Plan Assessment and plan (1) SOB (shortness of breath): Status: Acute Assessment and plan: Multiple intersecting issues leading to SOB which I believe is largely on the basis of volume overload. I believe the primary factor is renal failure, manifesting with pulmonary edema and progressive acidosis, exacerbated by AF with RVR (I do not have data on underlying cardiac function). Worsening anemia is likely also contributing. The overall picture is not suggestive of pneumonia but at this point I cannot entirely exclude. The CP per se is of unknown etiology, though no STEMI/NSTEMI; new onset angina possible, and should probably have stress test. By report from [facility] PE appears to have been ruled out. I feel this patient would be best cared for at a tertiary center with HD capability and we do not have the resources required. History of Present Illness History of Present Illness Chief Complaint: SOB Narrative: 45 male with morbid obesity, chronic renal failure though not on HD, AF -- was seen here last week with c/o of SOB and CP, with findings at that time of FRANCY with creatinine 10 and elevated d-Dimer. Unable to perform CTA due to renal function. R/o'ed for GA by enzymes. Was transferred on second hospital day to [facility] where report is he had negative V/Q scan and neg U/S LEs. Was sent home 2 days ago on rate control regimen for AF as well as Coumadin. Returns here [facility] reporting ongoing SOB, along with orthopnea, and persistent CP for over 9 days now. W/u here of note for no fever, white count 15, HCT 25 (down from 29) creatinine 14, K 4.2, HCO3 14 (down from 19), pH 7.25, BNP 4057 (up from 3300), CXR showing cardiomegaly and CHF vs basilar pneumonia (to my read mild pulmonary edema), neg trop and non ischemic EKG with AF/RVR. Has received MS, Juan Pablo, Cardithania, Karol and Zosyn. I was asked to evaluate for admission. [facility] Medical History Abnormal CT of the abdomen Anxiety disorder Bronchitis, acute, with bronchospasm Chronic kidney disease Depression Enlarged prostate Essential hypertension, benign Hyperlipidemia Hypothyroidism (acquired) Obstructive sleep apnea PTSD (post-traumatic stress disorder) Pulmonary nodules/lesions, multiple Shortness of breath Sleep disturbance Surgical History No pertinent past surgical history Social History Smoking/Tobacco Use Status: Current-Occasional Tobacco Type: cigarettes Smoking packs per day: 0.5 Smoking cigarettes per day: 10.0 Years smoked: 2 Smoking pack-years: 1.00 Smoking risk assessment performed?: Yes Alcohol Intake: former Drug use: Never Substance use type: does not use Do you feel safe at home: Yes Do you feel safe in your relationship?: Yes Exam Narrative Exam Narrative: 107/64, 113, 37.4, 34, 95% RA. HEENT atraumatic; neck supple, cannot read JVP; lungs clear, heart distant, irr/irr; abdomen obese, soft, NT;rectal heme negative; extremities mixed [id number] and lymphedema; neuro Ox3, moves all 4s Results Last Vital Signs Temp 37.4 C 01/20/21 18:35 Pulse 83 01/20/21 21:47 Resp 34 H 01/20/21 21:50 BP 107/64 01/20/21 21:47 Pulse Ox 95 01/20/21 21:50 Labs Result diagrams: 01/20/21 19:05 01/20/21 19:05 Labs: Laboratory Results - last 24 hr 01/20/21 01/20/21 01/20/21 19:05 19:05 19:05 WBC 15.28 H RBC 2.93 L Hgb 8.3 L Hct 25.3 L MCV 86.3 MCH 28.3 MCHC 32.8 RDW 14.0 Plt Count 255 MPV 10.7 Immature Gran % 1.6 Neutrophils % 81.8 Lymphocytes % 4.2 Monocytes % 11.5 Eosinophils % 0.6 Basophils % 0.3 Nucleated RBC % 0 Absolute Neutrophils 12.50 H Absolute Lymphocytes 0.64 L Absolute Monocytes 1.76 H Absolute Eosinophils 0.09 Absolute Basophils 0.05 RBC Morphology Normal PT 19.0 H D INR 1.9 H D APTT 33.2 H ABG Sample Site ABG pH ABG pCO2 ABG pO2 ABG HCO3 ABG Total CO2 ABG O2 Saturation ABG Base Excess VBG pH VBG pCO2 VBG pO2 VBG HCO3 VBG Total CO2 VBG O2 Saturation VBG Base Excess VBG Lactate Oxygen Liter Flow FiO2 Sodium 136 Potassium 4.2 Chloride 101 Carbon Dioxide 14.4 L Anion Gap 20.6 H BUN 100 H* Creatinine 14.2 H* Estimated GFR/1.73 m2 3.78 Glucose 115 H Calcium 8.2 L Magnesium 2.1 Total Bilirubin 0.3 AST 14 L ALT 39 Alkaline Phosphatase 168 H Troponin I < 0.05 NT-Pro-B Natriuret Pep Total Protein 7.2 Albumin 2.4 L COVID-19 Source 01/20/21 01/20/21 01/20/21 19:05 20:05 20:17 WBC RBC Hgb Hct MCV MCH MCHC RDW Plt Count MPV Immature Gran % Neutrophils % Lymphocytes % Monocytes % Eosinophils % Basophils % Nucleated RBC % Absolute Neutrophils Absolute Lymphocytes Absolute Monocytes Absolute Eosinophils Absolute Basophils RBC Morphology PT INR APTT ABG Sample Site Cancelled ABG pH Cancelled ABG pCO2 Cancelled ABG pO2 Cancelled ABG HCO3 Cancelled ABG Total CO2 Cancelled ABG O2 Saturation Cancelled ABG Base Excess Cancelled VBG pH 7.25 L VBG pCO2 29 L VBG pO2 66 VBG HCO3 13 L VBG Total CO2 13 L VBG O2 Saturation 92 VBG Base Excess -14 L VBG Lactate Oxygen Liter Flow Cancelled FiO2 Cancelled Sodium Potassium Chloride Carbon Dioxide Anion Gap BUN Creatinine Estimated GFR/1.73 m2 Glucose Calcium Magnesium Total Bilirubin AST ALT Alkaline Phosphatase Troponin I NT-Pro-B Natriuret Pep 4057 H Total Protein Albumin COVID-19 Source 01/20/21 01/20/21 20:53 21:25 WBC RBC Hgb Hct MCV MCH MCHC RDW Plt Count MPV Immature Gran % Neutrophils % Lymphocytes % Monocytes % Eosinophils % Basophils % Nucleated RBC % Absolute Neutrophils Absolute Lymphocytes Absolute Monocytes Absolute Eosinophils Absolute Basophils RBC Morphology PT INR APTT ABG Sample Site ABG pH ABG pCO2 ABG pO2 ABG HCO3 ABG Total CO2 ABG O2 Saturation ABG Base Excess VBG pH VBG pCO2 VBG pO2 VBG HCO3 VBG Total CO2 VBG O2 Saturation VBG Base Excess VBG Lactate 0.6 Oxygen Liter Flow FiO2 Sodium Potassium Chloride Carbon Dioxide Anion Gap BUN Creatinine Estimated GFR/1.73 m2 Glucose Calcium Magnesium Total Bilirubin AST ALT Alkaline Phosphatase Troponin I NT-Pro-B Natriuret Pep Total Protein Albumin COVID-19 Source Nasal/nares
[2021-01-21] VITALS (111 sets, daily range): BP systolic 58–144; BP diastolic 31–111; PULSE 56–141; RESP 10–50; TEMP 36.6; O2SAT 86–97
[2021-01-21 00:03] LABS: Bilirubin Negative (Negative); Blood Small (Negative); Clarity Sl Cloudy (Clear); Glucose Negative (Negative); Ketones Negative (Negative); Leukocyte Esterase Trace (Negative); Nitrite Negative (Negative); Specific Gravity 1.025 (1.005-1.025); Urobilinogen 0.2 EU/dL (Up TO 0.2); pH 5.5 (5-8)
[2021-01-21 00:08] LABS: Bacteria Few HPF (Negative); Epithelial Cells Few HPF (Negative)
[2021-01-21 00:09] LABS: C & S Indicated? Yes; Casts Negative LPF (Negative); Crystals Moderate Amorphous HPF (Negative); Mucus Negative (Negative)
[2021-01-21] MEDS: Furosemide 100 MG/10 ML VIAL 160 MG IVP (01:05)
[2021-01-21] MEDS: dilTIAZem 125 MG in Normal Saline 100 ML IV (01:11)
[2021-01-21] MEDS: Nicotine 21 MG/24 HR PATCH TD (03:21)
[2021-01-21] MEDS: VANCOMYCIN 2,000 MG in Normal Saline 500 ML 250 MG IVPB (05:04)
[2021-01-21] MEDS: QUEtiapine 100 MG TAB 200 MG PO (05:05)
[2021-01-21 06:10] LABS: HCT 24.7 % (40.0-50.0); HGB 7.8 g/dL (13.5-17.5); MCHC 31.6 % (32.0-36.0); MCV 88.5 fL (80-95); MPV 10.5 fL (8.0-11.0); Platelet Count 249 10^3/uL (130-400); RBC 2.79 10^6/uL (4.36-5.78); RDW-SD 45.5 fL; WBC 15.24 10^3/uL (4.4-10.8)
[2021-01-21 06:20] LABS: INR 3.1 (0.9-1.1); Prothrombin Time 29.9 sec (9.3-11.0)
[2021-01-21 06:25] LABS: Anion Gap 20.7 mmol/L (3-11); CO2 14.3 mmol/L (21.0-32.0); Calcium 8.3 mg/dL (8.5-10.1); Chloride 101 mmol/L (98-107); Estimated GFR 3.63 (mL/min/1.73m2); Glucose 123 mg/dL (74-106); Potassium 4.4 mmol/L (3.5-5.1); Sodium 136 mmol/L (136-145)
[2021-01-21 06:31] LABS: CREATININE 14.7 mg/dL (0.70-1.30)
[2021-01-21 06:32] LABS: BUN 105 mg/dL (7-18); Troponin I < 0.05 ng/mL (<0.06)
[2021-01-21] MEDS: Lidocaine 2% Jelly 11 ML SYR UR (08:00)
[2021-01-21] MEDS: Furosemide 100 MG/10 ML VIAL 200 MG IVP (08:00)
[2021-01-21] MEDS: MORPHine 10 MG/ML VIAL (08:29)
[2021-01-21] MEDS: LORazepam 2 MG/ML VIAL (08:30)
[2021-01-21] MEDS: Normal Saline Flush 10 ML SYR IVP (08:30)
[2021-01-21 08:48] LABS: COVID-19 PCR Negative (Negative)
--- NOTE | 2021-01-21 08:50 | INITIAL_ITS ---
- If Service Date Differs Date of service: 01/21/21 Time of Service: 08:51 Care Management Initial Assess REASON FOR HOSPITALIZATION:: SOB PAST MEDICAL HISTORY/PAST SURGICAL HISTORY:: Medical History . Abnormal CT of the abdomen. Anxiety disorder. Bronchitis, acute, with bronchospasm. Chronic kidney disease. Depression. Enlarged prostate. Essential hypertension, benign. Hyperlipidemia. Hypothyroidism (acquired). Obstructive sleep apnea. PTSD (post-traumatic stress disorder). Pulmonary nodules/lesions, multiple. Shortness of breath. Sleep disturbance. Surgical History . No pertinent past surgical history PREVIOUS FUNCTIONAL STATUS/SOCIAL/FAMILY SUPPORTS:: Trevor lives in [place], [place] He has a sister and his father who are in [place]. CURRENT FUNCTIONAL STATUS:: Trevor remains in the ICU being closely monitored. He will be transferred to [facility] later today via ambulance or helicopter or ambulance and was intubated in preparation for the transfer. CM unable to converse with him. ADVANCE DIRECTIVES:: none on file Has patient been provided with info about the portal/API?: Yes Did the patient sign up for the portal?: No CODE STATUS:: Full Code INSURANCE COVERAGE / FINANCIAL ISSUES:: Medicaid PRIMARY CARE PHYSICIAN:: Michelle Park POTENTIAL DISCHARGE NEEDS:: Follow up with PCP and discharge plan PATIENT/FAMILY EDUCATION NEEDS:: Review discharge instructions, limitations, medications, follow up plan, Ask Me Three TRANSPORTATION:: alfie via ambulance since he needs to be transferred PLAN:: Trevor will be transferred to [facility] later today. He will transport via ambulance coordinated by nursing supervisor aircraft cleaning and follow up with their providers. CM will continue to support patient and discharge concerns.
[2021-01-21] MEDS: buPROPion-CR 100 MG TABCR PO (09:05)
[2021-01-21] MEDS: amLODIPine 10 MG TAB PO (09:05)
[2021-01-21] MEDS: hydrALAZINE 10 MG TAB PO (09:06)
[2021-01-21] MEDS: Sodium Bicarbonate 650 MG TAB PO (09:06)
[2021-01-21] MEDS: Metoprolol CR 100 MG TABCR PO (09:06)
[2021-01-21] MEDS: metOLazone 2.5 MG TAB 5 MG PO (09:06)
--- NOTE | 2021-01-21 09:18 | W.PM.PROGNOT ---
Date of Service Date of service: 01/21/21 Time of Service: 09:18 Assessment and Plan Assessment and plan (1) Acute hypoxemic respiratory failure: Status: Acute Assessment and plan: secondary to rapid afib and ESRD; ACS ruled out by neg. troponin I levels. Can not exclude pericardial tamponade but he has at least a moderate pericardial effusion. He has hx of ASHKAN and probably has PHTN. He may have chronic CHF from HTN or from ESRD. At present he has been stabilized w/ NIPPV and w/ control of his afib rate. He is not making urine from the lasix boluses (160 mg last night in the ER and 200 mg this morning in addition to lasix drip). At present he needs hemodialyis for fluid removal. He may or may not need cardiology to perform pericardiocentesis. For the trip to [facility], patient will be preemptively intubated as the journey is nearly a 2hr ground trip to [place], [place]. (2) Acute CHF: Status: Acute Assessment and plan: cont. NIPPV and diltiazem drip for afib. lasix drip has not done anything despite large bolues and addition of zaroxolyn Qualifiers: Heart failure type: unspecified Qualified Code(s): I50.9 - Heart failure, unspecified (3) Atrial fibrillation with rapid ventricular response: Status: Acute Assessment and plan: cont. diltiazem drip (4) Acute kidney injury superimposed on chronic kidney disease: Status: Acute Assessment and plan: unclear as to the etiology of his CKD but clearly this ESRD and needs hemodialysis (5) Acute on chronic anemia: Status: Acute (6) COVID-19 ruled out by laboratory testing: Status: Ruled-out Assessment and plan: SARS-CoV2 PCR was negative Subjective Subjective Interval history since last seen: 45 y.o. white male w/ PMH of HTN, HLD, hypothyroidism, ASHKAN (wears CPAP @ home), recently hospitalized at [facility] after transfer from [facility] on 01/13 d/t acute dyspnea for which he was ruled out for PE. Because he has CKD he could not have a CTA and workup at [facility] reportedly included negative V/Q study and neg. venous duplex of his legs. However he was dx w/ afib. He now presented last night w/ progressive dyspnea since he was discharged from [facility] last week. He was found to be in rapid afib and put on diltiazem drip. He was given lasix 160 mg IVP last night w/ little urine output. No dan was put in last night. Dr. Davidson, ER attending, called multiple tertiary care centers and none were able to accept this patient last night. See ER notes for details. This morning patient was in acute respiratory distress, tripoding, sitting on side of bed, tachypneic and tachycardic w/ afib rate in the 130's to 140's. Patient was placed on CPAP 10 cm and FIO2 28% and was sedated w/ ativan 2 mg IVP and morphine 5 mg IVP. He was given lasix 200 mg IVP and put on lasix drip at 10 mg/hr. Dan was placed and he had only 50 mL in his bladder. Since placement of the dan he has had only 100 mL total (including the 50 mL initially w/ placement of the dan). I did a POCUS exam of his heart which was technically difficult d/t his obese body habitus and his respiratory distress. Per my impression he has relatively normal looking LV function but he has evidence of RV pressure and volume overload w/ D shaped deformity however there is moderate pericardial effusion but I could not discern whether or not there is tamponade physiology. A formal echo has been ordered and performed but reading is pending at this time. I called [facility] transfer center to discuss transfer as I understood he was accepted but no bed was available last night and they did not feel the need for urgent transfer last night (see ER documentation). This morning I spoke w/ the hospitalist who upon review of the case agrees w/ my assessment for need for urgent transfer and the need for ICU level of care. I then spoke w/ the platen press operator apprentice, Dr. Becki Ward who has accepted the patient. I am awaiting echo results, however since I medicated the patient and given him CPAP his respirations are much improved and he is not breathless and not using accesssory respiratory muscles and he is able to lie back in bed in upright 60 degree position. [facility] is not able to fly him to [facility] d/t his weight therefore we will contact [facility] critical care ground transport. Exam Narrative Exam Narrative: Morbidly obese male who initially was in respiratory distress, tripod position when I first met him early this am diaphoretic, tachypneic and tachycardic but now he is relaxed, breathing much easier and able to talk in complete sentences despite the CPAP mask obese neck, not able to discern JVD, normal carotid pulses other than irregular d/t afib Chest: barrel chest w/ multiple skin lesions (he states that he picks at his skin), no chest wall deformity and no crepitus or asymmetry LUngs: diffuse rales and expiratory wheezes; since going on CPAP his lung sounds have improved heart: no appreciated murmur; but irregularly irregular; no rub Abdomen: obese, soft, nontender; mild distension w/ no guarding or rebound tenderness Legs: obese but no pitting edema Objective Last Vital Signs Temp 36.6 C 01/21/21 03:41 Pulse 71 01/21/21 08:11 Resp 24 01/21/21 08:11 BP 86/54 L 01/21/21 05:02 Pulse Ox 95 01/21/21 08:11 Laboratory Results - last 24 hr 01/20/21 01/20/21 01/20/21 19:05 19:05 19:05 WBC 15.28 H RBC 2.93 L Hgb 8.3 L Hct 25.3 L MCV 86.3 MCH 28.3 MCHC 32.8 RDW 14.0 Plt Count 255 MPV 10.7 Immature Gran % 1.6 Neutrophils % 81.8 Lymphocytes % 4.2 Monocytes % 11.5 Eosinophils % 0.6 Basophils % 0.3 Nucleated RBC % 0 Absolute Neutrophils 12.50 H Absolute Lymphocytes 0.64 L Absolute Monocytes 1.76 H Absolute Eosinophils 0.09 Absolute Basophils 0.05 RBC Morphology Normal PT 19.0 H D INR 1.9 H D APTT 33.2 H ABG Sample Site ABG pH ABG pCO2 ABG pO2 ABG HCO3 ABG Total CO2 ABG O2 Saturation ABG Base Excess VBG pH VBG pCO2 VBG pO2 VBG HCO3 VBG Total CO2 VBG O2 Saturation VBG Base Excess VBG Lactate Oxygen Liter Flow FiO2 Sodium 136 Potassium 4.2 Chloride 101 Carbon Dioxide 14.4 L Anion Gap 20.6 H BUN 100 H* Creatinine 14.2 H* Estimated GFR/1.73 m2 3.78 Glucose 115 H Calcium 8.2 L Magnesium 2.1 Total Bilirubin 0.3 AST 14 L ALT 39 Alkaline Phosphatase 168 H Troponin I < 0.05 NT-Pro-B Natriuret Pep Total Protein 7.2 Albumin 2.4 L Urine Color Urine Clarity Urine pH Ur Specific Ely Urine Protein Urine Ketones Urine Blood Urine Nitrite Urine Bilirubin Urine Urobilinogen Ur Leukocyte Esterase Urine RBC Urine WBC Ur Epithelial Cells Urine Crystals Urine Bacteria Urine Casts Urine Mucus Ur Culture Indicated? Urine Glucose COVID-19 Source SARS-CoV-2 (PCR) 01/20/21 01/20/21 01/20/21 19:05 20:05 20:17 WBC RBC Hgb Hct MCV MCH MCHC RDW Plt Count MPV Immature Gran % Neutrophils % Lymphocytes % Monocytes % Eosinophils % Basophils % Nucleated RBC % Absolute Neutrophils Absolute Lymphocytes Absolute Monocytes Absolute Eosinophils Absolute Basophils RBC Morphology PT INR APTT ABG Sample Site Cancelled ABG pH Cancelled ABG pCO2 Cancelled ABG pO2 Cancelled ABG HCO3 Cancelled ABG Total CO2 Cancelled ABG O2 Saturation Cancelled ABG Base Excess Cancelled VBG pH 7.25 L VBG pCO2 29 L VBG pO2 66 VBG HCO3 13 L VBG Total CO2 13 L VBG O2 Saturation 92 VBG Base Excess -14 L VBG Lactate Oxygen Liter Flow Cancelled FiO2 Cancelled Sodium Potassium Chloride Carbon Dioxide Anion Gap BUN Creatinine Estimated GFR/1.73 m2 Glucose Calcium Magnesium Total Bilirubin AST ALT Alkaline Phosphatase Troponin I NT-Pro-B Natriuret Pep 4057 H Total Protein Albumin Urine Color Urine Clarity Urine pH Ur Specific Ely Urine Protein Urine Ketones Urine Blood Urine Nitrite Urine Bilirubin Urine Urobilinogen Ur Leukocyte Esterase Urine RBC Urine WBC Ur Epithelial Cells Urine Crystals Urine Bacteria Urine Casts Urine Mucus Ur Culture Indicated? Urine Glucose COVID-19 Source SARS-CoV-2 (PCR) 01/20/21 01/20/21 01/20/21 20:53 21:25 23:55 WBC RBC Hgb Hct MCV MCH MCHC RDW Plt Count MPV Immature Gran % Neutrophils % Lymphocytes % Monocytes % Eosinophils % Basophils % Nucleated RBC % Absolute Neutrophils Absolute Lymphocytes Absolute Monocytes Absolute Eosinophils Absolute Basophils RBC Morphology PT INR APTT ABG Sample Site ABG pH ABG pCO2 ABG pO2 ABG HCO3 ABG Total CO2 ABG O2 Saturation ABG Base Excess VBG pH VBG pCO2 VBG pO2 VBG HCO3 VBG Total CO2 VBG O2 Saturation VBG Base Excess VBG Lactate 0.6 Oxygen Liter Flow FiO2 Sodium Potassium Chloride Carbon Dioxide Anion Gap BUN Creatinine Estimated GFR/1.73 m2 Glucose Calcium Magnesium Total Bilirubin AST ALT Alkaline Phosphatase Troponin I NT-Pro-B Natriuret Pep Total Protein Albumin Urine Color Yellow Urine Clarity Sl cloudy Urine pH 5.5 Ur Specific Ely 1.025 Urine Protein >=300 H Urine Ketones Negative Urine Blood Small H Urine Nitrite Negative Urine Bilirubin Negative Urine Urobilinogen 0.2 Ur Leukocyte Esterase Trace H Urine RBC 3-5 H Urine WBC 3-5 Ur Epithelial Cells Few Urine Crystals Moderate amorphous Urine Bacteria Few Urine Casts Negative Urine Mucus Negative Ur Culture Indicated? Yes Urine Glucose Negative COVID-19 Source Nasal/nares SARS-CoV-2 (PCR) Negative 01/21/21 01/21/21 01/21/21 06:00 06:00 06:00 WBC 15.24 H RBC 2.79 L Hgb 7.8 L Hct 24.7 L MCV 88.5 MCH 28.0 MCHC 31.6 L RDW 14.0 Plt Count 249 MPV 10.5 Immature Gran % Neutrophils % Lymphocytes % Monocytes % Eosinophils % Basophils % Nucleated RBC % Absolute Neutrophils Absolute Lymphocytes Absolute Monocytes Absolute Eosinophils Absolute Basophils RBC Morphology PT 29.9 H D INR 3.1 H D APTT ABG Sample Site ABG pH ABG pCO2 ABG pO2 ABG HCO3 ABG Total CO2 ABG O2 Saturation ABG Base Excess VBG pH VBG pCO2 VBG pO2 VBG HCO3 VBG Total CO2 VBG O2 Saturation VBG Base Excess VBG Lactate Oxygen Liter Flow FiO2 Sodium 136 Potassium 4.4 Chloride 101 Carbon Dioxide 14.3 L Anion Gap 20.7 H BUN 105 H* Creatinine 14.7 H* Estimated GFR/1.73 m2 3.63 Glucose 123 H Calcium 8.3 L Magnesium Total Bilirubin AST ALT Alkaline Phosphatase Troponin I NT-Pro-B Natriuret Pep Total Protein Albumin Urine Color Urine Clarity Urine pH Ur Specific Ely Urine Protein Urine Ketones Urine Blood Urine Nitrite Urine Bilirubin Urine Urobilinogen Ur Leukocyte Esterase Urine RBC Urine WBC Ur Epithelial Cells Urine Crystals Urine Bacteria Urine Casts Urine Mucus Ur Culture Indicated? Urine Glucose COVID-19 Source SARS-CoV-2 (PCR) 01/21/21 06:00 WBC RBC Hgb Hct MCV MCH MCHC RDW Plt Count MPV Immature Gran % Neutrophils % Lymphocytes % Monocytes % Eosinophils % Basophils % Nucleated RBC % Absolute Neutrophils Absolute Lymphocytes Absolute Monocytes Absolute Eosinophils Absolute Basophils RBC Morphology PT INR APTT ABG Sample Site ABG pH ABG pCO2 ABG pO2 ABG HCO3 ABG Total CO2 ABG O2 Saturation ABG Base Excess VBG pH VBG pCO2 VBG pO2 VBG HCO3 VBG Total CO2 VBG O2 Saturation VBG Base Excess VBG Lactate Oxygen Liter Flow FiO2 Sodium Potassium Chloride Carbon Dioxide Anion Gap BUN Creatinine Estimated GFR/1.73 m2 Glucose Calcium Magnesium Total Bilirubin AST ALT Alkaline Phosphatase Troponin I < 0.05 NT-Pro-B Natriuret Pep Total Protein Albumin Urine Color Urine Clarity Urine pH Ur Specific Ely Urine Protein Urine Ketones Urine Blood Urine Nitrite Urine Bilirubin Urine Urobilinogen Ur Leukocyte Esterase Urine RBC Urine WBC Ur Epithelial Cells Urine Crystals Urine Bacteria Urine Casts Urine Mucus Ur Culture Indicated? Urine Glucose COVID-19 Source SARS-CoV-2 (PCR)
--- NOTE | 2021-01-21 09:41 | DI.US_ITS ---
APPROVED REPORT EXAM: Comprehensive 2D, Doppler, and color-flow Echocardiogram Patient Location: In-Patient Room/Bed: ICU Road Engineer Freight: Sylvia Max RDCS (AE) Indications: CHF, A FIB,Pericardial effusion, R/O Tamonade Other Information Study Quality: Technically Limited. Technically limited study due to body habitus, inability to posit ion patient. Conclusion Left Ventricle : The left ventricle is normal size. Left ventricular systolic function is borderline. Borderline concentric left ventricular hypertrophy. There is normal LV segmental wall motion. LVEF i s 50-55%. Right Ventricle : The right ventricle is normal size. The right ventricular systolic function is norm al. There is no evidence of RV collapse or ventricular interdependence. Atria : The left atrium size is normal. The right atrium size is normal. Valves: There are no hemodynamically significant valvular lesions. Great Vessels : The aortic root is normal in size. The ascending aorta is mildly dilated. The IVC col lapses <50% with normal respirtation. Pericardium : Moderate circumferential pericardial effusion. Difficult to evaluate mitral and tricus pid inflows given arrhythmia and tachycardia as well as technically difficult study. No clear eviden ce of tamponade. See remainder of study for further details. Wall motion Left Ventricle The left ventricle is normal size. Left ventricular systolic function is borderline. Borderline emilio ntric left ventricular hypertrophy. There is normal LV segmental wall motion. There is no ventricular septal defect visualized. LVEF is 50-55%. Right Ventricle The right ventricle is normal size. The right ventricular systolic function is normal. Atria The left atrium size is normal. The right atrium size is normal. The interatrial septum is intact wit h no evidence for an atrial septal defect. Aortic Valve The aortic valve is normal in structure. Aortic valve is trileaflet. There is no aortic valvular sten osis. No aortic regurgitation is present. Mitral Valve The mitral valve is normal in structure. No evidence of mitral valve stenosis. Trace mitral regurgita tion. Tricuspid Valve The tricuspid valve is normal in structure. There is no tricuspid valve stenosis. Trace tricuspid reg urgitation. Unable to assess PA pressure. Pulmonic Valve The pulmonary valve is normal in structure. There is no pulmonic valvular stenosis. There is no pulmo graciela valvular regurgitation. Great Vessels The aortic root is normal in size. The ascending aorta is mildly dilated. The IVC collapses <50% with normal respirtation. Pericardium Moderate circumferential pericardial effusion. 2D Dimensions IVSD d PLAX 1.27 cm M: 0.6-1.2 LV Vol A2C d MOD 142.1 mL LVPW d PLAX 1.28 cm M: 0.6 - 1.2 LV Vol A4C d MOD 141.5 mL LVID d PLAX 5.17 cm M: 4.2 - 5.8 LA vol/ BSA A2C s A-L 34.0 mL/m2 LVDs 3.55 cm M: 2.5 - 4.0 LA vol/ BSA A4C s A-L 28.0 mL/m2 Ao Root d 3.29 cm M: 3.1 - 3.7 LA Vol/ BSA Biplane s A-L 31.1 mL/m2 RA Area A4C 22.04 cm2 LA Area A4C s MOD 26.24 cm2 RA Vol/ BSA A4C s A-L 22.6 mL/m2 LA Area A2C s MOD 29.17 cm2 Ao Asc Diam d 3.50 cm M: 2.6 - 3.4 LV EF A4C MOD 49.7 % LV EF Teichholz 57.5 % LV EF A2C MOD 55.8 % LVEF (Irene's) 51.36 % M: 52 - 72 LV EF Biplane MOD 51.4 % LV Volume 98.85 mL M: 62 - 150 SV 75.46 mL LV Volume Index 34.20 mL/m2 M: 34 - 74 SV Index 26.08 mL/m2 LV Vol Biplane MOD 146.9 mL FS 30.40 % M-Mode TAPSE 2.09 cm (M/F) >1.7 LV Diastology MV E' medial 0.037 (>0.07 m/s) MV E Vmax 0.81 (0.4-1.3 m/s) LV E/e MED 22.15 (<14) MV E' lateral 0.042 (>0.1 m/s) LV E/e LAT 19.55 (<14) MV E/E' medial 22.19 MV E/E' lateral 19.58 Aortic Valve LVOT Area 4.14 cm2 LVOT Vmax 1.22 m/s LVOT Mean Bryon. 1.04 m/s LVOT Peak Grad 5.9 mmHg LVOT Mean Grad 4.5 mmHg LVOT VTI 0.173 m LVOT Diam s 2.25 cm AoV Vmax 1.55 m/s Velocity Ratio 0.78 AoV Mean Bryon. 1.12 m/s AoV Peak Grad 9.6 mmHg AoV Mean Grad 5.4 mmHg AoV VTI 0.222 m Mitral Valve MV DT 243 (160-240 msec) MV PHT 71 msec MV Area PHT 3.12 cm2 MV VTI 0.149 m Pulmonary Valve PV Vmax 0.63 (0.5-1.5 m/s) RVOT Peak Gr. 3.01 mmHg PV Peak Grad 1.6 mmHg RVOT Mean Gr. 2.10 mmHg PV Mean Grad 1.1 mmHg RVOT VTI 0.146 m PV VTI 0.124 m RVOT Vmax 0.87 m/s
--- NOTE | 2021-01-21 13:18 | DSE_ITS ---
DS: Diagnosis Discharge Diagnosis (1) Acute hypoxemic respiratory failure: Status: Acute Asessment and Plan: secondary to acute CHF d/t ESRD and rapid afib. ACS ruled out by negative troponin I levels. Patient refractory to lasix boluses and lasix drip and oral zaroxolyn. Patient has underlying ASHKAN and HTN but no known CAD or valvular heart disease. At time of discharge echo report was pending but on bedside POCUS mod. pericardial effusion was seen and signs of RV pressure and volume overload was seen and LV function appeared to be preserved. CXR c/w pulmonary edema and BNP was elevated at 4000 c/w CHF. Patient was stabilized w/ NIPPV CPAP and given morphine and ativan for sedation. Patient was pre-emptively intubated prior to transport to [facility]. Patient has been accepted to [facility] MICU to Dr. Becki Ward. Patient needs urgent hemodialysis to control his intravascular volume. (2) Acute CHF: Status: Acute Asessment and Plan: as above. patient may have chronic HFPEF as well. However this is to be determined once he is out of acute CHF. he will needs further evaluation for ischemic disease, amyloid, hypertensive cardiomyopathy, PHTN from ASHKAN, etc. Further cardiology workup to be performed at [facility] (3) Atrial fibrillation with rapid ventricular response: Status: Acute Asessment and Plan: patient has been recently started on carvedilol and coumadin for afib but presented in acute chf and rapid afib. rate has responded to diltiazem drip. (4) Acute kidney injury superimposed on chronic kidney disease: Status: Acute Asessment and Plan: I am not sure whether his was an acute kidney injury or just progression of his CKD to ESRD. further evalution to be done by nephrology at [facility] (5) Acute on chronic anemia: Status: Acute (6) COVID-19 ruled out by laboratory testing: Status: Ruled-out Asessment and Plan: patient is unvaccinated for SARS-COV2 but has tested negative per nasopharyngeal PCR last night. Discharge Plan Disposition Patient Disposition: JANSEN ALLEN ([facility]) Condition: Critical Discharge Details Reason For Visit: SOB Admit Date/Time: 01/20/21 23:41 Admit Provider: Scar Dodson Attending Provider: Scar Dodson Primary Care Provider: Michelle Park Hospital Course Hospital Course: 45-year-old white male with a history of morbid obesity, tension, hyperlipidemia, hypothyroidism, chronic kidney disease who was recently transferred from here to the [facility] with acute kidney injury on CKD and was being evaluated for acute dyspnea and was ruled out for PE. He had negative VQ scan and negative symptoms duplex scan of his legs by [facility]. While at [facility] he was diagnosed with atrial fibrillation and started on carvedilol and warfarin. In the last week since he has been discharged she has had progressive dyspnea and arrives to the emergency department in rapid atrial fibrillation heart rate in the 130s. EKG showed no STEMI. Respirations were labored. Patient was placed on supplemental oxygen and started on a Cardizem drip. Admission labs remarkable for white cell count of 15,000 as well as anemia with hemoglobin 8.3 g. His INR was 1.9 and his BUN was 114, CO2 14, AG 20, K+ 4.2. His proBNP was 4000. Serial troponin I levels less than 0.05. Dr. Shaniqua Davidson emergency room physician discussed his case with [facility] nephrology as well as the hospitalist service with Dr. Yepez. While the patient was accepted for transfer to [facility]. Did not have any beds last night. Because of his end- stage renal disease and acute pulmonary edema demonstrated by his chest x-ray elevated proBNP was felt he would be best served to be transferred to a tertiary care center last night for urgent hemodialysis. Dr. Davidson spoke with number of tertiary care centers around [place] including [facility], [facility], [facility] and women's [facility], [facility], [facility], [facility]. None of these hospital we would receive the patient. Per Dr. Davidson's discussion with nephrology from [facility] last night they recommended trial of Lasix. He was given 160 mg of Lasix last night with no effect. He was started on a Cardizem drip and admitted to our intensive care unit. I received signout this morning from Dr. Dodson the admitting propeller layout worker. I understood that the patient was tentatively accepted for [facility] once beds became available. Shortly after signout I was called to the medical intensive care unit because the patient was in acute respiratory distress tachypneic in the 30s in tripod position and diaphoretic and tachycardic in the 140s in atrial fibrillation. Patient was placed on CPAP 10 cm 20% to 5 mg of morphine and 4 mg sedation. In case of needing to urgently intubate him his respirations calm down he was able to accept the CPAP mask his pulse oximetry went from the mid 80s to the mid 90s. Respirations became labored and he was given 200 mg of IV Lasix and started on Lasix drip at 10 mg/h. Dan catheter had not been placed last night and I had the nurse insert a Dan catheter. He had 50 mL immediate return of clear yellow urine that over the course of the morning only without another 50 mL. I called the transfer center at [facility] and discussed his case with hospitalist. Patient is needed ICU level care and then referred me to Dr. Becki Ward, natural resources engineer who accepted the patient in transfer. Dr. Ward recommended preemptively intubating the patient for transfer. [facility] was consulted because of the patient's weight they could not take him. [facility] ground mobile ICU was consulted for transport. Anesthesia was consulted for preemptive intubation. Patient was successfully intubated by the nurse assistant professor of anthropology. At the time of this dictation. Awaiting ground mobile ICU transport. Patient was seen in critical condition but hemodynamically stable. A. fib rate has responded well to the diltiazem drip. Pvesy-bs-eexy ultrasound was performed at the time of his respiratory distress and was found to have a moderate sized pericardial effusion. However because of his body habitus and respiratory distress I could not get adequate images to discern whether there was tamponade physiology. A formal echocardiogram was ordered and performed but the results are pending at this time. All images have been forwarded to the [facility] from [facility]. Home Meds and New Rx's Prescriptions: No Action albuterol sulfate [ProAir HFA] 90 mcg/actuation HFA aerosol inhaler 2 puff IH Q6H PRNRF: 0 polyethylene glycol 3350 [Miralax] 17 gram/dose powder 17 gm PO DAILY RF: 0 polyethylene glycol 3350 [Miralax] 17 gram/dose powder 17 gm PO DAILY RF: 0 acetaminophen [Tylenol Extra Strength] 500 mg Tablet 1,000 mg PO PRN PRNRF: 0 quetiapine [Seroquel] 300 mg Tablet 200 mg PO QHS RF: 0 quetiapine [Seroquel] 50 mg Tablet 50 mg PO QHS RF: 0 sertraline 25 mg Tablet 50 mg PO HS RF: 0 amlodipine 10 mg tablet 10 mg PO DAILY Qty: 30 RF: 0 carvedilol [Coreg] 6.25 mg Tablet 6.25 mg PO BID Qty: 60 RF: 0 benzonatate 200 mg Capsule 200 mg PO TID Qty: 30 RF: 0 guaifenesin [Mucinex] 600 mg Tablet Extended Release 12hr 600 mg PO BID Qty: 20 RF: 0 losartan 100 mg tablet 100 mg PO DAILY Qty: 30 RF: 0 furosemide 40 mg Tablet 40 mg PO BID RF: 0 atorvastatin 20 mg Tablet 20 mg PO QHS RF: 0 levothyroxine 50 mcg Tablet 50 mcg PO DAILY RF: 0 metoprolol succinate 100 mg tablet extended release 24 hr 100 mg PO DAILY RF: 0 hydralazine 10 mg Tablet 10 mg PO DAILY RF: 0 torsemide 20 mg Tablet 20 mg PO DAILY RF: 0 warfarin 2.5 mg Tablet 2.5 mg PO DAILY RF: 0 bupropion HCl 100 mg tablet sustained-release 12 hr 100 mg PO DAILY RF: 0 sodium bicarbonate 650 mg Tablet 650 mg PO DAILY RF: 0 ferrous sulfate 325 mg (65 mg iron) Tablet 325 mg PO DAILY RF: 0 calcium carbonate 200 mg calcium (500 mg) Tablet,Chewable 500 mg PO TID RF: 0 Discharge Instructions Instructions: Heart Failure (DC), A-fib (Atrial Fibrillation) (DC), End Stage Kidney Disease (DC) Activity:: bedrest Equipment/Supplies:: No Equipment Needed Diet:: NPO DS: Summary Time Spent with Patient providing and/or coordinating discharge services: Greater than 30 minutes Status at Discharge Functional status at discharge: bed bound Overall status at discharge: patient is not back to baseline Mental Status: mental status grossly normal Speech and Movement: speech and movement normal Mood: congruent mood Affect: normal affect Exam Narrative Exam Narrative: Morbidly obese male who initially was in respiratory distress, tripod position when I first met him early this am diaphoretic, tachypneic and tachycardic but now he is relaxed, breathing much easier and able to talk in complete sentences despite the CPAP mask obese neck, not able to discern JVD, normal carotid pulses other than irregular d/t afib Chest: barrel chest w/ multiple skin lesions (he states that he picks at his skin), no chest wall deformity and no crepitus or asymmetry LUngs: diffuse rales and expiratory wheezes; since going on CPAP his lung sounds have improved heart: no appreciated murmur; but irregularly irregular; no rub Abdomen: obese, soft, nontender; mild distension w/ no guarding or rebound tenderness Legs: obese but no pitting edema Psych Mental Status: mental status grossly normal Speech and Movement: speech and movement normal Mood: congruent mood Affect: normal affect DS: Data Vitals/I&O Vitals and I&O: Vital Signs Temperature 36.6 C 01/21/21 12:46 Temperature Source Temporal Artery Scan 01/21/21 12:46 Pulse 115 H 01/21/21 12:46 Pulse 113 H 01/21/21 05:20 Respiratory Rate 31 H 01/21/21 12:46 Respiratory Effort 01/21/21 12:46 Respiratory Depth Normal 01/21/21 12:46 Respiratory Pattern Normal 01/21/21 12:46 Blood Pressure 103/77 01/21/21 12:46 Blood Pressure Mean 85 01/21/21 12:46 Blood Pressure Position Sitting 01/21/21 12:46 Pulse Oximetry 93 01/21/21 12:46 Oxygen Delivery Method Cpap 01/21/21 12:46 Oxygen Flow Rate 0 01/21/21 03:41 Fraction of Inspired Oxygen (FIO2) 28 01/21/21 09:00 Pain Level 0 01/21/21 12:46 Intake & Output 01/20/21 01/21/21 01/21/21 23:59 11:59 23:59 Intake Total 300 / 300 593.416 / 642.616 49.2 / 642.616 Output Total 275 / 275 350 / 350 Balance 243.416 / 292.616 49.2 / 292.616 Weight 191.8 kg 191 kg Intake: IV 300 / 300 113.416 / 162.616 49.2 / 162.616 Oral 480 / 480 Output: Urine 275 / 275 350 / 350 Other: Urine Color Light Amparo Urine Appearance Clear Urine Odor None Comment voids in urinal dan inserted at 0800 Voiding Methods Urinal # Voids 1 Data Completed and Pending Labs on day of discharge: Labs from last 24 hours 01/21/21 01/21/21 01/21/21 06:00 06:00 06:00 WBC 15.24 H RBC 2.79 L Hgb 7.8 L Hct 24.7 L MCV 88.5 MCH 28.0 MCHC 31.6 L RDW 14.0 Plt Count 249 MPV 10.5 Immature Gran % Neutrophils % Lymphocytes % Monocytes % Eosinophils % Basophils % Nucleated RBC % Absolute Neutrophils Absolute Lymphocytes Absolute Monocytes Absolute Eosinophils Absolute Basophils RBC Morphology PT 29.9 H D INR 3.1 H D APTT ABG Sample Site ABG pH ABG pCO2 ABG pO2 ABG HCO3 ABG Total CO2 ABG O2 Saturation ABG Base Excess VBG pH VBG pCO2 VBG pO2 VBG HCO3 VBG Total CO2 VBG O2 Saturation VBG Base Excess VBG Lactate Oxygen Liter Flow FiO2 Sodium Potassium Chloride Carbon Dioxide Anion Gap BUN Creatinine Estimated GFR/1.73 m2 Glucose Calcium Magnesium Total Bilirubin AST ALT Alkaline Phosphatase Troponin I < 0.05 NT-Pro-B Natriuret Pep Total Protein Albumin Urine Color Urine Clarity Urine pH Ur Specific [place] Urine Protein Urine Ketones Urine Blood Urine Nitrite Urine Bilirubin Urine Urobilinogen Ur Leukocyte Esterase Urine RBC Urine WBC Ur Epithelial Cells Urine Crystals Urine Bacteria Urine Casts Urine Mucus Ur Culture Indicated? Urine Glucose COVID-19 Source SARS-CoV-2 (PCR) 01/21/21 01/20/21 01/20/21 06:00 23:55 21:25 WBC RBC Hgb Hct MCV MCH MCHC RDW Plt Count MPV Immature Gran % Neutrophils % Lymphocytes % Monocytes % Eosinophils % Basophils % Nucleated RBC % Absolute Neutrophils Absolute Lymphocytes Absolute Monocytes Absolute Eosinophils Absolute Basophils RBC Morphology PT INR APTT ABG Sample Site ABG pH ABG pCO2 ABG pO2 ABG HCO3 ABG Total CO2 ABG O2 Saturation ABG Base Excess VBG pH VBG pCO2 VBG pO2 VBG HCO3 VBG Total CO2 VBG O2 Saturation VBG Base Excess VBG Lactate Oxygen Liter Flow FiO2 Sodium 136 Potassium 4.4 Chloride 101 Carbon Dioxide 14.3 L Anion Gap 20.7 H BUN 105 H* Creatinine 14.7 H* Estimated GFR/1.73 m2 3.63 Glucose 123 H Calcium 8.3 L Magnesium Total Bilirubin AST ALT Alkaline Phosphatase Troponin I NT-Pro-B Natriuret Pep Total Protein Albumin Urine Color Yellow Urine Clarity Sl cloudy Urine pH 5.5 Ur Specific [place] 1.025 Urine Protein >=300 H Urine Ketones Negative Urine Blood Small H Urine Nitrite Negative Urine Bilirubin Negative Urine Urobilinogen 0.2 Ur Leukocyte Esterase Trace H Urine RBC 3-5 H Urine WBC 3-5 Ur Epithelial Cells Few Urine Crystals Moderate amorphous Urine Bacteria Few Urine Casts Negative Urine Mucus Negative Ur Culture Indicated? Yes Urine Glucose Negative COVID-19 Source Nasal/nares SARS-CoV-2 (PCR) Negative 01/20/21 01/20/21 01/20/21 20:53 20:17 20:05 WBC RBC Hgb Hct MCV MCH MCHC RDW Plt Count MPV Immature Gran % Neutrophils % Lymphocytes % Monocytes % Eosinophils % Basophils % Nucleated RBC % Absolute Neutrophils Absolute Lymphocytes Absolute Monocytes Absolute Eosinophils Absolute Basophils RBC Morphology PT INR APTT ABG Sample Site Cancelled ABG pH Cancelled ABG pCO2 Cancelled ABG pO2 Cancelled ABG HCO3 Cancelled ABG Total CO2 Cancelled ABG O2 Saturation Cancelled ABG Base Excess Cancelled VBG pH 7.25 L VBG pCO2 29 L VBG pO2 66 VBG HCO3 13 L VBG Total CO2 13 L VBG O2 Saturation 92 VBG Base Excess -14 L VBG Lactate 0.6 Oxygen Liter Flow Cancelled FiO2 Cancelled Sodium Potassium Chloride Carbon Dioxide Anion Gap BUN Creatinine Estimated GFR/1.73 m2 Glucose Calcium Magnesium Total Bilirubin AST ALT Alkaline Phosphatase Troponin I NT-Pro-B Natriuret Pep Total Protein Albumin Urine Color Urine Clarity Urine pH Ur Specific [place] Urine Protein Urine Ketones Urine Blood Urine Nitrite Urine Bilirubin Urine Urobilinogen Ur Leukocyte Esterase Urine RBC Urine WBC Ur Epithelial Cells Urine Crystals Urine Bacteria Urine Casts Urine Mucus Ur Culture Indicated? Urine Glucose COVID-19 Source SARS-CoV-2 (PCR) 01/20/21 01/20/21 01/20/21 19:05 19:05 19:05 WBC 15.28 H RBC 2.93 L Hgb 8.3 L Hct 25.3 L MCV 86.3 MCH 28.3 MCHC 32.8 RDW 14.0 Plt Count 255 MPV 10.7 Immature Gran % 1.6 Neutrophils % 81.8 Lymphocytes % 4.2 Monocytes % 11.5 Eosinophils % 0.6 Basophils % 0.3 Nucleated RBC % 0 Absolute Neutrophils 12.50 H Absolute Lymphocytes 0.64 L Absolute Monocytes 1.76 H Absolute Eosinophils 0.09 Absolute Basophils 0.05 RBC Morphology Normal PT 19.0 H D INR 1.9 H D APTT 33.2 H ABG Sample Site ABG pH ABG pCO2 ABG pO2 ABG HCO3 ABG Total CO2 ABG O2 Saturation ABG Base Excess VBG pH VBG pCO2 VBG pO2 VBG HCO3 VBG Total CO2 VBG O2 Saturation VBG Base Excess VBG Lactate Oxygen Liter Flow FiO2 Sodium Potassium Chloride Carbon Dioxide Anion Gap BUN Creatinine Estimated GFR/1.73 m2 Glucose Calcium Magnesium Total Bilirubin AST ALT Alkaline Phosphatase Troponin I NT-Pro-B Natriuret Pep 4057 H Total Protein Albumin Urine Color Urine Clarity Urine pH Ur Specific [place] Urine Protein Urine Ketones Urine Blood Urine Nitrite Urine Bilirubin Urine Urobilinogen Ur Leukocyte Esterase Urine RBC Urine WBC Ur Epithelial Cells Urine Crystals Urine Bacteria Urine Casts Urine Mucus Ur Culture Indicated? Urine Glucose COVID-19 Source SARS-CoV-2 (PCR) 01/20/21 19:05 WBC RBC Hgb Hct MCV MCH MCHC RDW Plt Count MPV Immature Gran % Neutrophils % Lymphocytes % Monocytes % Eosinophils % Basophils % Nucleated RBC % Absolute Neutrophils Absolute Lymphocytes Absolute Monocytes Absolute Eosinophils Absolute Basophils RBC Morphology PT INR APTT ABG Sample Site ABG pH ABG pCO2 ABG pO2 ABG HCO3 ABG Total CO2 ABG O2 Saturation ABG Base Excess VBG pH VBG pCO2 VBG pO2 VBG HCO3 VBG Total CO2 VBG O2 Saturation VBG Base Excess VBG Lactate Oxygen Liter Flow FiO2 Sodium 136 Potassium 4.2 Chloride 101 Carbon Dioxide 14.4 L Anion Gap 20.6 H BUN 100 H* Creatinine 14.2 H* Estimated GFR/1.73 m2 3.78 Glucose 115 H Calcium 8.2 L Magnesium 2.1 Total Bilirubin 0.3 AST 14 L ALT 39 Alkaline Phosphatase 168 H Troponin I < 0.05 NT-Pro-B Natriuret Pep Total Protein 7.2 Albumin 2.4 L Urine Color Urine Clarity Urine pH Ur Specific [place] Urine Protein Urine Ketones Urine Blood Urine Nitrite Urine Bilirubin Urine Urobilinogen Ur Leukocyte Esterase Urine RBC Urine WBC Ur Epithelial Cells Urine Crystals Urine Bacteria Urine Casts Urine Mucus Ur Culture Indicated? Urine Glucose COVID-19 Source SARS-CoV-2 (PCR) 01/20/21 23:55 Urine - Reflex from Urine Culture - Pending 01/20/21 21:03 Blood Blood Culture - Pending 01/20/21 20:53 Blood Blood Culture - Pending Preliminary micro results at discharge 01/20/21 23:55 Urine Culture - Pending Urine - Reflex from Ua 01/20/21 21:03 Blood Culture - Pending Blood 01/20/21 20:53 Blood Culture - Pending Blood [facility] Medical History Abnormal CT of the abdomen Anxiety disorder Bronchitis, acute, with bronchospasm Chronic kidney disease Depression Enlarged prostate Essential hypertension, benign Hyperlipidemia Hypothyroidism (acquired) Obstructive sleep apnea PTSD (post-traumatic stress disorder) Pulmonary nodules/lesions, multiple Shortness of breath Sleep disturbance Surgical History No pertinent past surgical history Social History Smoking/Tobacco Use Status: Current-Occasional Tobacco Type: cigarettes Smoking packs per day: 0.5 Smoking cigarettes per day: 10.0 Years smoked: 2 Smoking pack-years: 1.00 Smoking risk assessment performed?: Yes Alcohol Intake: former Drug use: Never Substance use type: does not use Do you feel safe at home: Yes Do you feel safe in your relationship?: Yes
--- NOTE | 2021-01-21 13:45 | W.ANESAIR ---
Airway Management Note Procedure Date and Time DO NOT use this note for patients in the OR, Use Intraop Record Instead Date Performed: 01/21/21 Procedure Time: 13:29 Procedure Location Procedure Location: Intensive Care Unit Requesting Provider: Tomasz Man Number of Previous Intubation attempts by other providers: 0 Procedure Type Procedure Type: Urgent Pre-Induction Setup Sterility: Hand Hygiene, Surgical Cap, Surgical Mask and Eye Protection Preinduction Setup: Standard monitors applied, BVM at bedside, Suction ready, Airway equipment ready, Medications ready, IV/IO access patent & flowing and Post induction medications ready Induction Induction Time: 13:32 Induction setup: Pt. evaluated prior to induction, Pt. Ramped, Head of Bed Elevated, BiPAP/CPAP and Rapid Sequence Induction Induction Medications (Indicate Dose Given): Versed IV Dose:: 2 , Etomidate IV Dose:: 40 mg, Rocuronium IV Dose:: 100 mg and Phenylephrine IV Dose:: 160 mcg Mask Ventilation: None Airway Device Airway Type: Intubation Laryngoscopy: Atraumatic Laryngoscopy and Teeth Intact Airway Grade: 1 Airway Blades: Glidescope 4 Endotracheal Tube: Oral, Stylet Used and 8.0mm ETT Depth Where Secured (cm): 24 Placement Confirmation: Cuff inflated with minimally occlusive pressure, Secured with commercial device, Bilateral breath sounds and Depth to Lips Number of Attempts (See previous attempts in note section): 1 Post Induction Management Post Induction Medications (Indicate Dose Given): Managed by Requesting Provider Gastric Tube Gastric Tube: Placed by Other Person Procedure Complications Procedure Complications: None Procedure Outcome Procedure Outcome: Successful Proceduralist Performed By: Jenny Calix Supervised By: Scar Snow
--- NOTE | 2021-01-21 13:56 | DI.RAD_ITS ---
Exam(s) XR PORTABLE CHEST AP EXAM: XR PORTABLE CHEST AP CLINICAL HISTORY: Post Intubation TECHNIQUE: 2D digital imaging was performed. COMPARISON: CR,XR XR PORTABLE CHEST AP from 01/20/2021 FINDINGS: MEDIASTINUM: Normal. HEART: Enlarged cardiac silhouette. PULMONARY VASCULATURE: Normal. LUNGS: Bilateral pulmonary infiltrates. PLEURAL SPACE: No pleural effusion or pneumothorax. BONE:Within normal limits for the patient's age. OTHER FINDINGS:The tip of the endotracheal tube is in good position 5 cm above the miriam. There is an orogastric tube present. The tip is not well visualized. The most distal visualized portion of t he orogastric tube is seen just above the level of the diaphragms. A KUB should be considered for fu rther evaluation. IMPRESSION: 1. Tip of the endotracheal tube is in good position 5 cm above the miriam. 2. The distal aspect of the orogastric tube is not well visualized. The most distal aspect of the or ogastric tube is seen just above the level of the diaphragms. DATA REPOSITORY: RADIATION DOSE DELIVERED:
[2021-01-21] MEDS: Phenylephrine 800 MCG/10 ML SYR 100 MCG IVP ×2 (14:08→14:20)
[2021-01-21] MEDS: PROPOFOL 1,000 MG/100 ML BTL 25 MG IVPB (14:09)
[2021-01-21 14:21] LABS: HCO3 14 mmol/L (22-26); pCO2 47 mmHg (35-45); pO2 71 mmHg (80-105); sO2 89 % (95-98); tCO2 14 mmol/L (23-27)
[2021-01-21 14:27] LABS: FIO2 100 %; Site Left Radial; pH 7.09 (7.35-7.45)
[2021-01-21] MEDS: Pantoprazole 40 MG VIAL IVP (14:44)
[2021-01-21] MEDS: LORazepam 2 MG/ML VIAL 1 MG IVP (14:55)
[2021-01-21] MEDS: Sodium Bicarbonate 50 MEQ/50 ML SYR IVP (15:46)
== END 2021-01-21 17:00 | disposition short-term general hospital (02) ==
LOC: ER 23:59 → ICU 01-21 01:55
PROVIDERS: Internal Medicine; Admitting Provider General Practice; Emergency Provider Physician Assistant; PCP Nurse Practitioner Family; Visit Provider General Practice
DX: I13.0 Hypertensive heart and chronic kidney disease with heart failure and stage 1 through stage 4 chronic kidney disease, or unspecified chronic kidney disease (principal); J96.01 Acute respiratory failure with hypoxia; I48.91 Unspecified atrial fibrillation; N17.9 Acute kidney failure, unspecified; E66.01 Morbid (severe) obesity due to excess calories; Z68.43 Body mass index [BMI] 50.0-59.9, adult; E78.5 Hyperlipidemia, unspecified; E03.9 Hypothyroidism, unspecified; Z20.822 Contact with and (suspected) exposure to COVID-19; R07.89 Other chest pain; F41.9 Anxiety disorder, unspecified; F32.9 Major depressive disorder, single episode, unspecified; N40.0 Benign prostatic hyperplasia without lower urinary tract symptoms; G47.33 Obstructive sleep apnea (adult) (pediatric); F43.10 Post-traumatic stress disorder, unspecified; R91.8 Other nonspecific abnormal finding of lung field; F17.210 Nicotine dependence, cigarettes, uncomplicated; I50.9 Heart failure, unspecified; N18.9 Chronic kidney disease, unspecified; D64.9 Anemia, unspecified
CPT/HCPCS: 36410; 36415; 80048; 80053; 82805; 85027; 87040; 87635; 93005; 96361; 96365; 96375; 96376; 99291; 99292; 36600; 71045; 81003; 81015; 83605; 83735; 83880; 84484; 85025; 85610; 85730; 87086; 93010; 93306; 94002; 94660; 99217; 99219; G0378; J1940; J2060; J2250; J2270; J2370; J2543